=== PATIENT | female | born 1945 | race Two or more races ===

== ENCOUNTER 2020-03-09 12:17 | Emergency (ER) | payer MEDICARE, OTHER, SELFPAY ==
--- NOTE | 2020-03-09 | CT_ITS ---
EXAMINATION: CT HEAD WITHOUT CONTRAST CLINICAL INFORMATION: Severe right sided headache; history of Covid-19 infection and hypertension. COMPARISON: None TECHNIQUE: Contiguous axial imaging was performed from the skull base to vertex without intravenous administration of contrast. Multiplanar reformatted images are submitted. This CT examination was performed using dose optimization techniques as appropriate, variously including the following: *Automated exposure control *Adjustment of mA and/or kV according to patient size (this includes techniques or standardized protocols for targeted exams where dose is matched to indication/reason for exam; i.e. extremities or head) *Use of iterative reconstruction technique DLP: 643 mGy-cm FINDINGS: There is no evidence of acute intracranial hemorrhage or territorial infarction. No abnormal mass effect or midline shift is seen. Lozano to white matter differentiation is well preserved. No extra-axial fluid collections are identified. The ventricles are normal in size. There is no abnormal attenuation within the brain parenchyma. The osseous structures and soft tissues are normal. The mastoid air cells and visualized portions of the paranasal sinuses are well aerated. IMPRESSION: No acute intracranial pathology.
--- NOTE | 2020-03-09 | CT_ITS ---
CT ANGIOGRAM NECK WITH CONTRAST CT ANGIOGRAM BRAIN WITH CONTRAST CLINICAL INFORMATION: Severe headache and right-sided neck pain. COMPARISON: CT head performed earlier the same day. TECHNIQUE: Test bolus sequences followed by intravenous administration 70 mL of Omnipaque 350. Helical imaging was performed in the axial plane from the thoracic inlet to the skull vertex. Delayed postcontrast imaging of the head was also performed. The data was processed at the sleep technologist workstation for generation of MIP sequences. Angled MIPs and volume rendered reformatted images were also generated at an offline 3D workstation under concurrent supervision. Stenoses are assessed in accordance with NASCET criteria unless otherwise indicated. This CT examination was performed using dose optimization techniques as appropriate, variously including the following: *Automated exposure control *Adjustment of mA and/or kV according to patient size (this includes techniques or standardized protocols for targeted exams where dose is matched to indication/reason for exam; i.e. extremities or head) *Use of iterative reconstruction technique FINDINGS: BRAIN: [There is mild chronic microangiopathy. There is no intracranial hemorrhage, hydrocephalus, extra-axial surface collection, midline shift, or other herniation pattern. Lozano to white matter differentiation is diffusely maintained without evidence of an evolved acute territorial infarct. The basilar cisterns are preserved. No significant soft tissue abnormality. No acute osseous abnormality. The paranasal sinuses and the mastoid air cells are well aerated.] CERVICAL SOFT TISSUES AND LUNG APICES: Patchy groundglass and airspace opacities throughout the lungs bilaterally that are nonspecific and that can be followed with chest x-ray. There is multilevel cervical spondylosis. NECK CTA: [There is a classic 3 vessel configuration of the aortic arch. Proximal arch vessels are non-stenotic. The vertebral arteries are codominant. No significant ostial stenosis is visualized on either side. Both vertebral arteries are widely patent throughout their extracranial cervical course. Both common and internal carotid arteries are normal in course and caliber.] Atherosclerotic calcification of the carotid bifurcations bilaterally without significant stenosis. BRAIN CTA: Atherosclerotic calcification throughout the carotid siphons bilaterally without significant stenosis. No focal flow-limiting stenosis nor discrete proximal large artery occlusion. Assessment for aneurysms is limited by mixed arterial and venous phase bolus timing with no definite aneurysms identified accounting for artifact. Timing of the contrast bolus allows assessment of the major dural venous sinuses, which all opacify normally] IMPRESSION: - No acute intracranial findings. Mild chronic microangiopathy. - No acute arterial occlusions and no significant arterial stenoses within the head or neck. - There is multilevel cervical spondylosis. - Patchy groundglass and airspace opacities throughout the lungs bilaterally that are nonspecific and that can be followed with chest x-ray. Viral pulmonary infection not excluded.
[2020-03-09 12:34] VITALS: BP 139/76; PULSE 78; RESP 18; TEMP 35.8; O2SAT 97; BMI 30.9
--- NOTE | 2020-03-09 12:46 | ED_ITS ---
HPI - Headache General Chief Complaint: Headache <ZARA Hancock - Last Filed: 03/09/20 18:01> Stated Complaint: HEADACHE <ZARA Hancock - Last Filed: 03/09/20 18:01> Time Seen by Provider: 03/09/20 12:42 <ZARA Hancock - Last Filed: 03/09/20 18:01> Source: patient <ZARA Hancock - Last Filed: 03/09/20 18:01> Mode of arrival: ambulatory <ZARA Hancock - Last Filed: 03/09/20 18:01> Limitations: language barrier <ZARA Hancock - Last Filed: 03/09/20 18:01> History of Present Illness HPI Narrative: 74 y/o female with history of HTN, OA, s/p right total knee arthroplasty and recent admission here 02/22-02/27 due to COVID-19 related SOB and JAZMYNE presents today with right sided headache and neck pain that started at 6:15 this morning. Worse when laying flat, moving head/neck and with touch. No light or sound sensitivity. Denies trauma. <ZARA Hancock - Last Filed: 03/09/20 18:01> MD elicited complaint: headache <ZARA Hancock - Last Filed: 03/09/20 18:01> Pertinent past history: hypertension <ZARA Hancock - Last Filed: 03/09/20 18:01> Onset (ago): hour(s) <ZARA Hancock - Last Filed: 03/09/20 18:01> Time: 06:15 <ZARA Hancock - Last Filed: 03/09/20 18:01> Onset description: while at rest <ZARA Hancock - Last Filed: 03/09/20 18:01> Location: right, occipital, parietal and neck <ZARA Hancock - Last Filed: 03/09/20 18:01> Severity: severe <ZARA Hancock - Last Filed: 03/09/20 18:01> Quality & Timing: aching and constant <ZARA Hancock - Last Filed: 03/09/20 18:01> Exacerbating factors: movement of head/neck and other (laying down ) <ZARA Hancock Last Filed: 03/09/20 18:01> Relieving factors: nothing <ZARA Hancock Last Filed: 03/09/20 18:01> Context: occurred at rest <ZARA Hancock Last Filed: 03/09/20 18:01> Associated symptoms: neck stiffness <ZARA Hancock Last Filed: 03/09/20 18:01> Treatments prior to arrival: acetaminophen <ZARA Hancock Last Filed: 03/09/20 18:01> Related Data Home Medications: Previous Rx's Medication Instructions Recorded zfomtmfjig-idnnequzscfrq-phcx 1 cap PO Q6H PRN #10 cap 03/09/20 [Fioricet] tizanidine 2 mg PO TID PRN #10 tab 03/09/20 <ZARA Hancock Last Filed: 03/09/20 18:01> Allergies/Adverse Reactions: Allergies Allergy/AdvReac Type Severity Reaction Status Date / Time SEASONAL ALLERGIES Allergy Intermediate SNEEZING Uncoded 02/23/20 15:36 kyree inhibitors Allergy Unknown Uncoded 07/26/19 00:00 pollen Allergy Unknown Uncoded 07/26/19 00:00 <ZARA Hancock Last Filed: 03/09/20 18:01> Review of Systems Constitutional: Constitutional: Denies chills, Denies fever(s) and Reports headache(s) <ZARA Hancock Last Filed: 03/09/20 18:01> Eyes: Eyes: Denies blurry vision, Denies change in vision and Denies diplopia <ZARA Hancock Last Filed: 03/09/20 18:01> ENT: Reports Normal hearing present, Denies dental pain, Denies vertigo, Denies dizziness, Denies otalgia, Reports headache(s), Denies hearing loss, Reports neck pain, Denies disequilibrium, Denies tinnitus, Denies sinus pain and Denies sinus pressure <ZARA Hancock Last Filed: 03/09/20 18:01> Cardiovascular: Cardiovascular: Denies chest pain and Denies dyspnea <ZARA Hancock - Last Filed: 03/09/20 18:01> Respiratory: Respiratory: Denies cough, Denies dyspnea and Denies wheezing <ZARA Hancock Last Filed: 03/09/20 18:01> Gastrointestinal: Gastrointestinal: Denies abdominal pain, Denies diarrhea, Denies nausea and Denies vomiting <ZARA Hancock Last Filed: 03/09/20 18:01> Musculoskeletal: Musculoskeletal: Denies abnormal gait, Denies back pain, Reports neck pain and Denies numbness <ZARA Hancock - Last Filed: 03/09/20 18:01> Integumentary/Breasts: Skin/Breast: Reports system reviewed and no additional complaints, except as docu <ZARA Hancock Last Filed: 03/09/20 18:01> Neurologic: Reports Normal hearing present, Denies abnormal gait, Denies vertigo, Denies dizziness, Reports headache(s), Denies focal weakness, Denies numbness and Denies disequilibrium <ZARA Hancock Last Filed: 03/09/20 18:01> Psychiatric: Psychiatric: Reports no additional psychiatric complaints <ZARA Hancock Last Filed: 03/09/20 18:01> Endocrine: Endocrine: Reports no additional endocrine complaints <ZARA Hancock Last Filed: 03/09/20 18:01> Hematologic/Lymphatic: Hematologic/Lymphatic: Reports no additional hematologic/lymphatic complaints <ZARA Hancock Last Filed: 03/09/20 18:01> Allergic/Immunologic: Allergic/Immunologic: Denies wheezing <ZARA Hancock Last Filed: 03/09/20 18:01> [facility] Past Medical History Attestation statement: The following information was validated with the patient. <ZARA Hancock Last Filed: 03/09/20 18:01> Medical History: Medical History Arthritis Hypertension <ZARA Hancock - Last Filed: 03/09/20 18:01> Surgical History: Surgical History Total knee replacement status <ZARA Hancock - Last Filed: 03/09/20 18:01> Social History Social History: Social History Smoked in Last 30 Days: No Use of substances other than those prescribed or required for medical reasons: No Advance Directives: Yes Advance Directives Information Provided: Yes Advance Directives on File: No <ZARA Hancock - Last Filed: 03/09/20 18:01> Physical Exam Vital Signs and I&O and Narrative: Vital Signs and I&O: Vital Signs Temp 98.8 F 03/09/20 13:18 Pulse 80 03/09/20 16:46 Resp 20 03/09/20 16:46 BP 163/74 H 03/09/20 16:46 Pulse Ox 98 03/09/20 16:46 Intake & Output 03/09/20 03/09/20 03/10/20 06:59 18:59 06:59 Intake Total 1000 / 1000 Balance 1000 / 1000 Weight 79.379 kg Intake: Intake, IV Amoun t 1000 / 1000 0.9 % Sodium C hloride 1,000 ml 1000 / 1000 @ 999 mls/hr I VCONT .Q1H1M [facility] Rx#:[id number] Body Mass Index 30.9 <ZARA Hancock - Last Filed: 03/09/20 18:01> Vital Signs and I&O: Vital Signs Temp 98.8 F 03/09/20 13:18 Pulse 80 03/09/20 16:46 Resp 20 03/09/20 16:46 BP 163/74 H 03/09/20 16:46 Pulse Ox 98 03/09/20 16:46 Intake & Output 03/09/20 03/09/20 03/10/20 06:59 18:59 06:59 Intake Total 1000 / 1000 Balance 1000 / 1000 Weight 79.379 kg Intake: Intake, IV Amoun t 1000 / 1000 0.9 % Sodium C hloride 1,000 ml 1000 / 1000 @ 999 mls/hr I VCONT .Q1H1M [facility]OTT Rx#:[id number] Body Mass Index 30.9 <Darren Hernandez DO - Last Filed: 03/09/20 20:20> Const: General: cooperative, healthy appearing and no acute distress <ZARA Hancock - Last Filed: 03/09/20 18:01> Nutritional Appearance: average body habitus <ZARA Hancock Last Filed: 03/09/20 18:01> Orientation/consciousness: patient oriented x3 <ZARA Hancock - Last Filed: 03/09/20 18:01> Limitations: ambulation with cane <ZARA Hancock Last Filed: 03/09/20 18:01> HENMT: Head: Yes normal to inspection, Yes normocephalic, Yes atraumatic and Yes scalp tenderness (right parietal and right occipital ) <ZARA Hancock Last Filed: 03/09/20 18:01> Ears: hearing grossly normal bilaterally <ZARA Hancock Last Filed: 03/09/20 18:> General nose exam: Normal external nose present <ZARA Hancock Last Filed: 03/09/20 18:01> Face and sinus: Yes normal facial exam <ZARA Hancock Last Filed: 03/09/20 18:01> Mouth: Normal oral and palatal mucosa present <ZARA Hancock Last Filed: 03/09/20 18:01> Teeth and gingiva: dentition normal <ZARA Hancock Last Filed: 03/09/20 18:01> Throat: Yes posterior oropharynx normal <ZARA Hancock Last Filed: 03/09/20 18:01> Eyes: General: appearance normal, both eyes and all related structures <ZARA Hancock Last Filed: 03/09/20 18:01> Pupils: Equal, round and reactive pupils present <ZARA Hancock Last Filed: 03/09/20 18:01> EOM: EOMs intact bilaterally <ZARA Hancock Last Filed: 03/09/20 18:01> Neck: Neck: Yes normal visual inspection, Yes trachea midline, Yes tender (along lateral and anterior aspect of neck) and Yes torticollis <ZARA Hancock Last Filed: 03/09/20 18:01> Thyroid: Thyroid normal <ZARA Hancock Last Filed: 03/09/20 18:01> Chest: Chest palpation & inspection: normal inspection of the chest <ZARA Hancock Last Filed: 03/09/20 18:01> Resp: Effort & Inspection: normal respiratory effort <ZARA Hancock Last Filed: 03/09/20 18:> Auscultation: clear to auscultation bilaterally <ZARA Hancock Last Filed: 03/09/20 18:> Cardio: Rate: regular rate <ZARA Hancock Last Filed: 03/09/20 18:> Rhythm: regular rhythm <ZARA Hancock Last Filed: 03/09/20 18:> Heart sounds: S1 normal heart sound present and S2 normal heart sound present <ZARA Hancock Last Filed: 03/09/20 18:01> Back/Spine/Pelvis: Cervical Spine: pain with cervical ROM, cervical spasm, No Cervical spine tenderness, No step off deformity and cervical ROM abnormal <ZARA Hancock Last Filed: 03/09/20 18:> Thoracic/Lumbar Spine: thoracic and lumbar spine normal to inspection <ZARA Hancock Last Filed: 03/09/20 18:> Skin: General skin exam: no rashes or lesions noted <ZARA Hancock Last Filed: 03/09/20 18:> Neuro: General: patient oriented x3 <ZARA Hancock Last Filed: 03/09/20 18:> Cranial nerves: Yes CN's II-XII intact bilaterally, Yes Equal, round and reactive pupils present and Yes Normal hearing present <ZARA Hancock Last Filed: 03/09/20 18:> Cognition (Neuro): normal cognition <ZARA Hancock Last Filed: 03/09/20 18:> Gait exam (Neuro): Normal gait present <ZARA Hancock Last Filed: 03/09/20 18:01> Motor exam (neuro): 5/5 motor strength present throughout and Pronator motor function not present <ZARA Hancock Last Filed: 03/09/20 18:01> Coordination: yywumz-tx-emxb test normal and yblr-fd-udfq test normal <ZARA Hancock - Last Filed: 03/09/20 18:01> Extrem: Right upper extremity: normal to inspection <ZARA Hancock - Last Filed: 03/09/20 18:01> Psych: Appearance: grossly normal <ZARA Hancock - Last Filed: 03/09/20 18:01> Mental Status: mental status grossly normal <ZARA Hancock Last Filed: 03/09/20 18:01> Speech and movement: Normal speech and movement present <ZARA Hancock - Last Filed: 03/09/20 18:01> Course Course Hospital Course: reports severe right sided headache at 6:15 am - took tylenol with no improvement. PCP insructed her to come into ED for evaluation. Non-focal neuro exam. Hx HTN and recent COVID-19. Will get CT head, basic labs. Low dose morphine ordered for now. <ZARA Hancock Last Filed: 03/09/20 18:01> Reevaluation(s) Reevaluation #1: CT head was negative. Patient's headache significantly improved after low dose of morphine. Labs show leuokcytosis of unclear etiology as well as signs of mild dehydration. Will give 1L IVF. <ZARA Hancock - Last Filed: 03/09/20 18:01> Time: 17:03 <ZARA Hancock - Last Filed: 03/09/20 18:01> Reevaluation #2: CTA head/neck was unmarkable. Etiology of her neck pain likely muscular. She has some improvement in her headache after morphine x2 and low dose ativan. <ZARA Hancock - Last Filed: 03/09/20 18:01> Time: 17:55 <ZARA Hancock Last Filed: 03/09/20 18:01> Reevaluation #3: patient's headache and neck soreness are improved. she is stable for discharge. <ZARA Hancock Last Filed: 03/09/20 18:01> MDM - Headache Differential Diagnosis Differential diagnosis: Likely migraine, tension headache, subarachnoid hemorrhage and headache <ZARA Hancock Last Filed: 03/09/20 18:01> Medical Records Attestation: I reviewed the patient's medical records. <ZARA Hancock - Last Filed: 03/09/20 18:01> Lab Data Attestation: I reviewed the patient's lab results. <ZARA Hnacock - Last Filed: 03/09/20 18:01> Result diagrams: : 03/09/20 13:25 03/09/20 13:25 <ZARA Hancock - Last Filed: 03/09/20 18:01> Labs: Lab Results 03/09/20 03/09/20 Range/Units 13:25 13:25 WBC 14.5 H (4.8-10.8) X10*3/uL RBC 4.86 (4.20-5.50) X10*6/uL Hgb 13.9 (12.0-16.0) g/dl Hct 41.1 (37-47) % MCV 84.6 (80-98) fL MCH 28.6 (27.0-33.0) pg MCHC 33.8 (31.0-35.0) g/dl RDW 13.1 (11.0-16.0) % Plt Count 269 (160-400) X10*3/uL MPV 10.3 (9.4-12.3) fL Immature Gran % (Auto) 0.8 H (0.0-0.4) % Neut % (Auto) 80.3 H (45-73) % Lymph % (Auto) 10.2 L (20-40) % [place] % (Auto) 7.8 (2-11) % Eos % (Auto) 0.8 (0-4) % Baso % (Auto) 0.1 (0-2) % Neut # (Auto) 11.6 H (2.0-8.3) X10*3/uL Lymph # (Auto) 1.5 (1.2-4.9) X10*3/uL [place] # (Auto) 1.1 (0.1-1.2) X10*3/uL Eos # (Auto) 0.1 (0.0-0.4) X10*3/uL Baso # (Auto) 0.0 (0.0-0.2) X10*3/uL Abs Immat Gran (auto) 0.12 H (0.00-0.03) X10*3/uL Absolute Nucleated RBC 0.000 (0.0-0.012) X10*3/uL Nucleated RBC % (auto) 0.0 (0.0-0.2) /100WBC Sodium 134 L (135-145) mmol/L Potassium 3.5 (3.3-5.1) mmol/l Chloride 94 L (96-108) mmol/L Carbon Dioxide 30 H (22-29) mmol/L Anion Gap 14 (12-20) BUN 22 H (9-16) mg/dL Creatinine 0.93 (0.5-1.4) mg/dL Estim Creat Clear Calc 52.1 Estimated GFR 59 Random Glucose 121 H (60-115) mg/dL Calcium 8.8 (8.4-10.2) mg/dL <ZARA Hancock - Last Filed: 03/09/20 18:01> Lab Results 03/09/20 03/09/20 Range/Units 13:25 13:25 WBC 14.5 H (4.8-10.8) X10*3/uL RBC 4.86 (4.20-5.50) X10*6/uL Hgb 13.9 (12.0-16.0) g/dl Hct 41.1 (37-47) % MCV 84.6 (80-98) fL MCH 28.6 (27.0-33.0) pg MCHC 33.8 (31.0-35.0) g/dl RDW 13.1 (11.0-16.0) % Plt Count 269 (160-400) X10*3/uL MPV 10.3 (9.4-12.3) fL Immature Gran % (Auto) 0.8 H (0.0-0.4) % Neut % (Auto) 80.3 H (45-73) % Lymph % (Auto) 10.2 L (20-40) % [place] % (Auto) 7.8 (2-11) % Eos % (Auto) 0.8 (0-4) % Baso % (Auto) 0.1 (0-2) % Neut # (Auto) 11.6 H (2.0-8.3) X10*3/uL Lymph # (Auto) 1.5 (1.2-4.9) X10*3/uL [place] # (Auto) 1.1 (0.1-1.2) X10*3/uL Eos # (Auto) 0.1 (0.0-0.4) X10*3/uL Baso # (Auto) 0.0 (0.0-0.2) X10*3/uL Abs Immat Gran (auto) 0.12 H (0.00-0.03) X10*3/uL Absolute Nucleated RBC 0.000 (0.0-0.012) X10*3/uL Nucleated RBC % (auto) 0.0 (0.0-0.2) /100WBC Sodium 134 L (135-145) mmol/L Potassium 3.5 (3.3-5.1) mmol/l Chloride 94 L (96-108) mmol/L Carbon Dioxide 30 H (22-29) mmol/L Anion Gap 14 (12-20) BUN 22 H (9-16) mg/dL Creatinine 0.93 (0.5-1.4) mg/dL Estim Creat Clear Calc 52.1 Estimated GFR 59 Random Glucose 121 H (60-115) mg/dL Calcium 8.8 (8.4-10.2) mg/dL <Darren Hernandez DO - Last Filed: 03/09/20 20:20> Discharge Plan Discharge Clinical Impression: Headache Qualifiers: Headache type: tension-type Headache chronicity pattern: acute headache Intractability: intractable Qualified Code(s): G44.201 - Tension-type headache, unspecified, intractable Cervical muscle strain Qualifiers: Encounter type: initial encounter Qualified Code(s): S16.1XXA - Strain of muscle, fascia and tendon at neck level, initial encounter <ZARA Hancock - Last Filed: 03/09/20 18:01> Patient Disposition: Home, Self-Care <ZARA Hancock - Last Filed: 03/09/20 18:01> Instructions: Cervical Strain (ED), Acute Headache (ED) <ZARA Hancock - Last Filed: 03/09/20 18:01> Additional Instructions: Follow up with your Primary Care Doctor as needed. Your CT scans of your head and neck were unremarkable today. <ZARA Hancock - Last Filed: 03/09/20 18:01> Prescriptions: New tizanidine 2 mg tablet 2 mg PO TID PRN (Reason: muscle spasticity) Qty: 10 RF: 0 tpdkomexzm-ebotibzfntika-vqdb [Fioricet] 50-300-40 mg capsule 1 cap PO Q6H PRN (Reason: pain) Qty: 10 RF: 0 <ZARA Hancock - Last Filed: 03/09/20 18:01> Interventions: ED Discharge Assessment Last Done: 03/09/20 18:16 <ZARA Hancock - Last Filed: 03/09/20 18:01> Discharge Date/Time: 03/09/20 18:18 <ZARA Hancock - Last Filed: 03/09/20 18:01>
[2020-03-09 13:18] VITALS: BP 133/72; PULSE 85; RESP 18; TEMP 37.1; O2SAT 98
[2020-03-09] MEDS: Morphine Sulfate 2 MG/ML CARTRIDGE IVPUSH ×2 (13:22→16:48)
[2020-03-09 13:36] LABS: MANUAL DIFF FLAG NO
[2020-03-09 13:46] LABS: Basophils Percent Auto 0.1 % (0-2); Eosinophils Absolute Auto 0.1 X10*3/uL (0.0-0.4); Eosinophils Percent Auto 0.8 % (0-4); Hematocrit 41.1 % (37-47); Hemoglobin 13.9 g/dl (12.0-16.0); Imm Gran Abs Auto 0.12 X10*3/uL (0.00-0.03); Imm Gran Pct Auto 0.8 % (0.0-0.4); Lymphocytes Absolute Auto 1.5 X10*3/uL (1.2-4.9); Lymphocytes Percent Auto 10.2 % (20-40); Mean Corpuscular HGB Conc 33.8 g/dl (31.0-35.0); Mean Corpuscular Hemoglobin 28.6 pg (27.0-33.0); Mean Corpuscular Volume 84.6 fL (80-98); Mean Platelet Volume 10.3 fL (9.4-12.3); Monocytes Absolute Auto 1.1 X10*3/uL (0.1-1.2); Monocytes Percent Auto 7.8 % (2-11); Neutrophils Absolute Auto 11.6 X10*3/uL (2.0-8.3); Neutrophils Percent Auto 80.3 % (45-73); Platelet Count 269 X10*3/uL (160-400); Red Blood Count 4.86 X10*6/uL (4.20-5.50); Red Cell Distribution Width 13.1 % (11.0-16.0); White Blood Count 14.5 X10*3/uL (4.8-10.8)
[2020-03-09 14:07] LABS: Anion Gap 14 (12-20); Blood Urea Nitrogen 22 mg/dL (9-16); Calcium 8.8 mg/dL (8.4-10.2); Carbon Dioxide 30 mmol/L (22-29); Chloride 94 mmol/L (96-108); Creatinine Clr Calc Pharmacy 52.1; Estimated Glomerular Filt Rate 59; Glucose Random 121 mg/dL (60-115); Potassium 3.5 mmol/l (3.3-5.1); Sodium 134 mmol/L (135-145)
[2020-03-09 14:40] VITALS: BP 179/73; PULSE 74; O2SAT 97
[2020-03-09] MEDS: 0.9 % Sodium Chloride 1,000 ML 999 ML IVCONT (14:42)
[2020-03-09] MEDS: iohexoL 350 MG/ML 100 ML INFUS..BTL IV (15:43)
[2020-03-09] MEDS: LORazepam 2 MG/ML VIAL 0.5 MG IVPUSH (15:44)
[2020-03-09 15:49] VITALS: BP 165/75
[2020-03-09 16:46] VITALS: BP 163/74; PULSE 80; RESP 20; O2SAT 98
== END 2020-03-09 18:18 | disposition home or self-care (01) ==
PROVIDERS: Physician Assistant; Emergency Provider Emergency Medicine; PCP Family Medicine
DX: G44.201 Tension-type headache, unspecified, intractable (principal); S16.1XXA Strain of muscle, fascia and tendon at neck level, initial encounter; X58.XXXA Exposure to other specified factors, initial encounter; I10 Essential (primary) hypertension; Y93.84 Activity, sleeping; Y92.013 Bedroom of single-family (private) house as the place of occurrence of the external cause; Y99.9 Unspecified external cause status
CPT/HCPCS: 36415; 70450; 70496; 70498; 80048; 85025; 96361; 96374; 96375; 96376; 99284; J2060; J2270

== ENCOUNTER 2020-05-16 12:00 | Outpatient (RCR) | payer MEDICARE, MEDICAID, OTHER, SELFPAY | END 2020-05-16 15:36 | disposition other institution (70) | LOC: HO.PT 12:00 | PROVIDERS: PCP Family Medicine; Visit Provider Family Medicine | DX: M54.2 Cervicalgia (principal); G89.29 Other chronic pain; M25.512 Pain in left shoulder | CPT/HCPCS: 97110; 97140; 97161 ==

== ENCOUNTER 2020-11-13 14:00 | Outpatient (RCR) | payer MEDICARE, MEDICAID, OTHER, SELFPAY | END 2020-12-03 10:11 | disposition home or self-care (01) | LOC: HO.PT 14:00 | PROVIDERS: PCP Family Medicine; Visit Provider Family Medicine | DX: M54.5 Low back pain (principal) | CPT/HCPCS: 97110; 97112; 97140; 97162 ==

== ENCOUNTER 2021-01-19 11:55 | Emergency (ER) | payer MEDICARE, MEDICAID, SELFPAY ==
--- NOTE | ~2021-01-19 | CT_ITS ---
EXAMINATION: CT HEAD WITHOUT CONTRAST CLINICAL INFORMATION: Left facial weakness. COMPARISON: Head CT from 03/09/2020. TECHNIQUE: Contiguous axial imaging was performed from the skull base to vertex without intravenous administration of contrast. This CT examination was performed using dose optimization techniques as appropriate, variously including the following: *Automated exposure control *Adjustment of mA and/or kV according to patient size (this includes techniques or standardized protocols for targeted exams where dose is matched to indication/reason for exam; i.e. extremities or head) *Use of iterative reconstruction technique DLP: 598 mGy-cm FINDINGS: There is atherosclerotic calcification of cavernous carotid arteries. There are areas of chronic hypoattenuation in deep white matter frontal lobes, likely sequela of chronic microangiopathy. The alexander-white matter differentiation is well preserved. No intracranial hemorrhage, extra-axial fluid collection, focal mass effect or midline shift. No evidence of an acute major vascular territory infarction. The ventricles have normal size and configuration; no hydrocephalus. The brainstem and cerebellum are unremarkable. The calvarium is intact. There are frothy secretions within left sphenoid sinus. Otherwise, the visualized paranasal sinuses are well aerated. There is improved aeration of left mastoid air cells compared to 03/09/2020. No mastoid erosion. The visualized portions of the orbits, globes and temporomandibular joints are intact. Prior ocular lens replacements. CT/CT head/brain wo con IMPRESSION: No evidence of hemorrhage or other acute intracranial pathology compared to 03/09/2020.
[2021-01-19 12:12] VITALS: BP 166/62; PULSE 69; RESP 16; TEMP 37.1; O2SAT 99; BMI 32.8
--- NOTE | 2021-01-19 13:19 | ECG_ITS ---
Test Reason : WEAKNESS Blood Pressure : / mmHG Vent. Rate : 063 BPM Atrial Rate : 063 BPM P-R Int : 184 ms QRS Dur : 078 ms QT Int : 428 ms P-R-T Axes : 039 014 015 degrees QTc Int : 437 ms Normal sinus rhythm Possible Left atrial enlargement Borderline ECG When compared with ECG of 23-FEB-2020 12:15, No significant change was found Referred By: Patti Ruiz Electronically Signed By:MOR HOGAN
--- NOTE | 2021-01-19 13:47 | ED_ITS ---
HPI - General Adult General Chief complaint: Weakness Stated complaint: headache, weakness Time Seen by Provider: 01/19/21 13:18 Source: patient Mode of arrival: ambulatory Limitations: no limitations History of Present Illness HPI narrative: 75 years old female came in for evaluation of left facial pain since 05:00, patient take naproxen that relieved her symptoms but patient was still concerned that because she had 2 sisters of COVID last year. No persistent weakness Related Data Previous Rx's Medication Instructions Recorded roimcoflcn-cqzexaqshixih-oxswqmnz 1 cap PO Q6H PRN #10 cap 03/09/20 50 mg-300 mg-40 mg capsule (Fioricet) tizanidine 2 mg tablet 2 mg PO TID PRN #10 tab 03/09/20 Allergies Allergy/AdvReac Type Severity Reaction Status Date / Time SEASONAL ALLERGIES Allergy Intermediate SNEEZING Uncoded 02/23/20 15:36 kyree inhibitors Allergy Unknown Unknown Uncoded 01/19/21 12:19 pollen Allergy Unknown Itchy Eyes Uncoded 01/19/21 12:19 PMFSH Past Medical History Medical History Arthritis Hypertension Surgical History Total knee replacement status Social History Social History Alcohol intake: never Patient Tobacco Use Status: Never used Tobacco Use of substances other than those prescribed or required for medical reasons: No Advance Directives: No Advance Directives Information Provided: Yes Physical Exam Vital Signs: Vital Signs: Last Vital Signs Temp 98.7 F 01/19/21 12:12 Pulse 69 01/19/21 12:12 Resp 16 01/19/21 12:12 BP 166/62 H 01/19/21 12:12 Pulse Ox 99 01/19/21 12:12 Body Mass Index 32.8 Course Course Course Narrative: Assessment and plan. 75-year-old female came in for evaluation of left-sided facial pain with no weakness, patient was over anxious about her symptoms because 2 of her sisters from COVID symptoms. Patient has NIH stroke score of 0, with normal neuro exam, normal CT head. Patient also had unremarkable findings today. Will discharge to follow-up with PCP Medical Decision Making Lab Data Lab results reviewed: Yes I reviewed the patient's lab results. Result diagrams: 01/19/21 14:43 01/19/21 14:43 Labs: Lab Results 01/19/21 01/19/21 01/19/21 Range/Units 14:43 14:43 14:43 WBC 6.2 (4.8-10.8) X10*3/uL RBC 4.43 (4.20-5.50) X10*6/uL Hgb 12.9 (12.0-16.0) g/dl Hct 38.6 (37-47) % MCV 87.1 (80-98) fL MCH 29.1 (27.0-33.0) pg MCHC 33.4 (31.0-35.0) g/dl RDW 13.2 (11.0-16.0) % Plt Count 214 (160-400) X10*3/uL MPV 10.2 (9.4-12.3) fL Immature Gran % (Auto) 0.3 (0.0-0.4) % Neut % (Auto) 62.1 (45-73) % Lymph % (Auto) 27.5 (20-40) % Bullock % (Auto) 7.5 (2-11) % Eos % (Auto) 2.3 (0-4) % Baso % (Auto) 0.3 (0-2) % Lymph # (Auto) 1.7 (1.2-4.9) X10*3/uL Bullock # (Auto) 0.5 (0.1-1.2) X10*3/uL Eos # (Auto) 0.1 (0.0-0.4) X10*3/uL Baso # (Auto) 0.0 (0.0-0.2) X10*3/uL Abs Immat Gran (auto) 0.02 (0.00-0.03) X10*3/uL Absolute Neuts (auto) 3.8 (2.0-8.3) X10*3/uL Absolute Nucleated RBC 0.000 (0.0-0.012) X10*3/uL Nucleated RBC % (auto) 0.0 (0.0-0.2) /100WBC Sodium 142 (135-145) mmol/L Potassium 4.8 (3.3-5.1) mmol/L Chloride 105 (96-108) mmol/L Carbon Dioxide 29 (22-29) mmol/L Anion Gap 13 (12-20) BUN 23 H (9-16) mg/dL Creatinine 1.24 (0.5-1.4) mg/dL Estim Creat Clear Calc 39.5 Estimated GFR 42 Random Glucose 97 (60-115) mg/dL Calcium 9.4 D (8.4-10.2) mg/dL Total Bilirubin 1.1 H (0.0-1.0) mg/dL Direct Bilirubin 0.4 (0.0-0.5) mg/dL AST 14 (5-31) U/L ALT 10 (0-31) U/L Alkaline Phosphatase 82 (39-117) U/L Total Protein 6.6 (6.5-8.0) g/dL Albumin 4.1 (3.5-5.0) g/dL Lipase 34 (8-78) U/L Urine Color Urine Appearance Urine pH (5.0-8.0) Ur Specific [place] (1.005-1.025) Urine Protein (NEG-TRACE) MG/DL Urine Glucose (UA) (NEG) MG/DL Urine Ketones (NEG) MG/DL Urine Blood (NEG) Urine Nitrite (NEG) Ur Leukocyte Esterase (NEG) Urine RBC (0) /HPF Urine WBC (0-4) /HPF Ur Squamous Epith Cells /LPF Urine Bacteria /LPF 01/19/21 Range/Units 14:43 WBC (4.8-10.8) X10*3/uL RBC (4.20-5.50) X10*6/uL Hgb (12.0-16.0) g/dl Hct (37-47) % MCV (80-98) fL MCH (27.0-33.0) pg MCHC (31.0-35.0) g/dl RDW (11.0-16.0) % Plt Count (160-400) X10*3/uL MPV (9.4-12.3) fL Immature Gran % (Auto) (0.0-0.4) % Neut % (Auto) (45-73) % Lymph % (Auto) (20-40) % Bullock % (Auto) (2-11) % Eos % (Auto) (0-4) % Baso % (Auto) (0-2) % Lymph # (Auto) (1.2-4.9) X10*3/uL Bullock # (Auto) (0.1-1.2) X10*3/uL Eos # (Auto) (0.0-0.4) X10*3/uL Baso # (Auto) (0.0-0.2) X10*3/uL Abs Immat Gran (auto) (0.00-0.03) X10*3/uL Absolute Neuts (auto) (2.0-8.3) X10*3/uL Absolute Nucleated RBC (0.0-0.012) X10*3/uL Nucleated RBC % (auto) (0.0-0.2) /100WBC Sodium (135-145) mmol/L Potassium (3.3-5.1) mmol/L Chloride (96-108) mmol/L Carbon Dioxide (22-29) mmol/L Anion Gap (12-20) BUN (9-16) mg/dL Creatinine (0.5-1.4) mg/dL Estim Creat Clear Calc Estimated GFR Random Glucose (60-115) mg/dL Calcium (8.4-10.2) mg/dL Total Bilirubin (0.0-1.0) mg/dL Direct Bilirubin (0.0-0.5) mg/dL AST (5-31) U/L ALT (0-31) U/L Alkaline Phosphatase (39-117) U/L Total Protein (6.5-8.0) g/dL Albumin (3.5-5.0) g/dL Lipase (8-78) U/L Urine Color STRAW Urine Appearance CLEAR Urine pH 7.0 (5.0-8.0) Ur Specific [place] <= 1.005 (1.005-1.025) Urine Protein NEG (NEG-TRACE) MG/DL Urine Glucose (UA) NEG (NEG) MG/DL Urine Ketones NEG (NEG) MG/DL Urine Blood TRACE (NEG) Urine Nitrite NEG (NEG) Ur Leukocyte Esterase NEG (NEG) Urine RBC 0-2 (0) /HPF Urine WBC 0 (0-4) /HPF Ur Squamous Epith Cells TRACE /LPF Urine Bacteria NONE /LPF Imaging Data CT scan - head: Radiologist's impression: No evidence of hemorrhage or other acute intracranial pathology compared to old CT. ECG Data Interpretation: Normal sinus rhythm at 63 beats per minutes, normal axis deviation, normal intervals, nonspecific ST-T changes in inferior leads. Discharge Plan Discharge Clinical Impression: Acute facial pain Patient Disposition: Home, Self-Care Instructions: Atypical Facial Pain (ED) Prescriptions: No Action tizanidine 2 mg tablet 2 mg PO TID PRN (Reason: muscle spasticity) Qty: 10 RF: 0 scmtwczitp-qmigtkeqfwwif-rbnv [Fioricet] 50-300-40 mg capsule 1 cap PO Q6H PRN (Reason: pain) Qty: 10 RF: 0 Referrals: Gerda Mc MD [Primary Care Provider] - 2 days
[2021-01-19 14:47] LABS: MANUAL DIFF FLAG NO
[2021-01-19 14:49] LABS: Basophils Percent Auto 0.3 % (0-2); Eosinophils Absolute Auto 0.1 X10*3/uL (0.0-0.4); Eosinophils Percent Auto 2.3 % (0-4); Hematocrit 38.6 % (37-47); Hemoglobin 12.9 g/dl (12.0-16.0); Imm Gran Abs Auto 0.02 X10*3/uL (0.00-0.03); Imm Gran Pct Auto 0.3 % (0.0-0.4); Lymphocytes Absolute Auto 1.7 X10*3/uL (1.2-4.9); Lymphocytes Percent Auto 27.5 % (20-40); Mean Corpuscular HGB Conc 33.4 g/dl (31.0-35.0); Mean Corpuscular Hemoglobin 29.1 pg (27.0-33.0); Mean Corpuscular Volume 87.1 fL (80-98); Mean Platelet Volume 10.2 fL (9.4-12.3); Monocytes Absolute Auto 0.5 X10*3/uL (0.1-1.2); Monocytes Percent Auto 7.5 % (2-11); Neutrophils Absolute Auto 3.8 X10*3/uL (2.0-8.3); Neutrophils Percent Auto 62.1 % (45-73); Platelet Count 214 X10*3/uL (160-400); Red Blood Count 4.43 X10*6/uL (4.20-5.50); Red Cell Distribution Width 13.2 % (11.0-16.0); White Blood Count 6.2 X10*3/uL (4.8-10.8)
[2021-01-19 14:50] LABS: Glucose Urine UA NEG (NEG); Leukocyte Esterase Urine NEG (NEG); Nitrite Urine NEG (NEG); Specific Gravity - Urine <= 1.005 (1.005-1.025); UACC Culture Trigger NO; Urine Blood TRACE (NEG); Urine Ketones NEG (NEG); Urine Protein NEG (NEG-TRACE)
[2021-01-19 14:51] LABS: Appearance Urine CLEAR; Color Urine STRAW
[2021-01-19 14:57] LABS: RBC Urine 0-2 /HPF (0); Squamous Epithelial Cell Urine TRACE /LPF; WBC Urine 0 /HPF (0-4)
[2021-01-19 15:13] LABS: Anion Gap 13 (12-20); Blood Urea Nitrogen 23 mg/dL (9-16); Calcium 9.4 mg/dL (8.4-10.2); Carbon Dioxide 29 mmol/L (22-29); Chloride 105 mmol/L (96-108); Creatinine Clr Calc Pharmacy 39.5; Estimated Glomerular Filt Rate 42; Glucose Random 97 mg/dL (60-115); Potassium 4.8 mmol/L (3.3-5.1); Sodium 142 mmol/L (135-145)
[2021-01-19 15:15] LABS: Alanine Aminotransferase 10 U/L (0-31); Albumin Level 4.1 g/dL (3.5-5.0); Alkaline Phosphatase 82 U/L (39-117); Aspartate Amino Transferase 14 U/L (5-31); Bilirubin Direct 0.4 mg/dL (0.0-0.5); Bilirubin Total 1.1 mg/dL (0.0-1.0); Lipase 34 U/L (8-78); Total Protein 6.6 g/dL (6.5-8.0)
[2021-01-19 15:29] LABS: Influenza A PCR NEGATIVE (Negative); Influenza B PCR NEGATIVE (Negative); Resp Syncy Virus RNA Qual PCR NEGATIVE (Negative); SARS COV2 PCR INHOUSE NEGATIVE (Negative)
== END 2021-01-19 16:26 | disposition home or self-care (01) ==
PROVIDERS: Emergency Provider Emergency Medicine; PCP Family Medicine
DX: G50.1 Atypical facial pain (principal); Z20.822 Contact with and (suspected) exposure to COVID-19; R51.9 Headache, unspecified; I10 Essential (primary) hypertension
CPT/HCPCS: 0241U; 36415; 70450; 80048; 80076; 81001; 83690; 85025; 93005; 99284

== ENCOUNTER 2021-02-25 10:59 | Outpatient (REF) | payer MEDICARE, MEDICAID, SELFPAY ==
--- NOTE | ~2021-02-25 | MM_ITS ---
EXAMINATION: MM SCREENING DIGITAL BREAST TOMOSYNTHESIS, BILATERAL CLINICAL INFORMATION: Screening. Asymptomatic. The lifetime risk of breast cancer based on the Tyrer-Cuzick Model is 2.4%. COMPARISON: Mammography: January 18, 2020 and studies dating back to October 14, 2011 TECHNIQUE: Digital breast tomosynthesis is performed in both the craniocaudal and mediolateral oblique views along with computer-aided detection (CAD). Synthesized 2D images are generated from the tomosynthesis. FINDINGS: There are scattered areas of fibroglandular density (ACR BI-RADS breast composition Category b). There are no significant masses, abnormal calcifications, or other abnormalities. MM/MM tomosynthesis screening BI IMPRESSION: There are no significant changes from prior study. ASSESSMENT: BI-RADS 1: Negative RECOMMENDATION: Routine annual mammography screening. This patient's information was entered into a reminder system with a target due date for their next mammogram.
== END 2021-02-25 11:00 | disposition home or self-care (01) ==
LOC: HO.MAMMO 10:59
PROVIDERS: PCP Family Medicine; Visit Provider Family Medicine
DX: Z12.31 Encounter for screening mammogram for malignant neoplasm of breast (principal)
CPT/HCPCS: 77063; 77067

== ENCOUNTER 2021-04-04 11:45 | Outpatient (REF) | payer MEDICARE, MEDICAID, SELFPAY ==
--- NOTE | ~2021-04-04 | XR_ITS ---
EXAMINATION: XR KNEE, BILATERAL XR KNEE, LEFT CLINICAL INFORMATION: Pain COMPARISON: 07/26/2019 TECHNIQUE: AP standing view of both knees. Lateral and sunrise views of the left knee. FINDINGS: Left knee: No fracture or subluxation. Severe narrowing at the medial compartment. Prominent tricompartmental marginal osteophytes. Probable intra-articular body measuring 1 cm along the posterior joint line. Small joint effusion. Right knee: There is a total right knee arthroplasty with appropriate alignment of the femoral and tibial components on this frontal view. XR/XR knee LT 2V IMPRESSION: Severe tricompartmental degenerative changes of the left knee. Small joint effusion.
--- NOTE | ~2021-04-04 | XR_ITS ---
EXAMINATION: XR KNEE, BILATERAL XR KNEE, LEFT CLINICAL INFORMATION: Pain COMPARISON: 07/26/2019 TECHNIQUE: AP standing view of both knees. Lateral and sunrise views of the left knee. FINDINGS: Left knee: No fracture or subluxation. Severe narrowing at the medial compartment. Prominent tricompartmental marginal osteophytes. Probable intra-articular body measuring 1 cm along the posterior joint line. Small joint effusion. Right knee: There is a total right knee arthroplasty with appropriate alignment of the femoral and tibial components on this frontal view. XR/XR knee standing BI IMPRESSION: Severe tricompartmental degenerative changes of the left knee. Small joint effusion.
== END 2021-04-04 11:46 | disposition home or self-care (01) ==
LOC: HO.HOSX 11:45
PROVIDERS: Visit Provider Orthopaedic Surgery
DX: M17.12 Unilateral primary osteoarthritis, left knee (principal)
CPT/HCPCS: 73560; 73565; 99212

== ENCOUNTER → 2021-06-06 12:58 | Outpatient (BNVA) | payer MEDICARE, MEDICAID, SELFPAY | PROVIDERS: Visit Provider Physician Assistant | DX: M17.12 Unilateral primary osteoarthritis, left knee (principal) | CPT/HCPCS: 99212 ==

== ENCOUNTER → 2021-09-12 12:23 | Outpatient (BNVA) | payer MEDICARE, MEDICAID, SELFPAY | PROVIDERS: PCP Family Medicine; Visit Provider Physician Assistant | DX: Z01.818 Encounter for other preprocedural examination (principal); M17.12 Unilateral primary osteoarthritis, left knee | CPT/HCPCS: 99212 ==

== ENCOUNTER 2021-09-17 08:58 | Day surgery (SDC) | payer MEDICARE, MEDICAID, SELFPAY ==
--- NOTE | 2021-06-03 | ECG_ITS ---
Test Reason : preop Blood Pressure : / mmHG Vent. Rate : 068 BPM Atrial Rate : 068 BPM P-R Int : 184 ms QRS Dur : 074 ms QT Int : 410 ms P-R-T Axes : 052 041 026 degrees QTc Int : 435 ms Normal sinus rhythm Normal ECG When compared with ECG of 19-JAN-2021 14:49, No significant change was found Referred By: Cony Murdock Electronically Signed By:Ben Traylor
[2021-06-03 12:03] VITALS: BP 143/66; PULSE 70; RESP 20; O2SAT 98; BMI 32.9
[2021-06-03 13:18] LABS: Hematocrit 40.3 % (37.0-47.0); Mean Corpuscular HGB Conc 32.3 g/dl (31.0-35.0); Mean Corpuscular Hemoglobin 27.8 pg (27.0-33.0); Mean Corpuscular Volume 86.1 fL (80.0-98.0); Platelet Count 251 X10*3/uL (160-400); Red Blood Count 4.68 X10*6/uL (4.20-5.50); Red Cell Distribution Width 13.2 % (11.0-16.0); White Blood Count 7.1 X10*3/uL (4.8-10.8)
[2021-06-03 13:35] LABS: Anion Gap 13 (12-20); Blood Urea Nitrogen 31 mg/dL (9-16); Carbon Dioxide 29 mmol/L (22-29); Chloride 102 mmol/L (96-108); Creatinine Clr Calc Pharmacy 36.7; Estimated Glomerular Filt Rate 38; Potassium 4.1 mmol/L (3.3-5.1); Sodium 140 mmol/L (135-145)
[2021-06-03 13:59] LABS: MRSA Nasal PCR NEGATIVE (Negative); SA Nasal PCR NEGATIVE (Negative)
--- NOTE | 2021-06-10 08:32 | P.CONAN_ITS ---
HPI - Anesthesia Eval Consult details Narrative: Rescheduled to 09/2021 76yo F for Left Knee Replacement Total PCP cleared s/p R TKA 2018 with spinal PMFSH Active Problems Active Problems: All Active Problems (Updated 06/03/21 @ 11:56 by Ryann Johnston, MARINO) Primary localized osteoarthritis of left knee (Acute) Past Medical History Medical History Arthritis COVID-19 vaccine series completed History of COVID-19 Hypertension Osteoporosis Surgical History Surgical History H/O colonoscopy Hx of arthroscopy of knee Hx of breast biopsy Hx of cataract surgery Total knee replacement status Social History Social History Are you a primary chronic care nurse to a significant other at home: No 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) Alcohol intake: never Patient Tobacco Use Status: Former Tobacco user Quit Date: age 34 Tobacco use type: Cigarette Years Smoked: 20 Meds Allergies Allergy/AdvReac Type Severity Reaction Status Date / Time Seasonal Allergy Intermediate sneezing/itchy Verified 06/06/21 13:23 Allergies eyes DALY Inhibitors AdvReac Intermediate Cough Verified 06/06/21 13:23 Home Medications Medication Instructions Recorded Confirmed Last Taken Type acetaminophen 500 1,000 mg PO Q6H 06/03/21 06/03/21 Unknown History mg tablet PRN atenolol 25 mg 1 tab PO DAILY 06/03/21 06/03/21 Unknown History tablet fluoxetine 10 mg 1 cap PO DAILY 06/03/21 06/03/21 Unknown History capsule hydrochlorothiazi 1 tab PO DAILY 06/03/21 06/03/21 Unknown History de 25 mg tablet hydroxyzine HCl 25 mg PO BEDTIME 06/03/21 06/03/21 Unknown History 25 mg tablet loratadine 10 mg 1 tab PO DAILY 06/03/21 06/03/21 Unknown History tablet PRN melatonin 5 mg 1 tab PO BEDTIME 06/03/21 06/03/21 Unknown History tablet PRN naproxen 250 mg 1 tab PO BID 06/03/21 06/03/21 Unknown History tablet polyethylene 17 g PO DAILY 06/03/21 06/03/21 Unknown History glycol 3350 17 gram oral powder packet (Miralax) tramadol 50 mg 1 tab PO DAILY 06/03/21 06/03/21 Unknown History tablet PRN Exam Exam Date and Time: June 10, 2021 0832 Height,Weight and Vital Signs: Height 5 ft 3 in Weight 84.368 kg Last Vital Signs Pulse 70 06/03/21 12:03 Resp 20 06/03/21 12:03 BP 143/66 H 06/03/21 12:03 Pulse Ox 98 06/03/21 12:03 Pertinent Lab Results Pertinent Lab Results: Laboratory Tests 06/03/21 06/03/21 06/03/21 12:15 12:55 12:58 WBC 7.1 RBC 4.68 Hgb 13.0 Hct 40.3 MCV 86.1 MCH 27.8 MCHC 32.3 RDW 13.2 Plt Count 251 MPV 10.0 Absolute Nucleated RBC 0.000 Nucleated RBC % (auto) 0.0 Sodium Potassium Chloride Carbon Dioxide Anion Gap BUN Creatinine Estim Creat Clear Calc Estimated GFR Nasal Screen MRSA (PCR) NEGATIVE Nasal S. aureus Screen NEGATIVE Nasal MRSA/S.aureus Interp SEE NOTE Blood Type O Positive Antibody Screen NEGATIVE 06/03/21 12:58 WBC RBC Hgb Hct MCV MCH MCHC RDW Plt Count MPV Absolute Nucleated RBC Nucleated RBC % (auto) Sodium 140 Potassium 4.1 Chloride 102 Carbon Dioxide 29 Anion Gap 13 BUN 31 H Creatinine 1.34 Estim Creat Clear Calc 36.7 Estimated GFR 38 Nasal Screen MRSA (PCR) Nasal S. aureus Screen Nasal MRSA/S.aureus Interp Blood Type Antibody Screen Narrative Narrative: EKG 05/2021 Vent. Rate : 068 BPM ? ? Atrial Rate : 068 BPM ?? P-R Int : 184 ms? QRS Dur : 074 ms ? ? QT Int : 410 ms ? ? ? P-R-T Axes : 052 041 026 degrees ?? QTc Int : 435 ms ? Normal sinus rhythm Normal ECG When compared with ECG of 19-JAN-2021 14:49, No significant change was found
[2021-09-03 12:11] VITALS: BP 155/70; PULSE 69; RESP 20; O2SAT 98; BMI 33.5
[2021-09-03 14:15] LABS: MRSA Nasal PCR NEGATIVE (Negative); SA Nasal PCR NEGATIVE (Negative)
--- NOTE | 2021-09-05 13:21 | P.CONAN_ITS ---
Documented by User: Maria Alejandra Fleming NP 09/05/21 13:25 HPI - Anesthesia Eval Consult details Narrative: 76yo F for Left Knee Replacement Total PCP cleared s/p R TKA 2018 with spinal PMFSH Active Problems Active Problems: All Active Problems (Updated 06/03/21 @ 11:56 by Ryann Johnston RN) Primary localized osteoarthritis of left knee (Acute) Past Medical History Medical History Arthritis COVID-19 vaccine series completed History of COVID-19 Hypertension Osteoporosis Surgical History Surgical History H/O colonoscopy Hx of arthroscopy of knee Hx of breast biopsy Hx of cataract surgery Total knee replacement status Social History Social History Are you a primary career specialist to a significant other at home: No 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 If so, by whom?: No Are you DNR?: No Advance Directives: No (states would be daughter but no official HCP form) Advance Directives Information Provided: Yes (informational brochure given) Advance Directives on File: No Recently lost weight without trying: No Eating poorly because of decreased appetite: No Nutrition Risks: Surgical patient >75years Poor oral hygiene: No (upper partial & lower full denture) Meds Allergies Allergy/AdvReac Type Severity Reaction Status Date / Time Seasonal Allergies Allergy Intermediate sneezing/itchy Verified 09/12/21 12:33 eyes DALY Inhibitors AdvReac Intermediate Cough Verified 09/12/21 12:33 Home Medications Medication Instructions Recorded Confirmed Last Taken Type acetaminophen 500 mg tablet 1,000 mg PO Q6H PRN 06/03/21 06/03/21 Unknown History atenolol 25 mg tablet 1 tab PO DAILY 06/03/21 06/03/21 09/17/21 History fluoxetine 10 mg capsule 1 cap PO DAILY 06/03/21 06/03/21 09/17/21 History hydrochlorothiazide 25 mg tablet 1 tab PO DAILY 06/03/21 06/03/21 Unknown History loratadine 10 mg tablet 1 tab PO DAILY PRN 06/03/21 06/03/21 Unknown History melatonin 5 mg tablet 1 tab PO BEDTIME PRN 06/03/21 06/03/21 Unknown History naproxen 250 mg tablet 1 tab PO BID 06/03/21 06/03/21 Unknown History Exam Exam Date and Time: September 05, 2021 1321 Height,Weight and Vital Signs: Height 5 ft 3 in Weight 85.729 kg Last Vital Signs Pulse 69 09/03/21 12:11 Resp 20 09/03/21 12:11 BP 155/70 H 09/03/21 12:11 Pulse Ox 98 09/03/21 12:11 Pertinent Lab Results Pertinent Lab Results: Repeat CBC and BMP done at outside facility 08/19/2021, remain WNL Laboratory Tests 06/03/21 06/03/21 06/03/21 12:15 12:55 12:58 WBC 7.1 RBC 4.68 Hgb 13.0 Hct 40.3 MCV 86.1 MCH 27.8 MCHC 32.3 RDW 13.2 Plt Count 251 MPV 10.0 Absolute Nucleated RBC 0.000 Nucleated RBC % (auto) 0.0 Sodium Potassium Chloride Carbon Dioxide Anion Gap BUN Creatinine Estim Creat Clear Calc Estimated GFR Nasal Screen MRSA (PCR) NEGATIVE Nasal S. aureus Screen NEGATIVE Nasal MRSA/S.aureus Interp SEE NOTE Blood Type O Positive Antibody Screen NEGATIVE 06/03/21 09/03/21 09/03/21 12:58 12:25 12:55 WBC RBC Hgb Hct MCV MCH MCHC RDW Plt Count MPV Absolute Nucleated RBC Nucleated RBC % (auto) Sodium 140 Potassium 4.1 Chloride 102 Carbon Dioxide 29 Anion Gap 13 BUN 31 H Creatinine 1.34 Estim Creat Clear Calc 36.7 Estimated GFR 38 Nasal Screen MRSA (PCR) NEGATIVE Nasal S. aureus Screen NEGATIVE Nasal MRSA/S.aureus Interp SEE NOTE Blood Type O Positive Antibody Screen NEGATIVE Narrative Narrative: EKG 08/19/2021 NSR @ 75 Assessment and Plan Assessment Anesthesia Assessment: Chart Reviewed (Pt previously cx'd 06/2021 d/t COVID +) Documented by User: Jan Pandey MD 09/17/21 17:27 PMFSH Past Medical History Medical History Arthritis COVID-19 vaccine series completed History of COVID-19 Hypertension Osteoporosis Family History Family history of problems with anesthesia: No Surgical History Surgical History H/O colonoscopy Hx of arthroscopy of knee Hx of breast biopsy Hx of cataract surgery Total knee replacement status History of Problems with Anesthesia: No Social History Social History Are you a primary career specialist to a significant other at home: No 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 If so, by whom?: No Are you DNR?: No Advance Directives: No (states would be daughter but no official HCP form) Advance Directives Information Provided: Yes (informational brochure given) Advance Directives on File: No Recently lost weight without trying: No Eating poorly because of decreased appetite: No Nutrition Risks: Surgical patient >75years Poor oral hygiene: No (upper partial & lower full denture) Meds Allergies Allergy/AdvReac Type Severity Reaction Status Date / Time Seasonal Allergies Allergy Intermediate sneezing/itchy Verified 09/12/21 12:33 eyes DALY Inhibitors AdvReac Intermediate Cough Verified 09/12/21 12:33 Home Medications Medication Instructions Recorded Confirmed Last Taken Type acetaminophen 500 mg tablet 1,000 mg PO Q6H PRN 06/03/21 06/03/21 Unknown History atenolol 25 mg tablet 1 tab PO DAILY 12/27/21 12/27/21 04/12/22 History fluoxetine 10 mg capsule 1 cap PO DAILY 06/03/21 06/03/21 09/17/21 History hydrochlorothiazide 25 mg tablet 1 tab PO DAILY 06/03/21 06/03/21 Unknown History loratadine 10 mg tablet 1 tab PO DAILY PRN 06/03/21 06/03/21 Unknown History melatonin 5 mg tablet 1 tab PO BEDTIME PRN 06/03/21 06/03/21 Unknown History naproxen 250 mg tablet 1 tab PO BID 06/03/21 06/03/21 Unknown History Exam Airway Mallampati Class: I TM Dist: >3cm Neck ROM: Full Denture: Lower Partial: Upper Loose/Missing/Broken Teeth: Yes Heart: S1, S2 Lungs: b/l breath sounds Assessment and Plan Assessment Anesthesia Assessment: Anesthesia Plan Discussed Final Anesthetic Review Family History of Problems with Anesthesia: No History of Problems with Anesthesia: No NPO: Yes ASA Class: II Final Preanesthetic Review: Meds/Allgs Chart Reviewed, Consent Obtained/Reviewed and Anes Risks/Benef Reviewed Patient Risk: Intermediate Procedure Risk: Intermediate Anesthetic Plan Anesthetic Plan: Spinal and Regional Block Disposition: Inp. Admit - Standard Bed
[2021-09-17] VITALS (15 sets, daily range): BP systolic 129–184; BP diastolic 53–91; PULSE 60–80; RESP 16–18; TEMP 36.1–36.9; O2SAT 95–100
--- NOTE | ~2021-09-17 | XR_ITS ---
EXAMINATION: XR KNEE, LEFT CLINICAL INFORMATION: Left total knee replacement COMPARISON: 04/04/2021 TECHNIQUE: Three views of the left knee. FINDINGS: Since the prior exam, the patient has undergone left total knee replacement. The prosthetic components appear in good position. Air is present in the joint space. Surgical cherie are present. XR/XR knee LT 2V IMPRESSION: Normal postop appearance left knee joint replacement.
[2021-09-17 09:30] LABS: MANUAL DIFF FLAG NO
[2021-09-17 09:34] LABS: Basophils Percent Auto 0.4 % (0-2); Eosinophils Absolute Auto 0.2 X10*3/uL (0.0-0.4); Eosinophils Percent Auto 3.7 % (0-4); Hematocrit 38.4 % (37.0-47.0); Hemoglobin 12.4 g/dl (12.0-16.0); Imm Gran Abs Auto 0.01 X10*3/uL (0.00-0.03); Imm Gran Pct Auto 0.2 % (0.0-0.4); Lymphocytes Absolute Auto 1.3 X10*3/uL (1.2-4.9); Lymphocytes Percent Auto 24.1 % (20-40); Mean Corpuscular HGB Conc 32.3 g/dl (31.0-35.0); Mean Corpuscular Volume 86.7 fL (80.0-98.0); Mean Platelet Volume 9.8 fL (9.4-12.3); Monocytes Absolute Auto 0.4 X10*3/uL (0.1-1.2); Monocytes Percent Auto 7.8 % (2-11); Neutrophils Absolute Auto 3.4 x10*3/uL (2.0-8.3); Neutrophils Percent Auto 63.8 % (45-73); Platelet Count 210 X10*3/uL (160-400); Red Blood Count 4.43 X10*6/uL (4.20-5.50); Red Cell Distribution Width 13.6 % (11.0-16.0); White Blood Count 5.4 X10*3/uL (4.8-10.8)
[2021-09-17 09:47] LABS: COVID-19 Test Negative (Negative)
[2021-09-17] MEDS: Lactated Ringers 1,000 ML 100 ML IVCONT ×2 (10:09→14:34)
--- NOTE | 2021-09-17 10:43 | MHC.SHP ---
Pre-Procedural Eval Section A Date of Service: 09/17/21 The patient is an INPATIENT: No Changes since office visit: Yes Patient answered all questions; No Cold of Flu in the past 2 weeks, No New Medical Problems and No Changes in Medication The History & Physical has been completed within 30 days and I have reviewed it.: Yes Section B Chief Complaint: LT TKA Allergies: Allergies Allergy/AdvReac Type Severity Reaction Status Date / Time Seasonal Allergies Allergy Intermediate sneezing/itchy Verified 09/12/21 12:33 eyes DALY Inhibitors AdvReac Intermediate Cough Verified 09/12/21 12:33 Plan I have reviewed the history and physical and performed a pertinent physical examination on my patient. No changes have occurred unless specified.
--- NOTE | 2021-09-17 13:08 | P.BOP_ITS ---
Brief Operative Note Date of Service: 09/17/21 Pre-op diagnosis: left knee OA Post-op diagnosis: same Procedure: Left TKA Implants: [place] [employer] 2 posterior stabilized femur/ 3 tibia with 16 PS PE insert and 32A Patella. Cemented. Surgeon: Deven Jefferson MD Anesthesia: regional and spinal Was an Civil Transportation Engineer used for this Procedure?: Yes Civil Transportation Engineer: Cony Murdock Estimated blood loss (mL): 150 IV fluids (mL): 1,000 Pathology: other Condition: stable Disposition: PACU
--- NOTE | 2021-09-17 13:22 | P.OP_ITS ---
Operative Note Operative Note Date of Service: 09/17/21 Narrative: Date of Service: 09/17/21 Pre-op diagnosis: left knee OA Post-op diagnosis: same Procedure: Left TKA Implants: Ashby Triathalon 2 posterior stabilized femur/ 3 tibia with 16 PS PE insert and 32A Patella. Cemented. Surgeon: Deven Jefferson MD Anesthesia: regional and spinal Was an Business Continuity Global Director used for this Procedure?: Yes Business Continuity Global Director: Cony Murdock Estimated blood loss (mL): 150 IV fluids (mL): 1,000 Pathology: other Condition: stable Disposition: PACU Procedure in detail: The patient was brought to the operating room and prepped and draped in standard sterile fashion. A time-out was called to identify proper site proper procedure proper surgeon and IV antibiotics were administered. 1 g of IV tranexamic acid was administered. I began by making a midline incision to the retinaculum and performed a medial parapatellar arthrotomy. The patella was translated laterally and the knee was flexed up.The femur was eburnated. I performed a small medial peel and resected the infrapatellar fat pad. Tess's line was then used to drill my intramedullary femoral guide and my distal femur cut of 10 mm was made in 5 degrees of valgus while protecting the soft tissues. I then measured a # 2 femur and placed my cutting guide and made my anterior posterior and chamfer cuts protecting the soft tissues at all times. I then made my box but removing the PCL. Once I was satisfied with my cuts I turned my attention to the tibia. I removed the meniscus medially and laterally and , using an external cutting guide, in line with the tibial crest and the third ray, I made my distal tibial cut in 0 deg slope. I then made a box cut removing the PCL. There was varus pattern loss of the medial tibial plateau bone with sclerosis that required a sizeable lateral cut. An extension block was used to confirm a 13-16 spacer and the appropriate amount of bony resection. I then sized a #3 tibia and once I was satisfied that there was complete tibial coverage I placed my trial and with the trial femur in place took the knee through range of motion. I was satisfied with the extension and flexion as well as the stability at 0, 30 and 90 degrees. There was balance at 0 and 30 deg. I then turned my attention to the patella where I removed 1 cm from the undersurface of the patella and then trialed a 32a patellar button. Again the knee was taken through range of motion I was satisfied with the tracking. I then prepared the tibia. A femoral bone plug was placed and the knee was irrigated copiously. I then cemented the patella, tibia and femur in standard fashion while applying axial compression. I trialed different inserts until I selected a #16 PS insert. The final insert was placed and a 3 minutes iodine soak with local TXA was performed. A Werewolf cautery wand was used to maintain hemostasis over the capsule and meniscal beds, the gutters and peripatellar soft tissues. The knee was then closed with a running Quill suture, a 3 0 Vicryl and cherie on the skin. Patient was then placed in sterile dressing and brought to recovery room in stable condition there were no known complications.
[2021-09-17] MEDS: oxyCODONE HCl Immed Release 5 MG TABLET 10 MG PO (15:59)
[2021-09-17] MEDS: ceFAZolin Sodium/Dextrose,Iso 2 GM/50 ML PIGGYBACK IV (18:11)
[2021-09-17] MEDS: Docusate Sodium 100 MG CAPSULE PO (20:10)
[2021-09-17] MEDS: Celecoxib 200 MG CAPSULE PO (20:10)
[2021-09-17] MEDS: oxyCODONE HCl ER 10 MG TAB.ER.12H PO (20:10)
[2021-09-17] MEDS: Melatonin 3 MG TABLET 6 MG PO (20:11)
[2021-09-17] MEDS: 0.9 % Sodium Chloride Flush 3 ML SYRINGE IVFLUSH (20:11)
[2021-09-18] MEDS: Lactated Ringers 1,000 ML 100 ML IVCONT ×2 (00:23→10:04)
[2021-09-18] MEDS: oxyCODONE HCl Immed Release 5 MG TABLET 10 MG PO ×3 (00:26→16:13)
[2021-09-18] MEDS: Acetaminophen 325 MG TABLET 650 MG PO ×2 (00:27→08:41)
[2021-09-18 03:56] VITALS: BP 136/62; PULSE 85; RESP 17; TEMP 36.7; O2SAT 96
[2021-09-18 06:00] LABS: MANUAL DIFF FLAG NO
[2021-09-18 06:05] LABS: Basophils Percent Auto 0.1 % (0-2); Eosinophils Percent Auto 0.1 % (0-4); Hematocrit 33.7 % (37.0-47.0); Hemoglobin 11.2 g/dl (12.0-16.0); Imm Gran Abs Auto 0.04 X10*3/uL (0.00-0.03); Imm Gran Pct Auto 0.4 % (0.0-0.4); Lymphocytes Absolute Auto 1.1 X10*3/uL (1.2-4.9); Lymphocytes Percent Auto 11.6 % (20-40); Mean Corpuscular HGB Conc 33.2 g/dl (31.0-35.0); Mean Corpuscular Hemoglobin 28.5 pg (27.0-33.0); Mean Corpuscular Volume 85.8 fL (80.0-98.0); Mean Platelet Volume 9.9 fL (9.4-12.3); Monocytes Absolute Auto 0.8 X10*3/uL (0.1-1.2); Monocytes Percent Auto 8.6 % (2-11); Neutrophils Absolute Auto 7.6 x10*3/uL (2.0-8.3); Neutrophils Percent Auto 79.2 % (45-73); Platelet Count 185 X10*3/uL (160-400); Red Blood Count 3.93 X10*6/uL (4.20-5.50); Red Cell Distribution Width 13.3 % (11.0-16.0); White Blood Count 9.5 X10*3/uL (4.8-10.8)
[2021-09-18 06:22] LABS: Anion Gap 12 (12-20); Blood Urea Nitrogen 27 mg/dL (9-16); Calcium 8.6 mg/dL (8.4-10.2); Carbon Dioxide 26 mmol/L (22-29); Chloride 102 mmol/L (96-108); Creatinine Clr Calc Pharmacy 45.6; Estimated Glomerular Filt Rate 50; Glucose Fasting 125 mg/dL (60-99); Potassium 4.4 mmol/L (3.3-5.1); Sodium 136 mmol/L (135-145)
[2021-09-18 07:17] VITALS: BP 117/59; PULSE 75; RESP 18; TEMP 36.4; O2SAT 97
--- NOTE | 2021-09-18 07:39 | PM.PNORT ---
Subjective Subjective Date of Service: 09/18/21 Interval history: POD1 s/p LTKA. Pain is well managed. No overnight events. No additional compaints. Patient is resting in bed comfortably. Physical Exam Vital Signs: Vital Signs: Last Vital Signs Temp 97.5 F 09/18/21 07:17 Pulse 75 09/18/21 07:17 Resp 18 09/18/21 07:17 BP 117/59 L 09/18/21 07:17 Pulse Ox 97 09/18/21 07:17 BMI result Body Mass Index 33.5 Const: General: cooperative, healthy appearing and no acute distress Resp: Effort & Inspection: normal respiratory effort and able to speak in complete sentences Cardio: Rate: regular rate Peripheral pulses: Peripheral pulses 2+ throughout GI: Palpation (GI): Soft to palpation Skin: Lesions: no lesions Rashes: no rashes Extrem: Other: Lt knee aquacel is clean, dry, and intact. NVI. Procedures Date of Service Date of Service: 09/18/21 Progress Note: A&P Assessment and plan (1) S/P total knee arthroplasty: Status: Acute Assessment and Plan: Continue pain mgmnt Begin ASA for dvt ppx begin PT for LTKA Dispo planning-Pending PT eval, pain mgmnt Fall Risk Details Current Medications: Current Medications Acetaminophen (Acetaminophen 325 Mg Tablet) 650 mg PO Q6H PRN PRN Reason: Pain, Mild (Pain Scale 1-3) Last Admin: 09/18/21 00:27 Dose: 650 mg Documented by: Aspirin (Aspirin 325 Mg Tablet) 325 mg PO BID [facility] Atenolol (Atenolol 25 Mg Tablet) 25 mg PO DAILY [facility]; Protocol Celecoxib (Celecoxib 200 Mg Capsule) 200 mg PO BID [facility] Last Admin: 09/17/21 20:10 Dose: 200 mg Documented by: Docusate Sodium (Docusate Sodium 100 Mg Capsule) 100 mg PO BID [facility] Last Admin: 09/17/21 20:10 Dose: 100 mg Documented by: Fluoxetine HCl (Fluoxetine Hcl 10 Mg Capsule) 10 mg PO DAILY [facility] Hydromorphone HCl (Hydromorphone Hcl 1 Mg/Ml Syringe) 0.25 mg IVPUSH Q4H PRN; Protocol PRN Reason: Pain, Severe (Pain Scale 7-10) Lactated Ringer's (Lr) 1,000 mls @ 100 mls/hr IVCONT .Q10H [facility] Last Admin: 09/18/21 00:23 Dose: 100 mls/hr Documented by: Cefazolin Sodium/Dextrose (Ancef) 2 gm in 50 mls @ 100 mls/hr IV POSTOP [facility] Last Infusion: 09/17/21 18:54 Dose: Infused Documented by: Loratadine (Loratadine 10 Mg Tablet) 10 mg PO DAILY PRN PRN Reason: allergies Melatonin (Melatonin 3 Mg Tablet) 6 mg PO BEDTIME PRN PRN Reason: insomnia Last Admin: 09/17/21 20:11 Dose: 6 mg Documented by: Ondansetron HCl (Ondansetron Hcl 4 Mg/2 Ml Vial) 4 mg IVPUSH Q8H PRN PRN Reason: Nausea and Vomiting Oxycodone HCl (Oxycodone Hcl Immed Release 5 Mg Tablet) 10 mg PO Q4H PRN PRN Reason: Pain, Moderate (Pain Scale 4-6 Last Admin: 09/18/21 00:26 Dose: 10 mg Documented by: Oxycodone HCl (Oxycodone Hcl Er 10 Mg Tab.Er.12h) 10 mg PO BID [facility] Last Admin: 09/17/21 20:10 Dose: 10 mg Documented by: Sodium Chloride (0.9 % Sodium Chloride Flush 3 Ml Syringe) 3 ml IVFLUSH QSHIFT [facility] Last Admin: 09/17/21 20:11 Dose: 3 ml Documented by: Time Spent With Patient Time: Total time spent is greater than 50% in coordination of care (as documented) at patient's floor/unit and/or counseling patient: Quality Stroke Does the patient have a stroke diagnosis?: No VTE Prior VTE?: No VTE Risk Level:: Surgical - very high VTE Device Contraindication: N/A - Device Ordered VTE Drug Contraindication: N/A - Med Ordered
[2021-09-18] MEDS: oxyCODONE HCl ER 10 MG TAB.ER.12H PO ×2 (08:40→20:23)
[2021-09-18] MEDS: Docusate Sodium 100 MG CAPSULE PO ×2 (08:41→20:23)
[2021-09-18] MEDS: atenoloL 25 MG TABLET PO (08:41)
[2021-09-18] MEDS: FLUoxetine HCl 10 MG CAPSULE PO (08:41)
[2021-09-18] MEDS: Celecoxib 200 MG CAPSULE PO ×2 (08:41→20:23)
--- NOTE | 2021-09-18 09:23 | P.CONHOSP_ITS ---
History of Present Illness Data of Consult Service Date: 09/18/21 Primary Care Provider: Gerda Mc MD HPI Reason for consult: CAD This is a 76 yo F with a PMH as outlined below who is admitted post L TKA under the orthopedic services. Medical consult request for CAD. Patient is seen and examined in her room. She has just finished her PT evaluation. She states she has some soreness around the knee, but overall is doing well. She denies any CP or sob. Denies any cough or abd pain. Review of Systems Review of Systems: negative except HPI PMFSH Medical History (Updated 09/18/21 @ 09:28 by Aly Reyes MD) Arthritis COVID-19 vaccine series completed History of COVID-19 Hypertension Osteoporosis Family History Mother CAD (coronary artery disease) Surgical History H/O colonoscopy Hx of arthroscopy of knee Hx of breast biopsy Hx of cataract surgery Total knee replacement status Social History Household Members: None Housing: House Are you a primary career information specialist to a significant other at home: No Do you presently have visiting nurse or other home services: Yes Alcohol intake: never Patient Tobacco Use Status: Former Tobacco user Quit Date: age 34 Tobacco use type: Cigarette Years Smoked: 20 Use of substances other than those prescribed or required for medical reasons: No Currently Displaying Signs/Symptoms of Drug Intoxication Withdrawal: No Have you been hit, kicked, punched, or otherwise hurt by someone within the past year? If so, by whom?: No Do you feel safe in your current relationship?: No Current Relationship Is there a partner from a previous relationship who is making you feel unsafe now?: No Are you made to feel afraid or neglected: No Spiritual Healthcare Practices: Sikhism apostolic Moises Are you DNR?: No Advance Directives: No (states would be daughter but no official HCP form) Advance Directives Information Provided: Yes (informational brochure given) Advance Directives on File: No Do you have thoughts of harming others: None Do you have a plan to hurt others: No Plan Recently lost weight without trying: No Eating poorly because of decreased appetite: No Nutrition Risks: Surgical patient >75years Poor oral hygiene: No (upper partial & lower full denture) Meds Allergies Allergy/AdvReac Type Severity Reaction Status Date / Time Seasonal Allergies Allergy Intermediate sneezing/itchy Verified 09/12/21 12:33 eyes DALY Inhibitors AdvReac Intermediate Cough Verified 09/12/21 12:33 Active Medications: Current Medications Acetaminophen (Acetaminophen 325 Mg Tablet) 650 mg PO Q6H PRN PRN Reason: Pain, Mild (Pain Scale 1-3) Last Admin: 09/18/21 08:41 Dose: 650 mg Documented by: Aspirin (Aspirin 325 Mg Tablet) 325 mg PO BID [facility] Atenolol (Atenolol 25 Mg Tablet) 25 mg PO DAILY [facility]; Protocol Last Admin: 09/18/21 08:41 Dose: 25 mg Documented by: Celecoxib (Celecoxib 200 Mg Capsule) 200 mg PO BID [facility] Last Admin: 09/18/21 08:41 Dose: 200 mg Documented by: Docusate Sodium (Docusate Sodium 100 Mg Capsule) 100 mg PO BID [facility] Last Admin: 09/18/21 08:41 Dose: 100 mg Documented by: Fluoxetine HCl (Fluoxetine Hcl 10 Mg Capsule) 10 mg PO DAILY [facility] Last Admin: 09/18/21 08:41 Dose: 10 mg Documented by: Hydromorphone HCl (Hydromorphone Hcl 1 Mg/Ml Syringe) 0.25 mg IVPUSH Q4H PRN; Protocol PRN Reason: Pain, Severe (Pain Scale 7-10) Lactated Ringer's (Lr) 1,000 mls @ 100 mls/hr IVCONT .Q10H [facility] Last Admin: 09/18/21 00:23 Dose: 100 mls/hr Documented by: Cefazolin Sodium/Dextrose (Ancef) 2 gm in 50 mls @ 100 mls/hr IV POSTOP [facility] Last Infusion: 09/17/21 18:54 Dose: Infused Documented by: Loratadine (Loratadine 10 Mg Tablet) 10 mg PO DAILY PRN PRN Reason: allergies Melatonin (Melatonin 3 Mg Tablet) 6 mg PO BEDTIME PRN PRN Reason: insomnia Last Admin: 09/17/21 20:11 Dose: 6 mg Documented by: Ondansetron HCl (Ondansetron Hcl 4 Mg/2 Ml Vial) 4 mg IVPUSH Q8H PRN PRN Reason: Nausea and Vomiting Oxycodone HCl (Oxycodone Hcl Immed Release 5 Mg Tablet) 10 mg PO Q4H PRN PRN Reason: Pain, Moderate (Pain Scale 4-6 Last Admin: 09/18/21 08:40 Dose: 10 mg Documented by: Oxycodone HCl (Oxycodone Hcl Er 10 Mg Tab.Er.12h) 10 mg PO BID [facility] Last Admin: 09/18/21 08:40 Dose: 10 mg Documented by: Sodium Chloride (0.9 % Sodium Chloride Flush 3 Ml Syringe) 3 ml IVFLUSH QSHIFT [facility] Last Admin: 09/18/21 08:41 Dose: Not Given Documented by: Home Medications Medication Instructions Recorded Confirmed Last Taken Type acetaminophen 500 mg tablet 1,000 mg PO Q6H PRN 06/03/21 06/03/21 Unknown History atenolol 25 mg tablet 1 tab PO DAILY 06/03/21 06/03/21 09/17/21 History fluoxetine 10 mg capsule 1 cap PO DAILY 06/03/21 06/03/21 09/17/21 History hydrochlorothiazide 25 mg tablet 1 tab PO DAILY 06/03/21 06/03/21 Unknown History loratadine 10 mg tablet 1 tab PO DAILY PRN 06/03/21 06/03/21 Unknown History melatonin 5 mg tablet 1 tab PO BEDTIME PRN 06/03/21 06/03/21 Unknown History naproxen 250 mg tablet 1 tab PO BID 06/03/21 06/03/21 Unknown History Physical Exam Vital Signs and Narrative: Vital Signs: Last Vital Signs Temp 97.5 F 09/18/21 07:17 Pulse 75 09/18/21 07:17 Resp 18 09/18/21 07:17 BP 117/59 L 09/18/21 07:17 Pulse Ox 97 09/18/21 07:17 BMI result Body Mass Index 33.5 Const: Other: Constitutional - Awake and Alert, No apparent distress Eyes - PERRLA, EOMI Cardiovascular - S1S2, RRR, No edema Respiratory - Normal lung expansion, Normal respiratory effort, No respiratory distress, CTA bilaterally Gastrointestinal - NT / ND; +BS; No rebound or guarding - No CVA tenderness Extremities - no calf tenderness bilaterally, no swelling Musculoskeletal - Normal inspection, normal ROM Skin - Warm/Dry Neurological - Alert & oriented x3, No focal deficit Psychological - Appropriate affect Results Labs CBC and Chem 7: 09/18/21 05:42 09/18/21 05:42 Labs: Laboratory Results - last 24 hr 09/17/21 09/17/21 09/18/21 09:08 09:27 05:42 MCV 86.7 85.8 MCH 28.0 28.5 MCHC 32.3 33.2 RDW 13.6 13.3 Plt Count 210 185 MPV 9.8 9.9 Immature Gran % (Auto) 0.2 0.4 Neut % (Auto) 63.8 79.2 H Lymph % (Auto) 24.1 11.6 L [place] % (Auto) 7.8 8.6 Eos % (Auto) 3.7 0.1 Baso % (Auto) 0.4 0.1 Lymph # (Auto) 1.3 1.1 L [place] # (Auto) 0.4 0.8 Eos # (Auto) 0.2 0.0 Baso # (Auto) 0.0 0.0 Abs Immat Gran (auto) 0.01 0.04 H Absolute Neuts (auto) 3.4 7.6 Absolute Nucleated RBC 0.000 0.000 Nucleated RBC % (auto) 0.0 0.0 Anion Gap Estim Creat Clear Calc Estimated GFR Fasting Glucose Calcium COVID-19 ([facility]) Negative COVID-19 Clin Com See Note 09/18/21 05:42 MCV MCH MCHC RDW Plt Count MPV Immature Gran % (Auto) Neut % (Auto) Lymph % (Auto) [place] % (Auto) Eos % (Auto) Baso % (Auto) Lymph # (Auto) [place] # (Auto) Eos # (Auto) Baso # (Auto) Abs Immat Gran (auto) Absolute Neuts (auto) Absolute Nucleated RBC Nucleated RBC % (auto) Anion Gap 12 Estim Creat Clear Calc 45.6 Estimated GFR 50 Fasting Glucose 125 H Calcium 8.6 D COVID-19 ([facility]) COVID-19 Clin Com Imaging Radiologist's Impressions: Impressions Knee X-Ray 09/17/21 14:24 IMPRESSION: Normal postop appearance left knee joint replacement. Assessment and Plan (1) Hypertension: Status: Acute Plan This is a 76 yo F with a PMH of HTN, OA who is admitted s/p L TKA. Medical consult request for history of CAD. (Patient denies history of CAD). 1. HTN continue atenolol, resume hctz upon d/c 2. mood continue baseline meds 3. L TKA - POD#1 mgmt per ortho Medically stable at this time. Will sign off. Please reconsult or tigerconnect.
--- NOTE | 2021-09-18 09:33 | MHC.CM.PN ---
CM met with Patient at bedside and addressed IMM with her, providing her with the original and placing a copy on the chart. Patient lives alone in an apartment and uses a cane and receives [employer]GER 3 hours/week.Patient's goal is for STR at [facility] and CM has initiated and will follow for dc planning. Patient has received Moderna vax X3 and PCP is Dr. Gerda Mc.
--- NOTE | 2021-09-18 10:17 | HO.POSTANES ---
Post Anesthesia Evaluation Post Anesthesia Evaluation Vital Signs: Vital Signs Temp Pulse Resp BP Pulse Ox 09/18/21 07:17 97.5 F 75 18 117/59 L 97 09/18/21 03:56 98.1 F 85 17 136/62 96 09/17/21 23:35 97.6 F 80 18 133/61 95 Anesthesia: Spinal and Nerve Block Mental Status: Awake Pain Control: Satisfactory Nausea/Vomiting: None Hydration: Adequate Anesthesia-Related Issues: No Anes. Related Issues
[2021-09-18 11:45] VITALS: BP 118/55; PULSE 68; RESP 18; TEMP 36.1; O2SAT 97
[2021-09-18] MEDS: Aspirin 325 MG TABLET PO ×2 (11:45→20:22)
[2021-09-18 15:10] VITALS: BP 123/57; PULSE 71; RESP 18; TEMP 36.3; O2SAT 95
[2021-09-18] MEDS: 0.9 % Sodium Chloride Flush 3 ML SYRINGE IVFLUSH ×2 (16:14→20:23)
[2021-09-18 19:11] VITALS: BP 108/53; PULSE 77; RESP 18; TEMP 36.6; O2SAT 95
[2021-09-18 23:38] VITALS: BP 113/53; PULSE 78; RESP 18; TEMP 36.2; O2SAT 95
[2021-09-19 03:21] VITALS: BP 140/65; PULSE 73; RESP 17; TEMP 36.4; O2SAT 96
[2021-09-19] MEDS: Lactated Ringers 1,000 ML 100 ML IVCONT (03:31)
[2021-09-19] MEDS: HYDROmorphone HCl 1 MG/ML SYRINGE 0.25 MG IVPUSH ×2 (03:35→18:47)
[2021-09-19 06:06] LABS: MANUAL DIFF FLAG NO
[2021-09-19 06:16] LABS: Basophils Percent Auto 0.2 % (0-2); Eosinophils Absolute Auto 0.2 X10*3/uL (0.0-0.4); Eosinophils Percent Auto 2.1 % (0-4); Hematocrit 31.1 % (37.0-47.0); Hemoglobin 10.1 g/dl (12.0-16.0); Imm Gran Abs Auto 0.05 X10*3/uL (0.00-0.03); Imm Gran Pct Auto 0.6 % (0.0-0.4); Lymphocytes Absolute Auto 1.4 X10*3/uL (1.2-4.9); Lymphocytes Percent Auto 15.9 % (20-40); Mean Corpuscular HGB Conc 32.5 g/dl (31.0-35.0); Mean Corpuscular Hemoglobin 28.1 pg (27.0-33.0); Mean Corpuscular Volume 86.4 fL (80.0-98.0); Mean Platelet Volume 10.2 fL (9.4-12.3); Monocytes Absolute Auto 0.8 X10*3/uL (0.1-1.2); Monocytes Percent Auto 9.9 % (2-11); Neutrophils Absolute Auto 6.1 x10*3/uL (2.0-8.3); Neutrophils Percent Auto 71.3 % (45-73); Platelet Count 161 X10*3/uL (160-400); Red Cell Distribution Width 13.7 % (11.0-16.0); White Blood Count 8.5 X10*3/uL (4.8-10.8)
[2021-09-19 06:29] LABS: Anion Gap 13 (12-20); Blood Urea Nitrogen 28 mg/dL (9-16); Calcium 8.2 mg/dL (8.4-10.2); Carbon Dioxide 23 mmol/L (22-29); Chloride 104 mmol/L (96-108); Creatinine Clr Calc Pharmacy 46.5; Estimated Glomerular Filt Rate 51; Glucose Fasting 108 mg/dL (60-99); Potassium 4.2 mmol/L (3.3-5.1); Sodium 136 mmol/L (135-145)
[2021-09-19 07:20] VITALS: BP 133/65; PULSE 79; RESP 17; TEMP 36.4; O2SAT 96
[2021-09-19 08:33] VITALS: BP 121/57; PULSE 82
[2021-09-19] MEDS: Celecoxib 200 MG CAPSULE PO (08:42)
[2021-09-19] MEDS: Docusate Sodium 100 MG CAPSULE PO (08:42)
[2021-09-19] MEDS: Aspirin 325 MG TABLET PO (08:42)
[2021-09-19] MEDS: FLUoxetine HCl 10 MG CAPSULE PO (08:42)
[2021-09-19] MEDS: atenoloL 25 MG TABLET PO (08:43)
[2021-09-19] MEDS: oxyCODONE HCl ER 10 MG TAB.ER.12H PO (08:43)
[2021-09-19] MEDS: oxyCODONE HCl Immed Release 5 MG TABLET 10 MG PO (08:43)
--- NOTE | 2021-09-19 08:59 | P.DS_ITS ---
DS: Providers Provider Date of Service: 09/19/21 Primary care physician: Gerda Mc MD Consults: 09/17/21 16:53 Consult to Hospitalist Routine Consulting Provider: Hospitalist Reason For Exam: CAD DS: Diagnosis Discharge Diagnosis (1) S/P total knee arthroplasty: Status: Acute DS: Summary Hospital Course Hospital Course: The patient underwent a successful left total knee arthroplasty, was transferred to PACU and then to the floor to recover. During their stay, their vitals were stable, afebrile at 97.5. Labs were unremarkable, H/H 10.1/31.1. POD 1 she was started on ASA for DVT ppx, they also received PT services twice a day. Prior to discharge, their dressing was change, incision clean dry and intact, new Aquacel dressing applied and the plan was to be discharged to [facility] Post op appt 10/03/21 2:30 [facility] Orthopedic Surgeons Time Spent with Patient Time attestation: Total time spent providing and/or coordinating discharge services: Discharge coordination time: Less than 30 minutes Quality: Safe Use of Opioids Does Pt have an Active Cancer Diagnosis on the Problem List?: No Quality: Stroke Does the patient have a stroke diagnosis?: No Physical Exam Vital Signs: Vital Signs: Last Vital Signs Temp 97.5 F 09/19/21 07:20 Pulse 82 09/19/21 08:33 Resp 17 09/19/21 07:20 BP 121/57 L 09/19/21 08:33 Pulse Ox 96 09/19/21 07:20 BMI result Body Mass Index 33.5 Const: General: cooperative, healthy appearing and no acute distress Resp: Effort & Inspection: normal respiratory effort and able to speak in complete sentences Cardio: Rate: regular rate Peripheral pulses: Peripheral pulses 2+ thro ughout GI: Palpation (GI): Soft to palpation Skin: General skin exam: no rashes or lesions noted Extrem: Other: incision clean dry and intact. Ute intact. No erythema or joint effusion. Calf supple nontender. Neurovascularly intact. DS: Data Data Completed and Pending Pending studies at discharge: Pending at discharge 09/17/21 12:44 Surgical [PTH] Routine Labs on day of discharge: Laboratory Results - last 24 hr 09/19/21 09/19/21 05:58 05:58 WBC 8.5 RBC 3.60 L Hgb 10.1 L Hct 31.1 L MCV 86.4 MCH 28.1 MCHC 32.5 RDW 13.7 Plt Count 161 MPV 10.2 Immature Gran % (Auto) 0.6 H Neut % (Auto) 71.3 Lymph % (Auto) 15.9 L [place] % (Auto) 9.9 Eos % (Auto) 2.1 Baso % (Auto) 0.2 Lymph # (Auto) 1.4 [place] # (Auto) 0.8 Eos # (Auto) 0.2 Baso # (Auto) 0.0 Abs Immat Gran (auto) 0.05 H Absolute Neuts (auto) 6.1 Absolute Nucleated RBC 0.000 Nucleated RBC % (auto) 0.0 Sodium 136 Potassium 4.2 Chloride 104 Carbon Dioxide 23 Anion Gap 13 BUN 28 H Creatinine 1.05 Estim Creat Clear Calc 46.5 Estimated GFR 51 Fasting Glucose 108 H Calcium 8.2 L Discharge Plan Discharge Patient Disposition: er SNF Referrals: Cony Murdock PA-C [Physician Exchange Trouble Shooter] - 2 Weeks (10/03/21 2:30 [facility] Orthopedic Surgeons Cony Murdock PA-C) Discharge Medications: New oxycodone 5 mg tablet 5 mg PO Q4H PRN (Reason: Pain, Moderate (Pain Scale 4-6) 7 Days Qty: 42 0RF acetaminophen 325 mg Tablet 650 mg PO Q6H PRN (Reason: Pain, Mild (Pain Scale 1-3)) 30 Days Qty: 240 0RF aspirin 325 mg Tablet 325 mg PO BID 42 Days Qty: 84 0RF Continued atenolol 25 mg tablet 1 tab PO DAILY 0RF naproxen 250 mg tablet 1 tab PO BID 0RF acetaminophen 500 mg Tablet 1,000 mg PO Q6H PRN (Reason: Pain) 0RF fluoxetine 10 mg capsule 1 cap PO DAILY 0RF hydrochlorothiazide 25 mg tablet 1 tab PO DAILY 0RF loratadine 10 mg tablet 1 tab PO DAILY PRN (Reason: allergies) 0RF melatonin 5 mg tablet 1 tab PO BEDTIME PRN (Reason: insomnia) 0RF Discharge Orders: Discharge Order (Routine); Ordered 09/19/21 Ordered By: Cony Murdock Activity Restrictions/Additional Instructions: Physical Therapy for Total knee arthroplasty: WBAT, gait training, ROM 0-12, quad strength * Limit stair climbing * No showering, no tub bath-keep dressing clean, dry and intact * No driving x6 weeks * Continue Aspirin twice a day x 6 weeks * Follow up with [facility] Orthopedics in 2 weeks: * --you will also have your first out patient PT will on the day of your post op appt-so please plan on being in the office that day for an extended period of time.
[2021-09-19 10:49] VITALS: BP 114/53; PULSE 74; RESP 16; TEMP 36.2; O2SAT 95
[2021-09-19 12:47] LABS: COVID-19 Test Negative (Negative)
[2021-09-19 16:02] VITALS: BP 114/53; PULSE 74; O2SAT 95
--- NOTE | 2021-09-19 16:18 | MHC.CM.PN ---
NURSE BALL ENDER NOTE DISCHARGE PLAN TO THE [facility] FOR STR POST TKA TO BE TRANSPORTED VIA [facility] AT 4PM MEDICARE IMMM YUPDATED AND NEW HCP COMPLETED WITH W [facility] STUART INTERPERTER SPOKE WITH PATIENT AND HER DAUGHTER BOTH FIRST CHOICE WAS THE [facility] TO BE TRANSFERRED [facility] PATIENT AND DTR INFORMED OF ACCEPTANCE AND ROUT OF TRANSPORTATION PATIENT COMPLETED NEW HCP AND ORIGINAL AND COPIES GIVEN TO PATIENT ALL DICHARGE PAPERWORK COMPLETERD
[2021-09-19] MEDS: Acetaminophen 325 MG TABLET 650 MG PO (17:26)
== END 2021-09-19 18:45 | disposition skilled nursing facility (03) ==
LOC: HO.SSS 08:59 → HO.S3 09-18 10:10
PROVIDERS: Physician Assistant; PCP Family Medicine; Visit Provider Orthopaedic Surgery
PROC: (CPT 27447; principal; 2021-09-17 12:30)
DX: M17.12 Unilateral primary osteoarthritis, left knee (principal); I10 Essential (primary) hypertension; M81.0 Age-related osteoporosis without current pathological fracture; J30.2 Other seasonal allergic rhinitis; Z79.899 Other long term (current) drug therapy; Z88.8 Allergy status to other drugs, medicaments and biological substances; Z96.651 Presence of right artificial knee joint; Z87.891 Personal history of nicotine dependence; Z79.1 Long term (current) use of non-steroidal anti-inflammatories (NSAID); Z86.16 Personal history of COVID-19; Z98.890 Other specified postprocedural states
CPT/HCPCS: 27447; 36415; 73560; 80048; 80051; 82565; 84520; 85025; 85027; 86850; 86900; 86901; 87635; 87640; 87641; 88305; 88311; 93005; 97110; 97116; 97162; 97530; C1713; C1776; J0690; J1100; J1170; J2250

== ENCOUNTER → 2021-10-03 14:00 | Outpatient (BNVA) | payer MEDICARE, MEDICAID, SELFPAY | PROVIDERS: PCP Family Medicine; Visit Provider Physician Assistant | DX: Z47.1 Aftercare following joint replacement surgery (principal); Z96.652 Presence of left artificial knee joint | CPT/HCPCS: 99212 ==

== ENCOUNTER → 2021-10-31 11:50 | Outpatient (BNVA) | payer MEDICARE, MEDICAID, SELFPAY | PROVIDERS: PCP Family Medicine; Visit Provider Physician Assistant | DX: Z47.1 Aftercare following joint replacement surgery (principal); Z96.652 Presence of left artificial knee joint | CPT/HCPCS: 99212 ==

== ENCOUNTER 2021-11-12 14:00 | Outpatient (RCR) | payer MEDICARE, MEDICAID, SELFPAY ==
--- NOTE | 2021-10-04 08:11 | MHC.PT.EP ---
[facility] [place] Office [place] Office [place] Office [address] Glenn Villa [address] [phone] F: [phone] F: [phone] F: [phone] F: [phone] Physical Therapy Plan of Care Date of Evaluation: Date of Surgery: 09/17/21 Diagnosis: L TKA on 09/17/21 Assessment: pt presents to physical therapy evaluation at orthopedic office for first post-operative follow-up after L TKA on 09/17/21. pt presents to physical therapy with pain, decreased range of motion, decreased strength, impaired functional mobility, impaired postural awareness, and gait deviations. pt is a good candidate for skilled PT due to age, potential remediation of impairments, typical disease/condition progression and prognosis, comorbidities, and motivation. pt would benefit from tailored strengthening and stretching exercise program, functional training, gait training, postural re-training, neuromuscular re-education, modalities as needed for pain, equipment safety demonstration. Frequency and Duration: The patient will be seen 2x/wk for 8 wks Short Term Goals: Pt will be I w/ HEP and symptom self-management to promote self-management of post-operative status. Pt will improve L knee extension to 0 degrees to normalize heel strike at initial contact w/ involved LE to reduce impairments w/ gait using LRAD. Certified Corporate Travel Executive Goals: Pt will report a statistically significant improvement in self-reported outcome measure, LEFI, to promote return to PLOF. Pt will ascend/descend 10 stairs mod I w/ LRAD to promote access to primary living spaces. Treatment Plan: Modalities to reduce pain, spasms and effusion. Manual therapy to restore motion and function. Therapeutic exercise to improve strength and flexibility. Neuromuscular re-education for posture and balance. Therapeutic activities to return to functional activities of daily living. Electronically signed by: Sharon Regan PT, DPT Please sign and return to therapist. Thank you for your referral.
--- NOTE | 2021-11-12 16:06 | MHC.PT.DC ---
[facility] [place] Office [place] Office [place] Office [address] Glenn Villa [address] [phone] F: [phone] F: [phone] F: [phone] F: [phone] Physical Therapy Discharge Report Diagnosis: L TKA on 09/17/21 Date of Surgery: 09/17/21 Date of Evaluation: 10/03/21 Date of Discharge: 11/12/21 Treatments to Date: 6 Cancellations to Date: 0 No Shows to Date: 2 Discharge Status: Achieved Goals Improved Function Independent with HEP Patient Elected to Stop Discharge Summary: Pt has made good progress with skilled PT. She is able to achieve 120 deg L knee flexion. L LE strength WFL. She scored a 50/80 on LEFI outcome measure. She is ambulating I without AD and is able to navigate 1 full flight of stairs I with reciprocal pattern. Pt is I and compliant with HEP. Pt is requesting to self D/C at this time as she reports she is at her functional baseline. Pt is being D/C from PT at this time. Provided pt with printed, updated copy of HEP and pt verbalized understanding. Pt reports no further questions or concerns for PT at this time. Electronically signed by: Era Kaiser, PT, DPT Please sign and return to therapist. Thank you for your referral.
== END 2021-11-12 16:07 | disposition home or self-care (01) ==
LOC: HO.PT 14:00
PROVIDERS: Visit Provider Physician Assistant
DX: Z96.652 Presence of left artificial knee joint (principal)
CPT/HCPCS: 97110; 97162; 97530

== ENCOUNTER 2022-01-06 08:05 | Outpatient (REF) | payer MEDICARE, MEDICAID, SELFPAY ==
--- NOTE | ~2022-01-06 | XR_ITS ---
EXAMINATION: XR KNEE, LEFT XR KNEE, STANDING, BILATERAL CLINICAL INFORMATION: Pain left knee. COMPARISON: None TECHNIQUE: AP bilateral knee 1 view and left knee 2 views. FINDINGS: BILATERAL KNEE: There is bilateral knee prosthesis in satisfactory alignment. No periprosthetic loosening seen. There is soft tissue calcification along the medial femoral condyle likely old avulsion injury. LEFT KNEE: There is a total left knee prosthesis with prosthetic components in satisfactory alignment. There is mild soft tissue swelling. No abnormal joint effusion seen. XR/XR knee LT 2V IMPRESSION: Bilateral total knee prosthesis in satisfactory alignment. 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
--- NOTE | ~2022-01-06 | XR_ITS ---
EXAMINATION: XR KNEE, LEFT XR KNEE, STANDING, BILATERAL CLINICAL INFORMATION: Pain left knee. COMPARISON: None TECHNIQUE: AP bilateral knee 1 view and left knee 2 views. FINDINGS: BILATERAL KNEE: There is bilateral knee prosthesis in satisfactory alignment. No periprosthetic loosening seen. There is soft tissue calcification along the medial femoral condyle likely old avulsion injury. LEFT KNEE: There is a total left knee prosthesis with prosthetic components in satisfactory alignment. There is mild soft tissue swelling. No abnormal joint effusion seen. XR/XR knee standing BI IMPRESSION: Bilateral total knee prosthesis in satisfactory alignment. 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
== END 2022-01-06 08:06 | disposition home or self-care (01) ==
LOC: HO.HOSX 08:05
PROVIDERS: Visit Provider Orthopaedic Surgery
DX: M25.562 Pain in left knee (principal)
CPT/HCPCS: 73560; 73565

== ENCOUNTER 2022-02-26 10:14 | Outpatient (REF) | payer MEDICARE, MEDICAID, SELFPAY ==
--- NOTE | ~2022-02-26 | MM_ITS ---
EXAMINATION: MM SCREENING DIGITAL BREAST TOMOSYNTHESIS, BILATERAL CLINICAL INFORMATION: Screening. Asymptomatic. The lifetime risk of breast cancer based on the Tyrer-Cuzick Model is 2%. COMPARISON: Mammography: 02/25/2021, 01/18/2020, 05/08/2016 TECHNIQUE: Digital breast tomosynthesis is performed in both the craniocaudal and mediolateral oblique views along with computer-aided detection (CAD). Synthesized 2D images are generated from the tomosynthesis. FINDINGS: There are scattered areas of fibroglandular density (ACR BI-RADS breast composition Category b). There are no significant masses, abnormal calcifications, or other abnormalities. Parenchymal pattern is similar to prior studies. There is no developing density or architectural abnormality. The axilla and skin contours are unremarkable. No significant changes. MM/MM tomosynthesis screening BI IMPRESSION: No mammographic evidence of malignancy. ASSESSMENT: BI-RADS 1: Negative RECOMMENDATION: Routine annual mammography screening. This patient's information was entered into a reminder system with a target due date for their next mammogram.
== END 2022-02-26 10:15 | disposition home or self-care (01) ==
LOC: HO.MAMMO 10:14
PROVIDERS: PCP Family Medicine; Visit Provider Family Medicine
DX: Z12.31 Encounter for screening mammogram for malignant neoplasm of breast (principal)
CPT/HCPCS: 77063; 77067

== ENCOUNTER 2022-08-28 12:00 | Outpatient (RCR) | payer MEDICARE, MEDICAID, SELFPAY | END 2022-08-28 13:24 | disposition home or self-care (01) | LOC: HO.PT 12:00 | PROVIDERS: PCP Family Medicine; Visit Provider Family Medicine | DX: M25.512 Pain in left shoulder (principal) | CPT/HCPCS: 97110; 97140; 97162 ==

== ENCOUNTER 2023-03-04 10:03 | Outpatient (REF) | payer MEDICARE, MEDICAID, SELFPAY | END 2023-03-04 10:04 | disposition home or self-care (01) | LOC: HO.MAMMO 10:03 | PROVIDERS: PCP Family Medicine; Visit Provider Family Medicine | DX: Z12.31 Encounter for screening mammogram for malignant neoplasm of breast (principal) | CPT/HCPCS: 77063; 77067 ==

== ENCOUNTER → 2023-03-04 10:45 | Outpatient (BNV) | payer MEDICARE, MEDICAID, SELFPAY | PROVIDERS: PCP Family Medicine; Visit Provider Radiology Diagnostic Radiology | DX: Z12.31 Encounter for screening mammogram for malignant neoplasm of breast (principal) | CPT/HCPCS: 77063; 77067 ==

== ENCOUNTER 2023-06-12 09:34 | Outpatient (REF) | payer MEDICARE, MEDICAID, SELFPAY | END 2023-06-12 09:35 | disposition home or self-care (01) | LOC: HO.LAB 09:34 | PROVIDERS: PCP Family Medicine; Visit Provider Family Medicine | DX: I10 Essential (primary) hypertension (principal); R53.83 Other fatigue; W19.XXXS Unspecified fall, sequela; Z78.0 Asymptomatic menopausal state | CPT/HCPCS: 36415; 80048; 80061; 80076; 82306; 83735; 84443; 85025 ==

== ENCOUNTER 2024-03-09 10:01 | Outpatient (REF) | payer MEDICARE, MEDICAID, SELFPAY ==
--- NOTE | ~2024-03-09 | MM_ITS ---
EXAMINATION: MM SCREENING DIGITAL BREAST TOMOSYNTHESIS, BILATERAL CLINICAL INFORMATION: Screening. Asymptomatic. COMPARISON: Mammography: Comparison is made with available priors TECHNIQUE: Digital breast mammography with tomosynthesis is performed in both the craniocaudal and mediolateral oblique views along with computer-aided detection (CAD). FINDINGS: There are scattered areas of fibroglandular density (ACR BI-RADS breast composition Category b). There are no significant masses, abnormal calcifications, or other abnormalities. MM/MM tomosynthesis screening BI IMPRESSION: No mammographic evidence of malignancy. ASSESSMENT: BI-RADS BI-RADS 1 - Negative RECOMMENDATION: Routine annual mammography screening. 1 year F/U This examination should not preclude the clinical evaluation of a suspicious palpable abnormality. This patient's information was entered into a reminder system with a target due date for their next mammogram. Electronically signed by: Neena Young DO 03/21/2024 12:42 PM EDT
== END 2024-03-09 10:02 | disposition home or self-care (01) ==
LOC: HO.MAMMO 10:01
PROVIDERS: Visit Provider Family Medicine
DX: Z12.31 Encounter for screening mammogram for malignant neoplasm of breast (principal)
CPT/HCPCS: 77063; 77067

== ENCOUNTER → 2024-03-09 10:30 | Outpatient (BNV) | payer MEDICARE, MEDICAID, SELFPAY | PROVIDERS: Visit Provider Internal Medicine | DX: Z12.31 Encounter for screening mammogram for malignant neoplasm of breast (principal) | CPT/HCPCS: 77063; 77067 ==

== ENCOUNTER 2024-03-16 15:55 | Emergency (ER) | payer MEDICARE, MEDICAID, SELFPAY ==
[2024-03-16] VITALS (8 sets, daily range): BP systolic 163–225; BP diastolic 62–95; PULSE 67–79; RESP 15–18; TEMP 36.4–37; O2SAT 98–100; BMI 32.2
--- NOTE | ~2024-03-16 | CT_ITS ---
EXAMINATION: CT HEAD WITHOUT CONTRAST CLINICAL INFORMATION: Hypertensive COMPARISON: CT head on 01/19/2021. TECHNIQUE: Contiguous axial imaging was performed from the skull base to vertex without intravenous administration of contrast. This CT examination was performed using dose optimization techniques as appropriate, variously including the following: *Automated exposure control *Adjustment of mA and/or kV according to patient size (this includes techniques or standardized protocols for targeted exams where dose is matched to indication/reason for exam; i.e. extremities or head) *Use of iterative reconstruction technique DLP: 567 mGy-cm FINDINGS: No acute intracranial hemorrhage or infarct. The alexander-white matter differentiation is preserved. No midline shift or hydrocephalus. No acute extra-axial fluid collections. The osseous structures are unremarkable. No orbital pathology. The paranasal sinuses and mastoid air cells are clear. Atherosclerotic calcifications of the bilateral carotid siphons. CT/CT head/brain wo IV con IMPRESSION: No acute intracranial hemorrhage or infarct. Electronically signed by: Barrie Epstein MD 03/16/2024 06:57 PM EDT
--- NOTE | 2024-03-16 16:04 | ECG_ITS ---
Test Reason : HYPERTENSION Blood Pressure : / mmHG Vent. Rate : 064 BPM Atrial Rate : 064 BPM P-R Int : 184 ms QRS Dur : 082 ms QT Int : 414 ms P-R-T Axes : 036 010 023 degrees QTc Int : 427 ms Normal sinus rhythm Minimal voltage criteria for LVH, may be normal variant ( R in aVL ) Borderline ECG When compared with ECG of 03-JUN-2021 12:46, No significant change was found Referred By: Dejna Shrestha Electronically Signed By:MICHAEL MACKEY MD
--- NOTE | 2024-03-16 16:05 | ED.GENADULT ---
HPI - General Adult General Chief complaint: General Medical Stated complaint: sent by [facility], hypertension Time Seen by Provider: 03/16/24 16:23 History of Present Illness ED Provider: Art OLSEN narrative: 78-year-old female with past medical history of hypertension presenting for hypertension. Patient was seen at an outside clinic today where she presented for medication refill. There she was found to be hypertensive and she was sent to this emergency department. Patient has no physical complaints denying chest pain, shortness of breath, head pain, abdominal pain, diaphoresis. Patient states that she did wake up today with blood in her right eye however she had no other symptoms and denies any ocular trauma. Patient states that she currently feels at baseline and she denies medication noncompliance Related Data Home Medications ?Medication ?Instructions ?Recorded ?Confirmed acetaminophen 500 mg tablet 1,000 mg PO Q6H PRN Pain 06/03/21 06/03/21 atenolol 25 mg tablet 1 tab PO DAILY 06/03/21 06/03/21 fluoxetine 10 mg capsule 1 cap PO DAILY 06/03/21 06/03/21 hydrochlorothiazide 25 mg tablet 1 tab PO DAILY blood pressure 06/03/21 06/03/21 loratadine 10 mg tablet 1 tab PO DAILY PRN allergies 06/03/21 06/03/21 melatonin 5 mg tablet 1 tab PO BEDTIME PRN insomnia 06/03/21 06/03/21 naproxen 250 mg tablet 1 tab PO BID 06/03/21 06/03/21 Previous Rx's ?Medication ?Instructions ?Recorded acetaminophen 325 mg tablet 650 mg (2 x 325 mg) PO Q6H PRN 09/19/21 Pain, Mild (Pain Scale 1-3) 30 days #240 tabs aspirin 325 mg tablet 325 mg PO BID 42 days #84 tabs 09/19/21 oxycodone 5 mg tablet 5 mg PO Q4H PRN Pain, Moderate 09/19/21 (Pain Scale 4-6 7 days #42 tabs amoxicillin 500 mg tablet 2,000 mg (4 x 500 mg) PO ONCE #4 09/19/22 tabs Allergies Allergy/AdvReac Type Severity Reaction Status Date / Time Seasonal Allergies Allergy Intermediate sneezing/itchy Verified 03/16/24 16:06 eyes DALY Inhibitors AdvReac Intermediate Cough Verified 03/16/24 16:06 Review of Systems Review of Systems: Patient has no complaints however she does endorse blood in her right eye She denies head pain, neck pain, chest pain, shortness of breath, abdominal pain, nausea, vomiting, diarrhea, urinary, fevers, chills [facility] Past Medical History Attestation statement: The following information was validated with the patient. [facility] Narrative: Past medical history of hypertension Source: old records reviewed Medical History Arthritis COVID-19 vaccine series completed History of COVID-19 Hypertension Osteoporosis Surgical History H/O colonoscopy Hx of arthroscopy of knee Hx of breast biopsy Hx of cataract surgery Total knee replacement status Family History Family History Mother CAD (coronary artery disease) Social History Social History Household Members: None Housing: House Are you a primary dog daycare provider to a significant other at home: No Do you presently have visiting nurse or other home services: Yes Alcohol intake: never Patient Tobacco Use Status: Former Tobacco user Tobacco use type: Cigarette Years Smoked: 20 Smoked in Last 30 Days: No Use of substances other than those prescribed or required for medical reasons: No Advance Directives: Yes Advance Directives on File: Yes Advance Directives Date on File: 09/20/21 service: No Current occupational status: retired Physical Exam ED Vital Signs: Vital Signs - 24 hr 03/16/24 15:58 03/16/24 16:27 03/16/24 18:11 Temperature 98.6 F 97.5 F Pulse Rate 71 71 67 Respiratory Rate 16 18 16 Blood Pressure 225/95 H 221/89 H 194/77 H Pulse Oximetry 100 98 99 Oxygen Delivery Method Room Air Room Air Room Air 03/16/24 20:02 03/16/24 20:22 03/16/24 20:40 Temperature 98.1 F Pulse Rate 73 Respiratory Rate 15 Blood Pressure 194/70 H 200/89 H 184/76 H Pulse Oximetry 99 Oxygen Delivery Method Room Air 03/16/24 20:59 03/16/24 21:03 Temperature 98.2 F Pulse Rate 79 Respiratory Rate 18 Blood Pressure 163/62 H 163/62 H Pulse Oximetry 98 Oxygen Delivery Method Room Air BMI result Body Mass Index 32.2 Head normocephalic atraumatic; visual acuity intact; right eye medial subconjunctival hemorrhage; no focal neurologic deficits appreciated; lungs clear to auscultation bilaterally; normal S1-S2 regular rate and rhythm; abdomen is soft nontender nondistended; mild bilateral lower extremity edema appreciated Course Course Course Narrative: RME: Done by ZARA Shrestha. 78-year-old female presents to ED for asymptomatic hypertension. Patient has history of high blood pressure. Patient was sent from urgent Care for systolics 180/190. Patient's systolic blood pressure in the ED to 225. Patient is asymptomatic. Patient states mild left shoulder pain. NIH score is 0. Labs head CT EKG ordered. Patient to be brought back to the ED. Spoke with Charge nurse for patient to come to the ED. Medications Administered Discontinued Medications Generic Name Dose Route Start Last Admin Trade Name Freq PRN Reason Stop Dose Admin Hydralazine HCl 2.5 mg 03/16/24 20:15 03/16/24 20:22 Hydralazine Hcl 20 Mg/Ml Vial IVPUSH 03/16/24 20:16 2.5 mg ONCE ONE Administration Protocol Hydralazine HCl 5 mg 03/16/24 20:28 03/16/24 20:40 Hydralazine Hcl 20 Mg/Ml Vial IVPUSH 03/16/24 20:29 5 mg ONCE ONE Administration Protocol Hydrochlorothiazide 25 mg 03/16/24 17:29 03/16/24 18:10 Hydrochlorothiazide 25 Mg Tablet PO 03/16/24 17:30 25 mg ONCE ONE Administration Protocol Medical Decision Making Medical Decision Making [facility] Narrative: This is a 78-year-old female presenting with hypertension. Patient is asymptomatic and I suspect that this is benign hypertension. A concern for hypertensive urgency/emergency however I will obtain lab work to rule out end-organ damage. Patient does have subconjunctival hemorrhage however has no visual complaints. I am not concerned for head bleed and patient has no chest pain making ACS a less likely differential CT and lab work ordered in triage H&H stable, creatinine stable, mild BNP elevation, 1st troponin 4.4, 2nd troponin 6.3 No signs of ischemia appreciated on patient's EKG and it appears similar to her prior Head CT negative for large bleed on my interpretation and radiologist's impression is negative for intracranial hemorrhage/infarct I gave patient her home hydrochlorothiazide dose and she was still hypertensive despite this Hydralazine given with good effect Patient is discharged with instructions to follow up with her primary care physician to discuss her current antihypertensive medication I also provided her with return precautions Differential Diagnosis Differential Diagnoses: The differential diagnosis associated with the presentation includes Benign hypertension, subconjunctival hemorrhage Low suspicion for hypertensive urgency/emergency, head bleed No concern for ACS Lab Data 03/16/24 16:33 03/16/24 16:33 Labs: Lab Results 03/16/24 03/16/24 Range/Units 16:33 19:12 WBC 6.5 (4.8-10.8) X10*3/uL RBC 4.82 (4.20-5.50) X10*6/uL Hgb 14.2 (12.0-16.0) g/dl Hct 42.1 (37.0-47.0) % MCV 87.3 (80.0-98.0) fL MCH 29.5 (27.0-33.0) pg MCHC 33.7 (31.0-35.0) g/dl RDW 12.9 (11.0-16.0) % Plt Count 216 (160-400) X10*3/uL MPV 9.6 (9.4-12.3) fL Immature Gran % (Auto) 0.3 (0.0-0.4) % Neut % (Auto) 65.7 (45-73) % Lymph % (Auto) 25.5 (20-40) % [place] % (Auto) 5.7 (2-11) % Eos % (Auto) 2.3 (0-4) % Baso % (Auto) 0.5 (0-2) % Lymph # (Auto) 1.7 (1.2-4.9) X10*3/uL [place] # (Auto) 0.4 (0.1-1.2) X10*3/uL Eos # (Auto) 0.2 (0.0-0.4) X10*3/uL Baso # (Auto) 0.0 (0.0-0.2) X10*3/uL Abs Immat Gran (auto) 0.02 (0.00-0.03) X10*3/uL Absolute Neuts (auto) 4.3 (2.0-8.3) x10*3/uL Absolute Nucleated RBC 0.000 (0.0-0.012) X10*3/uL Nucleated RBC % (auto) 0.0 (0.0-0.2) /100WBC PT 12.0 (10.9-12.4) SEC INR 1.0 (0.9-1.1) APTT 35.6 (26.0-36.8) SEC Sodium 144 (135-145) mmol/L Potassium 4.0 (3.3-5.1) mmol/L Chloride 107 (96-108) mmol/L Carbon Dioxide 28 (22-29) mmol/L Anion Gap 13 (12-20) BUN 26 H (9-16) mg/dL Creatinine 1.31 (0.5-1.4) mg/dL Estim Creat Clear Calc 35.4 Estimated GFR 39 Random Glucose 109 (60-115) mg/dL Calcium 9.4 (8.4-10.2) mg/dL Total Bilirubin 0.8 (0.0-1.0) mg/dL AST 21 (5-31) U/L ALT 11 (0-31) U/L Alkaline Phosphatase 84 (39-117) U/L Troponin I High Sens 4.4 6.3 (<3.5-17.0) ng/L B-Natriuretic Peptide 167 H (<100) pg/mL Total Protein 7.4 (6.5-8.0) g/dL Albumin 4.4 (3.5-5.0) g/dL Discharge Plan Discharge Clinical Impression: Hypertension Patient Disposition: Home, Self-Care Additional Instructions: Programe lynsey noemí con lopez m?dico de atenci?n primaria en los pr?ximos 2 o 3 d?as. Deber?as hablar sobre tu medicaci?n antihipertensiva. Si desarrolla alg?n s?ntoma nuevo o que empeora, regrese al departamento de emergencias. Prescriptions: No Action amoxicillin 500 mg tablet 2,000 mg PO ONCE Qty: 4 3RF atenolol 25 mg tablet 1 tab PO DAILY naproxen 250 mg tablet 1 tab PO BID acetaminophen 500 mg Tablet 1,000 mg PO Q6H PRN (Reason: Pain) fluoxetine 10 mg capsule 1 cap PO DAILY hydrochlorothiazide 25 mg tablet 1 tab PO DAILY loratadine 10 mg tablet 1 tab PO DAILY PRN (Reason: allergies) melatonin 5 mg tablet 1 tab PO BEDTIME PRN (Reason: insomnia) oxycodone 5 mg tablet 5 mg PO Q4H PRN (Reason: Pain, Moderate (Pain Scale 4-6) 7 Days Qty: 42 0RF acetaminophen 325 mg Tablet 650 mg PO Q6H PRN (Reason: Pain, Mild (Pain Scale 1-3)) 30 Days Qty: 240 0RF aspirin 325 mg Tablet 325 mg PO BID 42 Days Qty: 84 0RF Interventions: ED Discharge Assessment Last Done: 03/16/24 21:03 Discharge Date/Time: 03/16/24 21:04 Print Language: Turkish
[2024-03-16 16:38] LABS: MANUAL DIFF FLAG NO
[2024-03-16 16:39] LABS: Basophils Percent Auto 0.5 % (0-2); Eosinophils Absolute Auto 0.2 X10*3/uL (0.0-0.4); Eosinophils Percent Auto 2.3 % (0-4); Hematocrit 42.1 % (37.0-47.0); Hemoglobin 14.2 g/dl (12.0-16.0); Imm Gran Abs Auto 0.02 X10*3/uL (0.00-0.03); Imm Gran Pct Auto 0.3 % (0.0-0.4); Lymphocytes Absolute Auto 1.7 X10*3/uL (1.2-4.9); Lymphocytes Percent Auto 25.5 % (20-40); Mean Corpuscular HGB Conc 33.7 g/dl (31.0-35.0); Mean Corpuscular Hemoglobin 29.5 pg (27.0-33.0); Mean Corpuscular Volume 87.3 fL (80.0-98.0); Mean Platelet Volume 9.6 fL (9.4-12.3); Monocytes Absolute Auto 0.4 X10*3/uL (0.1-1.2); Monocytes Percent Auto 5.7 % (2-11); Neutrophils Absolute Auto 4.3 x10*3/uL (2.0-8.3); Neutrophils Percent Auto 65.7 % (45-73); Platelet Count 216 X10*3/uL (160-400); Red Blood Count 4.82 X10*6/uL (4.20-5.50); Red Cell Distribution Width 12.9 % (11.0-16.0); White Blood Count 6.5 X10*3/uL (4.8-10.8)
--- NOTE | 2024-03-16 16:40 | PC.NURSE ---
vss and up to date aside from being hypertensive. nsr on the condenser setter. 20gIV placed in the right AC - labs obtained/sent to lab. ekg performed by tech. pt denies chest pain/palpitations/sob/dizziness/VOGT. respirations even/unlabored. plan of care ongoing. call nguyen placed within reach.
[2024-03-16 16:47] LABS: Partial Thromboplastin Time 35.6 SEC (26.0-36.8)
[2024-03-16 16:52] LABS: Alanine Aminotransferase 11 U/L (0-31); Albumin Level 4.4 g/dL (3.5-5.0); Alkaline Phosphatase 84 U/L (39-117); Anion Gap 13 (12-20); Aspartate Amino Transferase 21 U/L (5-31); Bilirubin Total 0.8 mg/dL (0.0-1.0); Blood Urea Nitrogen 26 mg/dL (9-16); Calcium 9.4 mg/dL (8.4-10.2); Carbon Dioxide 28 mmol/L (22-29); Chloride 107 mmol/L (96-108); Creatinine Clr Calc Pharmacy 35.4; Estimated Glomerular Filt Rate 39; Glucose Random 109 mg/dL (60-115); Sodium 144 mmol/L (135-145); Total Protein 7.4 g/dL (6.5-8.0)
[2024-03-16 16:59] LABS: Troponin-I High Sensitivity 4.4 ng/L (<3.5-17.0)
--- NOTE | 2024-03-16 17:13 | PC.NURSE ---
pt to CT at this time.
[2024-03-16 17:20] LABS: B Type Natriuretic Peptide 167 pg/mL (<100)
[2024-03-16] MEDS: hydroCHLOROthiazide 25 MG TABLET PO (18:10)
--- NOTE | 2024-03-16 18:10 | PC.NURSE ---
pt remains hypertensive. pt still denies chest pain/palpitations/VOGT/dizziness/lightheadedness. medication administered per provider order. effectiveness pending. respirations remain even/unlabored. plan of care ongoing. call nguyen placed within reach.
[2024-03-16 19:44] LABS: Troponin-I High Sensitivity 6.3 ng/L (<3.5-17.0)
[2024-03-16] MEDS: hydrALAZINE HCl 20 MG/ML VIAL 2.5 MG IVPUSH (20:22)
[2024-03-16] MEDS: hydrALAZINE HCl 20 MG/ML VIAL 5 MG IVPUSH (20:40)
== END 2024-03-16 21:04 | disposition home or self-care (01) ==
PROVIDERS: Physician Assistant; Emergency Provider Student in an Organized Health Care Education/Training Program
DX: I10 Essential (primary) hypertension (principal); M25.512 Pain in left shoulder; R29.700 NIHSS score 0; Z87.891 Personal history of nicotine dependence; Z79.899 Other long term (current) drug therapy; Z79.82 Long term (current) use of aspirin
CPT/HCPCS: 36415; 70450; 80053; 83880; 84484; 85025; 85610; 85730; 93005; 96374; 96376; 99284; 99285; J0360

== ENCOUNTER → 2024-03-16 16:04 | Outpatient (BNV) | payer MEDICARE, MEDICAID, SELFPAY | PROVIDERS: Emergency Provider Student in an Organized Health Care Education/Training Program; Visit Provider Internal Medicine Cardiovascular Disease | DX: I10 Essential (primary) hypertension (principal) | CPT/HCPCS: 93010 ==

== ENCOUNTER 2024-03-17 13:40 | Outpatient (REF) | payer MEDICARE, MEDICAID, SELFPAY ==
--- NOTE | ~2024-03-17 | XR_ITS ---
EXAMINATION: XR LUMBOSACRAL SPINE CLINICAL INFORMATION: Chronic lower back pain. COMPARISON: Lumbar spine radiographs dated 04/20/2018. TECHNIQUE: Three views of the lumbosacral spine. FINDINGS: Reverse S-shaped scoliotic curvature of the thoracolumbar spine, unchanged. The lumbar lordosis is maintained. No acute fracture or subluxation. No new loss of vertebral body height. Prominent multilevel loss of intervertebral disc height with endplate osteophytes and facet arthropathy, slightly progressed when compared to the prior radiographs. No concerning lytic or blastic osseous lesion. Atherosclerotic calcifications. XR/XR lumbar spine 2-3V IMPRESSION: 1. Reverse S-shaped scoliotic curvature of the thoracolumbar spine, unchanged. 2. Prominent multilevel degenerative disc disease and facet arthropathy, slightly progressed when compared to the prior radiograph. Electronically signed by: Edgar Fernandez MD 03/17/2024 03:32 PM EDT
--- NOTE | ~2024-03-17 | XR_ITS ---
EXAMINATION: XR SHOULDER, LEFT CLINICAL INFORMATION: Chronic left shoulder pain. Adhesive capsulitis. COMPARISON: None available. TECHNIQUE: AP external rotation, Grashey, scapular Y, and axillary views of the left shoulder. FINDINGS: No acute fracture or dislocation. Moderate acromioclavicular osteoarthritis with moderate lateral subacromial spurring. Small glenohumeral marginal osteophytes. No concerning lytic or blastic osseous lesion. Mild glenohumeral chondrocalcinosis. XR/XR shoulder LT min 2V IMPRESSION: 1. Moderate acromioclavicular osteoarthritis with moderate lateral subacromial spurring. 2. Mild glenohumeral osteoarthritis. Mild glenohumeral chondrocalcinosis. Electronically signed by: Edgar Fernandez MD 03/17/2024 03:32 PM EDT
== END 2024-03-17 13:41 | disposition home or self-care (01) ==
LOC: HO.HHCX 13:40
PROVIDERS: Visit Provider Family Medicine
DX: M75.02 Adhesive capsulitis of left shoulder (principal); M54.50 Low back pain, unspecified; G89.29 Other chronic pain
CPT/HCPCS: 72100; 73030

== ENCOUNTER 2024-03-21 15:19 | Emergency (ER) | payer MEDICARE, MEDICAID, SELFPAY ==
[2024-03-21 15:43] VITALS: BP 146/80; PULSE 75; RESP 20; TEMP 36.8; O2SAT 99
--- NOTE | 2024-03-21 15:45 | ED_ITS ---
HPI - General Adult General Chief complaint: General Medical Stated complaint: High BP Time Seen by Provider: 03/21/24 23:05 History of Present Illness ED Provider: Art OLSEN narrative: 78-year-old female with past medical history of hypertension presenting for hypertension. I saw this patient last week for similar presentation. At that time I instructed her follow up with her PCP which she did and she was started on valsartan. She presents today because she had a blood pressure with a systolic reading in the 180s. She has no physical complaints denying head pain, neck pain, chest pain, shortness of breath, visual disturbances. She is here because she is concerned about her blood pressure being high. Related Data Home Medications ?Medication ?Instructions ?Recorded ?Confirmed acetaminophen 500 mg tablet 1,000 mg PO Q6H PRN Pain 06/03/21 06/03/21 atenolol 25 mg tablet 1 tab PO DAILY 06/03/21 06/03/21 fluoxetine 10 mg capsule 1 cap PO DAILY 06/03/21 06/03/21 hydrochlorothiazide 25 mg tablet 1 tab PO DAILY blood pressure 06/03/21 06/03/21 loratadine 10 mg tablet 1 tab PO DAILY PRN allergies 06/03/21 06/03/21 melatonin 5 mg tablet 1 tab PO BEDTIME PRN insomnia 06/03/21 06/03/21 naproxen 250 mg tablet 1 tab PO BID 06/03/21 06/03/21 Previous Rx's ?Medication ?Instructions ?Recorded acetaminophen 325 mg tablet 650 mg (2 x 325 mg) PO Q6H PRN 09/19/21 Pain, Mild (Pain Scale 1-3) 30 days #240 tabs aspirin 325 mg tablet 325 mg PO BID 42 days #84 tabs 09/19/21 oxycodone 5 mg tablet 5 mg PO Q4H PRN Pain, Moderate 09/19/21 (Pain Scale 4-6 7 days #42 tabs amoxicillin 500 mg tablet 2,000 mg (4 x 500 mg) PO ONCE #4 09/19/22 tabs Allergies Allergy/AdvReac Type Severity Reaction Status Date / Time Seasonal Allergies Allergy Intermediate sneezing/itchy Verified 03/21/24 15:46 eyes DALY Inhibitors AdvReac Intermediate Cough Verified 03/21/24 15:46 Review of Systems 2 Review of Systems: Patient has no physical complaints Yes all other systems are reviewed and are negative [facility] Past Medical History Medical History Arthritis COVID-19 vaccine series completed History of COVID-19 Hypertension Osteoporosis Surgical History H/O colonoscopy Hx of arthroscopy of knee Hx of breast biopsy Hx of cataract surgery Total knee replacement status Family History Family History Mother CAD (coronary artery disease) Social History Social History Household Members: None Housing: House Are you a primary rn care transition to a significant other at home: No Do you presently have visiting nurse or other home services: Yes Alcohol intake: never Patient Tobacco Use Status: Former Tobacco user Tobacco use type: Cigarette Years Smoked: 20 Advance Directives: Yes Advance Directives on File: Yes Advance Directives Date on File: 09/20/21 Do you have a plan to hurt others: No Plan service: No Current occupational status: retired Physical Exam ED Vital Signs: Vital Signs - 24 hr 03/21/24 15:43 03/21/24 23:02 03/22/24 00:29 Temperature 98.3 F 97.3 F Pulse Rate 75 72 Respiratory Rate 20 18 Blood Pressure 146/80 H 171/70 H 186/81 H Pulse Oximetry 99 99 Oxygen Delivery Method Room Air Room Air 03/22/24 00:29 Temperature 98.1 F Pulse Rate 79 Respiratory Rate 16 Blood Pressure 186/81 H Pulse Oximetry 100 Oxygen Delivery Method Room Air BMI result Body Mass Index 30.0 Well-appearing female Lungs clear to auscultation bilaterally; normal S1-S2 regular rate rhythm; abdomen is soft nontender nondistended; mild lower extremity edema appreciate Course Course Course Narrative: This is an RME: Additional HPI, ROS, PE not included below will be deferred to primary provider. RME assessment and note performed by: Anjelica Mann PA-C This is a [id number]-[id number]-female who presents to the ER with complaints of hypertension. Pt was seen on 03/16/2024 for same. Pt had seen her pcp and had switched her BP meds. She is on atenolol 25mg QD, HCTZ 25mg QD, valsartan 40mg QD. She took her BP and it was elevated and she came to the ER to be evaluated. BP 146/80. She has no current complaints. Plan: Labs Medications Administered Discontinued Medications Generic Name Dose Route Start Last Admin Trade Name Alisha PRN Reason Stop Dose Admin Hydrochlorothiazide 25 mg 03/22/24 00:06 03/22/24 00:29 Hydrochlorothiazide 25 Mg Tablet PO 03/22/24 00:07 25 mg ONCE ONE Administration Protocol Medical Decision Making Medical Decision Making [facility] Narrative: This is a 78-year-old female presents for hypertension with no other symptoms. I suspect that this is benign hypertension. Lab work was ordered on patient and she did have a small bump in her creatinine however her LFTs are normal - no signs of ischemia seen on EKG and negative troponin; H&H stable - I had at length discussion with the patient regarding her hypertension. I told her that she should continue following up with her PCP and that the valsartan might take a little while to have a good effect on her blood pressure. I did tell her that her creatinine was elevated and offered to have her stay for hydration however she declined stating that she will drink more water at home. I also gave her instructions on when to measure her blood pressure at home and reasons for her to come back to the emergency department. I also told the patient to have her lab work repeated later this week to ensure that her creatinine is not worsening - I am not concerned for hypertensive urgency or emergency at this time - I gave patient a dose of hydrochlorothiazide and her blood pressure at time of discharge had a systolic of 169 Differential Diagnosis Differential Diagnoses: The differential diagnosis associated with the presentation includes Hypertension Lab Data 03/21/24 16:07 03/21/24 16:07 Labs: Lab Results 03/21/24 Range/Units 16:07 WBC 6.2 (4.8-10.8) X10*3/uL RBC 4.48 (4.20-5.50) X10*6/uL Hgb 13.2 (12.0-16.0) g/dl Hct 38.8 (37.0-47.0) % MCV 86.6 (80.0-98.0) fL MCH 29.5 (27.0-33.0) pg MCHC 34.0 (31.0-35.0) g/dl RDW 13.0 (11.0-16.0) % Plt Count 234 (160-400) X10*3/uL MPV 9.7 (9.4-12.3) fL Immature Gran % (Auto) 0.3 (0.0-0.4) % Neut % (Auto) 67.9 (45-73) % Lymph % (Auto) 21.8 (20-40) % [place] % (Auto) 6.9 (2-11) % Eos % (Auto) 2.6 (0-4) % Baso % (Auto) 0.5 (0-2) % Lymph # (Auto) 1.4 (1.2-4.9) X10*3/uL [place] # (Auto) 0.4 (0.1-1.2) X10*3/uL Eos # (Auto) 0.2 (0.0-0.4) X10*3/uL Baso # (Auto) 0.0 (0.0-0.2) X10*3/uL Abs Immat Gran (auto) 0.02 (0.00-0.03) X10*3/uL Absolute Neuts (auto) 4.2 (2.0-8.3) x10*3/uL Absolute Nucleated RBC 0.000 (0.0-0.012) X10*3/uL Nucleated RBC % (auto) 0.0 (0.0-0.2) /100WBC Sodium 138 (135-145) mmol/L Potassium 4.4 (3.3-5.1) mmol/L Chloride 103 (96-108) mmol/L Carbon Dioxide 28 (22-29) mmol/L Anion Gap 11 L (12-20) BUN 34 H (9-16) mg/dL Creatinine 1.73 H (0.5-1.4) mg/dL Estim Creat Clear Calc 26.9 Estimated GFR 28 Random Glucose 118 H (60-115) mg/dL Calcium 9.7 (8.4-10.2) mg/dL Total Bilirubin 0.6 (0.0-1.0) mg/dL AST 19 (5-31) U/L ALT 14 (0-31) U/L Alkaline Phosphatase 73 (39-117) U/L Troponin I High Sens 3.2 (<3.5-17.0) ng/L Total Protein 7.2 (6.5-8.0) g/dL Albumin 4.1 (3.5-5.0) g/dL Discharge Plan Discharge Clinical Impression: Hypertension Patient Disposition: Home, Self-Care Additional Instructions: Programe lynsey noemí con lopez proveedor de atenci?n primaria para que lo atiendan el jueves o viernes, ya que necesita repetir los an?lisis de laboratorio para observar lopez funci?n renal. Aseg?rate de beber edilberto agua erica el d?a para mantenerte aba hidratado. Si desarrolla alg?n s?ntoma penny dolor de keely, dolor de nikhil, dolor de pecho, dificultad para respirar, mareos, alteraciones visuales, entumecimiento u hormigueo, regrese al departamento de emergencias. Prescriptions: No Action amoxicillin 500 mg tablet 2,000 mg PO ONCE Qty: 4 3RF atenolol 25 mg tablet 1 tab PO DAILY naproxen 250 mg tablet 1 tab PO BID acetaminophen 500 mg Tablet 1,000 mg PO Q6H PRN (Reason: Pain) fluoxetine 10 mg capsule 1 cap PO DAILY hydrochlorothiazide 25 mg tablet 1 tab PO DAILY loratadine 10 mg tablet 1 tab PO DAILY PRN (Reason: allergies) melatonin 5 mg tablet 1 tab PO BEDTIME PRN (Reason: insomnia) oxycodone 5 mg tablet 5 mg PO Q4H PRN (Reason: Pain, Moderate (Pain Scale 4-6) 7 Days Qty: 42 0RF acetaminophen 325 mg Tablet 650 mg PO Q6H PRN (Reason: Pain, Mild (Pain Scale 1-3)) 30 Days Qty: 240 0RF aspirin 325 mg Tablet 325 mg PO BID 42 Days Qty: 84 0RF Print Language: Gambian
--- NOTE | 2024-03-21 15:50 | ECG_ITS ---
Test Reason : chest pain Blood Pressure : / mmHG Vent. Rate : 070 BPM Atrial Rate : 070 BPM P-R Int : 190 ms QRS Dur : 076 ms QT Int : 398 ms P-R-T Axes : 028 009 018 degrees QTc Int : 429 ms Artifact Normal sinus rhythm Minimal voltage criteria for LVH, may be normal variant ( R in aVL ) Borderline ECG When compared with ECG of 16-MAR-2024 16:41, No significant change was found Referred By: Anjelica Mann Electronically Signed By:RADHA FLORES
[2024-03-21 16:11] LABS: MANUAL DIFF FLAG NO
[2024-03-21 16:16] LABS: Basophils Percent Auto 0.5 % (0-2); Eosinophils Absolute Auto 0.2 X10*3/uL (0.0-0.4); Eosinophils Percent Auto 2.6 % (0-4); Hematocrit 38.8 % (37.0-47.0); Hemoglobin 13.2 g/dl (12.0-16.0); Imm Gran Abs Auto 0.02 X10*3/uL (0.00-0.03); Imm Gran Pct Auto 0.3 % (0.0-0.4); Lymphocytes Absolute Auto 1.4 X10*3/uL (1.2-4.9); Lymphocytes Percent Auto 21.8 % (20-40); Mean Corpuscular Hemoglobin 29.5 pg (27.0-33.0); Mean Corpuscular Volume 86.6 fL (80.0-98.0); Mean Platelet Volume 9.7 fL (9.4-12.3); Monocytes Absolute Auto 0.4 X10*3/uL (0.1-1.2); Monocytes Percent Auto 6.9 % (2-11); Neutrophils Absolute Auto 4.2 x10*3/uL (2.0-8.3); Neutrophils Percent Auto 67.9 % (45-73); Platelet Count 234 X10*3/uL (160-400); Red Blood Count 4.48 X10*6/uL (4.20-5.50); White Blood Count 6.2 X10*3/uL (4.8-10.8)
[2024-03-21 16:27] LABS: Alanine Aminotransferase 14 U/L (0-31); Albumin Level 4.1 g/dL (3.5-5.0); Alkaline Phosphatase 73 U/L (39-117); Anion Gap 11 (12-20); Aspartate Amino Transferase 19 U/L (5-31); Bilirubin Total 0.6 mg/dL (0.0-1.0); Blood Urea Nitrogen 34 mg/dL (9-16); Calcium 9.7 mg/dL (8.4-10.2); Carbon Dioxide 28 mmol/L (22-29); Chloride 103 mmol/L (96-108); Creatinine Clr Calc Pharmacy 26.9; Estimated Glomerular Filt Rate 28; Glucose Random 118 mg/dL (60-115); Potassium 4.4 mmol/L (3.3-5.1); Sodium 138 mmol/L (135-145); Total Protein 7.2 g/dL (6.5-8.0)
[2024-03-21 16:33] LABS: Troponin-I High Sensitivity 3.2 ng/L (<3.5-17.0)
[2024-03-21 23:02] VITALS: BP 171/70; PULSE 72; RESP 18; TEMP 36.3; O2SAT 99
[2024-03-22 00:29] VITALS: BP 186/81; PULSE 79; RESP 16; TEMP 36.7; O2SAT 100
[2024-03-22] MEDS: hydroCHLOROthiazide 25 MG TABLET PO (00:29)
[2024-03-22 01:34] VITALS: BP 186/81; PULSE 79; RESP 16; TEMP 36.7; O2SAT 100
== END 2024-03-22 01:35 | disposition home or self-care (01) ==
PROVIDERS: Physician Assistant Medical; Emergency Provider Student in an Organized Health Care Education/Training Program; PCP Family Medicine
DX: R03.0 Elevated blood-pressure reading, without diagnosis of hypertension (principal); R07.89 Other chest pain; Z79.899 Other long term (current) drug therapy
CPT/HCPCS: 36415; 80053; 84484; 85025; 93005; 99283

== ENCOUNTER → 2024-03-21 15:50 | Outpatient (BNV) | payer MEDICARE, MEDICAID, SELFPAY | PROVIDERS: Emergency Provider Student in an Organized Health Care Education/Training Program; PCP Family Medicine; Visit Provider Internal Medicine | DX: R07.9 Chest pain, unspecified (principal); R94.31 Abnormal electrocardiogram [ECG] [EKG] | CPT/HCPCS: 93010 ==

== ENCOUNTER 2024-03-28 12:16 | Outpatient (REF) | payer MEDICARE, OTHER, SELFPAY ==
[2024-03-28 13:56] LABS: Anion Gap 13 (12-20); Blood Urea Nitrogen 34 mg/dL (9-16); Calcium 9.3 mg/dL (8.4-10.2); Carbon Dioxide 29 mmol/L (22-29); Chloride 102 mmol/L (96-108); Estimated Glomerular Filt Rate 26; Glucose Random 113 mg/dL (60-115); Potassium 3.5 mmol/L (3.3-5.1); Sodium 140 mmol/L (135-145)
[2024-03-29 04:24] LABS: ~HepC Num1 0.07 S/CO (0.00-0.79); ~Hepatitis C Antibody Nonreactive (Nonreactive)
== END 2024-03-28 12:17 | disposition home or self-care (01) ==
LOC: HO.LAB 12:16
PROVIDERS: PCP Family Medicine; Visit Provider Family Medicine
DX: R79.89 Other specified abnormal findings of blood chemistry (principal); Z11.59 Encounter for screening for other viral diseases
CPT/HCPCS: 36415; 80048; 86803

== ENCOUNTER 2024-04-04 06:03 | Day surgery (SDC) | payer MEDICARE, MEDICAID, SELFPAY ==
[2024-03-29 09:07] VITALS: BMI 31.7
[2024-04-04 09:40] VITALS: BP 139/68; PULSE 65; RESP 16; TEMP 36; O2SAT 100
--- NOTE | 2024-04-04 10:18 | MHC.SHP ---
Pre-Procedural Eval Section A - 24 Hr Update-Section A only Date of Service: 04/04/24 The patient is an INPATIENT: No Changes since office visit: No Cold of Flu in the past 2 weeks, No New Medical Problems, No Changes in Medication and No Patient answered all questions The patient has been examined within 24 hours of the surgical procedure. The History & Physical has been completed within 30 days and I have reviewed it.: Yes Section B - Complete if H&P > 30 days Chief Complaint: Unspecified ptosis of bilateral eyelids Allergies: Allergies Allergy/AdvReac Type Severity Reaction Status Date / Time Seasonal Allergies Allergy Intermediate sneezing/itchy Verified 03/21/24 15:46 eyes DALY Inhibitors AdvReac Intermediate Cough Verified 03/21/24 15:46 Plan Diagnosis/Plan: Unchanged I have reviewed the history and physical and performed a pertinent physical examination on my patient. No changes have occurred unless specified. Time Spent With Patient Time: Total time managing care of this patient today ____ minutes.
[2024-04-04] MEDS: Lactated Ringers 500 ML 80 ML IVCONT (10:40)
[2024-04-04 11:46] VITALS: BP 146/73; PULSE 64; RESP 16; TEMP 36.1; O2SAT 99
[2024-04-04 12:03] VITALS: BP 141/60; PULSE 64; RESP 16; TEMP 36.1; O2SAT 100
--- NOTE | 2024-04-04 14:56 | OP_ITS ---
DATE OF SERVICE: 04/04/2024 SURGEON: Alfonso Doan MD PREOPERATIVE DIAGNOSIS: Bilateral ptosis. POSTOPERATIVE DIAGNOSIS: Bilateral ptosis. PROCEDURE PERFORMED: Bilateral levator resection. ESTIMATED BLOOD LOSS: COMPLICATIONS: ANESTHESIA: MAC. ASSISTANTS: SPECIMENS: DESCRIPTION OF PROCEDURE: After obtaining informed consent, the patient was brought to the operating room suite and placed in the supine position. After adequate sedation, her eyes were prepped and draped in usual sterile fashion. Attention was directed to the left eye where an incision was created along the superior mid crease. This was followed by blunt and sharp dissection inferiorly down to the base of the tarsus. Double-armed suture [place] was utilized partial thickness through the superior left tarsus. Lid was inverted to be sure that suture was partial depth. A suture was then placed superiorly after a pocket was made subcutaneously with the sharp and blunt dissection. Sutures were passed up through the levator and positioned in place. Attention was directed to the right eye where identical procedure was performed. Lidocaine was injected. Incision was created allowing superior lid crease, which was undermined with sharp and blunt dissection through the tarsus. Double-armed 6-0 [place] suture was utilized partial thickness through the tarsus. The lid was doubly inverted to be sure that the suture was passed through partial thickness. The suture was then advanced through the levator superiorly. There was a previously excised subcutaneous pocket made for the suture to exit. The sutures were then tied in position. Skin incisions were then closed with 6-0 plain. Erythromycin was placed. Patient tolerated the procedure well and will be seen in followup. MD TRISHA Moreno/MODL / [id number]
== END 2024-04-04 13:00 | disposition home or self-care (01) ==
PROVIDERS: PCP Family Medicine; Visit Provider Ophthalmology
PROC: (CPT 67904; principal; 2024-04-04 10:00)
DX: H02.413 Mechanical ptosis of bilateral eyelids (principal); Z96.1 Presence of intraocular lens; I10 Essential (primary) hypertension; F32.A Depression, unspecified; Z98.890 Other specified postprocedural states; Z66 Do not resuscitate; Z79.1 Long term (current) use of non-steroidal anti-inflammatories (NSAID); Z79.899 Other long term (current) drug therapy; Z88.8 Allergy status to other drugs, medicaments and biological substances
CPT/HCPCS: 67904; J2003; J2250; J2704; J3010

== ENCOUNTER 2024-04-14 13:50 | Outpatient (REF) | payer MEDICARE, OTHER, SELFPAY ==
[2024-04-14 14:57] LABS: Anion Gap 14 (12-20); Blood Urea Nitrogen 22 mg/dL (9-16); Calcium 9.7 mg/dL (8.4-10.2); Carbon Dioxide 29 mmol/L (22-29); Chloride 102 mmol/L (96-108); Estimated Glomerular Filt Rate 32; Glucose Random 101 mg/dL (60-115); Potassium 3.8 mmol/L (3.3-5.1); Sodium 141 mmol/L (135-145)
== END 2024-04-14 13:51 | disposition home or self-care (01) ==
LOC: HO.LAB 13:50
PROVIDERS: PCP Family Medicine; Visit Provider Family Medicine
DX: N18.4 Chronic kidney disease, stage 4 (severe) (principal)
CPT/HCPCS: 36415; 80048

== ENCOUNTER 2024-04-20 13:50 | Outpatient (AMB) | payer MEDICARE, MEDICAID, SELFPAY ==
--- NOTE | 2024-04-20 14:09 | A.OFFVIS_ITS ---
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 Patient reports her pain has been present for over a month. Denies injury. Intermittent pain that radiates into her shoulder blade as as well a tingling sensation. Finds relief with naproxen, she states she is not suppose to take medication due to other medical conditions. She has attended therapy in the past. 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 [id number] Allergies Seasonal Allergies Allergy (Intermediate, Verified 04/20/24 14:13) sneezing/itchy eyes DALY Inhibitors Adverse Reaction (Intermediate, Verified 04/20/24 14:13) Cough PFSH Medical History (Updated 04/20/24 @ 14:23 by Cony Murdock PA-C) Depression Osteoporosis Arthritis Hypertension Surgical History Hx of tonsillectomy History of total bilateral knee replacement Hx of breast biopsy Hx of arthroscopy of knee H/O colonoscopy Hx of cataract surgery Family History Mother CAD (coronary artery disease) Social History (Updated 04/20/24 @ 14:15 by JULIA Preciado) Household Members: None Housing: House Are you a primary managed care coordinator to a significant other at home: No Do you presently have visiting nurse or other home services: Yes Alcohol intake: never Patient Tobacco Use Status: Former Tobacco user Tobacco use type: Cigarette Years Smoked: 20 Advance Directives Date on File: 09/20/21 service: No Current occupational status: retired Current occupation: right hand dominant Physical Exam Vital Signs: BMI result Body Mass Index 31.5 Assessment & Plan Assessment & Plan (1) Osteoarthritis of right acromioclavicular joint: Code(s): M19.011 - Primary osteoarthritis, right shoulder Category: Medical Orders: Orders PT Evaluation and Treatment Today M19.011 - Primary osteoarthritis, right shoulder Coding Diagnoses Osteoarthritis of right acromioclavicular joint M19.011
[2024-04-20 14:17] VITALS: BMI 31.5
--- NOTE | 2024-04-20 14:28 | A.OFFVIS_ITS ---
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 She complains of having pain in the left shoulder. She states she is unable to lift or do any activities because of the pain. She is interested in getting an injection to the shoulder on today?s visit. PENDING SALE TO [facility] Medical History (Updated 04/20/24 @ 14:23 by Cony Murdock PA-C) Depression Osteoporosis Arthritis Hypertension Surgical History Hx of tonsillectomy History of total bilateral knee replacement Hx of breast biopsy Hx of arthroscopy of knee H/O colonoscopy Hx of cataract surgery Family History Mother CAD (coronary artery disease) Social History (Updated 04/20/24 @ 14:15 by JULIA Preciado) Household Members: None Housing: House Are you a primary home care coordinator to a significant other at home: No Do you presently have visiting nurse or other home services: Yes Alcohol intake: never Patient Tobacco Use Status: Former Tobacco user Tobacco use type: Cigarette Years Smoked: 20 Advance Directives Date on File: 09/20/21 service: No Current occupational status: retired Current occupation: right hand dominant Review of Systems Const All systems reviewed & are unremarkable except as noted in HPI and below Physical Exam Vital Signs: BMI result Body Mass Index 31.5 Extrem Other: Left shoulder: Normal to inspection. Tenderness over the bicipital groove and along the deltoid region of the shoulder. Forward flexion to 175, external rotation to 90, internal rotation to S1. 5/5 RTC strength. Negative [place] and positive cross body abduction. NVI. Office Procedures AMB Joint Injection/Aspiration Joint Injection/Aspiration Primary Site: left shoulder Prep: site was prepped using aseptic technique, ethochloride spray was applied and injection warnings given Injected: 80 mg of, DepoMedrol, with 8 mL of, 1% plain lidocaine and in the subcromial space Approach Used: posterolateral Procedure: The patient tolerated the procedure well and there was some relief with the local anesthesia Coding 03324 - Glenohumeral/Tronchanteric Bursa/Intraarticular Procedure code (CPT) selection complete Results Reviewed Results Reviewed: XR shoulder LT min 2V IMPRESSION: 1. Moderate acromioclavicular osteoarthritis with moderate lateral subacromial spurring. 2. Mild glenohumeral osteoarthritis. Mild glenohumeral chondrocalcinosis. Assessment & Plan Assessment & Plan (1) Osteoarthritis of right acromioclavicular joint: Code(s): M19.011 - Primary osteoarthritis, right shoulder Category: Medical Plan We discussed options today, which include steroid injection. The patient did consent to move forward with left shoulder injection, which was tolerated well. I recommended rest, ice, and elevation and OTC anti-inflammatories as needed for discomfort. If symptoms persist over the next 6-8 weeks, they will contact the office, otherwise as needed. She was also referred to physical therapy Scribed for Cony Murdock PA-C, by Rocio Rucker medical physicist, on 04/20/2024 at 14:15 PM EST. I, Cony Murdock PA-C, have personally reviewed and agree with the information entered by the scribe. Orders: Orders PT Evaluation and Treatment Today M19.011 - Primary osteoarthritis, right shoul yon Coding Level of Care Code Est Pt Level 3 (03165) Complex EM visit Add On G2211 Diagnoses Osteoarthritis of right acromioclavicular joint M19.011 CPT Codes Coding - Joint 7: 46290 - Glenohumeral/Tronchanteric Bursa/Intraarticular ([id number])
[2024-04-20 14:32] VITALS: BMI 31.5
== END 2024-04-20 14:57 | disposition home or self-care (01) ==
PROVIDERS: PCP Family Medicine; Visit Provider Physician Assistant
DX: M19.012 Primary osteoarthritis, left shoulder (principal)
CPT/HCPCS: 20610; 99213

== ENCOUNTER → 2024-04-20 13:50 | Outpatient (BNVA) | payer MEDICARE, MEDICAID, SELFPAY | PROVIDERS: PCP Family Medicine; Visit Provider Physician Assistant | DX: M19.012 Primary osteoarthritis, left shoulder (principal) | CPT/HCPCS: 20610; 99212; J1010; J2003 ==

== ENCOUNTER 2024-05-17 10:28 | Outpatient (REF) | payer MEDICARE, OTHER, SELFPAY ==
[2024-05-17 12:13] LABS: Anion Gap 13 (12-20); Blood Urea Nitrogen 24 mg/dL (9-16); Calcium 9.2 mg/dL (8.4-10.2); Carbon Dioxide 31 mmol/L (22-29); Chloride 101 mmol/L (96-108); Estimated Glomerular Filt Rate 33; Glucose Random 111 mg/dL (60-115); Potassium 3.5 mmol/L (3.3-5.1); Sodium 141 mmol/L (135-145)
== END 2024-05-17 10:29 | disposition home or self-care (01) ==
LOC: HO.HHCL 10:28
PROVIDERS: Visit Provider Family Medicine
DX: I10 Essential (primary) hypertension (principal)
CPT/HCPCS: 36415; 80048

== ENCOUNTER 2024-07-05 10:26 | Outpatient (RCR) | payer MEDICARE, MEDICAID, OTHER, SELFPAY ==
[2024-05-18 11:38] VITALS: BP 144/65; PULSE 66
--- NOTE | 2024-05-18 12:30 | MHC.PT.EP ---
[facility] [place] Office [place] Office [place] Office [address] [phone] F: [phone] F: [phone] F: [phone] F: [phone] Physical Therapy Plan of Care Date of Evaluation: 05/18/24 Date of Surgery: Diagnosis: R shoulder OA Assessment: 78 y/o R-hand dominant female referred to physical therapy w/ referring diagnosis of primary OA R shoulder. Called for updated script to have L shoulder instead of R. S/s consistent with referring dx and RTC strain. resulting in pain and difficulty with reaching, grooming, dressing, and sleeping on involved side. Impairments include pain, decreased range of motion, decreased strength, impaired functional mobility, impaired postural awareness, and altered ambulation mechanics. pt is a good candidate for skilled PT due to age, potential remediation of impairments, typical disease/condition progression and prognosis, comorbidities, and motivation. pt would benefit from skilled PT intervention to provide a tailored strengthening and stretching exercise program, functional training, gait training, postural re-training, neuromuscular re-education, modalities as needed for pain, equipment safety demonstration. Frequency and Duration: The patient will be seen 2x/week for 5 weeks Short Term Goals: pt will be I w/ HEP to promote self-management of condition. pt will improve R shoulder flexion by 10 degrees to promote ease in reaching for objects on higher shelves. Shelter Goals: pt will elevate L shoulder into flexion and abduction to at least 115* w/o UT compensation to maximize upper body ADLs. pt will report <2/10 L shoulder pain w/ reaching behind back. Treatment Plan: Modalities to reduce pain, spasms and effusion. Manual therapy to restore motion and function. Therapeutic exercise to improve strength and flexibility. Neuromuscular re-education for posture and balance. Therapeutic activities to return to functional activities of daily living. Electronically signed by: Myla Horowitz PT Please sign and return to therapist. Thank you for your referral.
--- NOTE | 2024-07-05 12:09 | MHC.PT.DC ---
[facility] [place] Office [place] Office [place] Office [address] [phone] F: [phone] F: [phone] F: [phone] F: [phone] Physical Therapy Discharge Report Diagnosis: R shoulder OA Date of Surgery: Date of Evaluation: 05/18/24 Date of Discharge: 07/05/24 Treatments to Date: 9 Cancellations to Date: 0 No Shows to Date: 0 Discharge Status: Improved Function Independent with HEP Discharge Summary: Pt reports pain is no longer constant, but if she moves quickly reaching into cabinets, she can get pinching pain but not every time. She is compliant with HEP and reviewed importance of conitnuing with I program. D/c at this time Electronically signed by: Myla Horowitz PT Please sign and return to therapist. Thank you for your referral.
== END 2024-07-05 12:09 | disposition home or self-care (01) ==
LOC: HO.PT 10:26
PROVIDERS: PCP Family Medicine; Visit Provider Physician Assistant
DX: M19.011 Primary osteoarthritis, right shoulder (principal)
CPT/HCPCS: 97110; 97140; 97162

== ENCOUNTER 2024-07-29 09:25 | Outpatient (REF) | payer MEDICARE, MEDICAID, OTHER, SELFPAY ==
--- OUTSIDE RECORDS SUMMARY | 2024-07-29 09:58 | XMS_ITS | Encounter Summary ---
Author Organization [facility] Address [address] [place] [address] Care Team Providers Care Door Builder Name Role Phone Gerda Mc MD Primary Care Provider +- [phone] Jenny Gardner PharmD Unavailable [phone]- [phone] Reason for Visit * Reason Comments Med Refill Encounter Details Date Type Department Care Team ([facility] st Contact Info) Description 07/19/2024 Refill [facility] [address] [place] [address] Gerda Mc MD [address] [place], [place] [phone] Allergic rhinitis, unspecified seasonality, unspecified trigger Social History Tobacco Use Types Packs/Day Years Used Date Smoking Tobacco: Never Smokeless Tobacco: Never Alcohol Use Standard Drinks/Week Comments Never 0 (1 standard drink = 0.6 oz pur e alcohol) Depression Answer Date Recorded Patient Health Questionnaire-9 Score 4 06/30/2022 Housing Stability Answer Date Recorded What is your housing situation today? I have fco dyer 03/23/[address] you li ve. Do you have problems with any of the following? None of the above 03/23/2023 Food Insecurity Answer Date Recorded Within the past 12 months, y ou worried that your food would run out before you got money to buy more: Never True 03/23/2023 Within the past 12 months,th e food you bought just didn't last and you didn't have enough money to get more: Never True Transportation Answer Date Recorded In the past 12 months, has l ack of transportation kept you from medical appts, meetings, work or from getting things needed for daily living? No 03/23/2023 Utilities Answer Date Recorded In the past 12 months, has t he electric, gas, oil or water company threatened to shut off services in your home? I am not sure 03/17/2024 Depression Answer Date Recorded Patient Health Questionnaire-2 Score 5 03/17/2024 Internet Access Answer Date Recorded Internet Access Q1 Yes 03/17/2024 Internet Access Q2 Not on file 03/17/2024 Comments Unknown Sex and Gender Information Value Date Recorded Sex Assigned at Female 04/07/2022 10:14 AM EDT Legal Sex Female 10:14 AM EDT Gender Identity Female 04/07/2022 10:14 AM EDT Sexual Orientation Straight 04/07/2022 10 :14 AM EDT documented as of this encounter Plan of Treatment Upcoming Encounters Date Type Department Care Team (Late st Contact Info) Description 08/16/2024 1:00 PM EDT Medication Management [facility] [address] [place] [address] Jenny Gardner PharmD [address] [place] [phone] 08/31/2024 1:30 PM EDT Office Visit [facility] [address] [place] [address] Vijay Brandt DDS [address] [place] [address] documented as of this encounter Visit Diagnoses Diagnosis Allergic rhinitis, unspecified seasonality, unspecified trigger documented in this encounter Additional Health Concerns Assessment Noted Time PHQ-9 Depression Total Score: 4 06/30/19 23 11:18 AM EST documented as of this encounter Care Teams Door Builder Relationship Specialty Start Date End Date Gerda Mc MD [address] [place] [phone] PCP - General Family Medicine 06/08/18 Jenny Gardner, MarianaD [address] [place] [phone] Pharmacist Internal Medicine 04/13/24 documented as of this encounter
--- OUTSIDE RECORDS SUMMARY | 2024-07-29 09:58 | XMS_ITS | Encounter Summary ---
Author Organization [employer] Address [address] [facility] [address] [place] [address] Care Team Providers Care Bicycle Rental Clerk Name Role Phone Gerda Mc MD Primary Care Provider +- [phone] Jenny Gardner PharmD Unavailable [phone] Reason for Visit * Reason Comments Med Refill Encounter Details Date Type Department Care Team (Late st Contact Info) Description 11/24/2023 Refill [facility] [address] [place] [address] Gerda Mc MD [address] [place], [place] [phone] Arthralgia of shoulder, unspecified laterality Social History Tobacco Use Types Packs/Day Years [...] to shut off services in your home? No 03/23/2023 Depression Answer Date Recorded Patient Health Questionnaire-2 Score 2 06/30/2022 Comments Unknown Sex and Gender Information Value [...] Description 08/16/2024 1:00 PM EDT Medication Management [facility] [address] [place] [address] Jenny Gardner PharmD [address] [place] [address] 08/31/2024 1:30 PM EDT Office Visit [facility] [address] [place] [address] Vijay Brandt DDS [address] [place] [address] documented as of this encounter Visit Diagnoses Diagnosis Arthralgia of shoulder, unspecified laterality documented in this encounter Additional Health Concerns Assessment Noted Time PHQ-9 Depression Total Score: 4 06/30/19 23 11:18 AM EST documented as of this encounter Care Teams Bicycle Rental Clerk Relationship Specialty Start Date End Date Gerda Mc MD [address] [place] [phone] PCP - General Family Medicine 06/08/18 Jenny Gardner PharmD [address] [place] [phone] Pharmacist Internal Medicine 04/13/24 documented as of this encounter
--- OUTSIDE RECORDS SUMMARY | 2024-07-29 09:58 | XMS_ITS | Encounter Summary ---
Author Organization [employer] Address [address] [place] [address] Care Team Providers Care Polyethylene Combiner Name Role Phone Gerda Mc MD Primary Care Provider +- [phone] Jenny Gardner PharmD Unavailable [phone]- [phone] Reason for Visit * Reason Comments Med Refill Encounter Details Date Type Department Care Team ([facility] st Contact Info) Description 07/12/2024 Refill [facility] [address] [place], [place] [phone] Gerda Mc MD [address] [place], [place] [phone] Vitamin D deficiency Social History Tobacco Use Types Packs/Day Years [...] Description 08/16/2024 1:00 PM EDT Medication Management [facility] [address] [place] [address] Jenny Gardner PharmD [address] [place] [phone] 08/31/2024 1:30 PM EDT Office Visit [facility] [address] [place] [address] Vijay Brandt DDS [address] [place] [address] documented as of this encounter Visit Diagnoses Diagnosis Vitamin D deficiency documented in this encounter Additional Health Concerns Assessment Noted Time PHQ-9 Depression Total Score: 4 06/30/19 23 11:18 AM EST documented as of this encounter Care Teams Polyethylene Combiner Relationship Specialty Start Date End Date Gerda Mc MD [address] [place] [phone] PCP - General Family Medicine 06/08/18 Jenny Gardner PharmD [address] [place] [phone] Pharmacist Internal Medicine 04/13/24 documented as of this encounter
--- OUTSIDE RECORDS SUMMARY | 2024-07-29 09:58 | XMS_ITS | Clinical Summary ---
Author Organization [employer] Address [address] [facility] [address] [place] [address] Care Team Providers Care Reliability Specialist Name Role Phone Gerda Mc MD Primary Care Provider [phone] Jenny Gardner PharmD Unavailable [phone] Allergies Active Allergy Reactions Criticality Noted Date Comments George Inhibitors Cough High 02/03/2013 Medications atenolol (Tenormin) 25 MG tabletIndication s:Primary hypertension,Hyp ertension, essential take 1 tablet (25MG) by oral route every day Strength: 25 mg 90 tablet 3 03/17/20 24 Active acetaminophen (Tylenol) 325 MG tabletIndication s:Arthralgia of shoulder, unspecified laterality TAKE 2 TABLETS BY MOUTH EVERY 6 HOURS NEEDED FOR PAIN (KNEE) 60 tablet 1 06/16/19 25 Active amLODIPine (Norvasc) 10 MG tabletIndication s:Essential (primary) hypertension Take 1 tablet by mouth once daily 90 tablet 06/21/19 25 Active cholecalciferol (Vitamin D-3) 25 MCG tabletIndication s:Vitamin D deficiency TAKE 1 TABLET BY MOUTH ONCE DAILY IN THE MORNING 90 tablet 3 07/12/19 25 Active loratadine (Claritin) 10 MG tabletIndication s:Allergic rhinitis, unspecified seasonality, unspecified trigger TAKE 1 TABLET BY MOUTH EVERY DAY FOR ALLERGIES 90 tablet 3 07/19/19 25 Active loratadine (Claritin) 10 MG tabletIndication s:Allergic rhinitis, unspecified seasonality, unspecified trigger take 1 tablet (10MG) by oral route every day for allergies Strength: 10 mg 90 tablet 3 06/26/19 24 02/11/2 025 Discontinued cholecalciferol (Vitamin D-3) 25 MCG (1000 UT) tabletIndication s:Vitamin D Deficiency Take 1 tablet (25 mcg) by mouth in the morning. 90 tablet 3 06/26/19 24 025 Discontinued Active Problems Problem Noted Date Diagnosed Date CKD (chronic kidney disease) stage 4, GFR 15-29 ml/min 03/29/2024 Overview (03/30/2024): Lab Results Component Value Date CREATININE 1.84 (H) 03/28/2024 CREATININE 1.73 (H) 03/21/2024 CREATININE 1.34 06/12/2023 EGFR 26 03/28/2024 LDLCHOLCAL 97 06/12/2023 -referred to nephrology 03/29/24, cancelled 03/30/24 -03/30/24 discussed with pharmacist that bump in Creatinine could be due to Valsartan, will discontinue and start Amlodipine 2.5mg at night and recheck Creatinine in 2 weeks. Assessment & Plan (03/30/2024 11:03 AM EDT): Lab Results Component Value Date CREATININE 1.84 (H) 03/28/2024 CREATININE 1.73 (H) 03/21/2024 CREATININE 1.34 06/12/2023 EGFR 26 03/28/2024 LDLCHOLCAL 97 06/12/2023 -referred to nephrology 03/29/24, cancelled 03/30/24 -03/30/24 discussed with pharmacist that bump in Creatinine could be due to Valsartan, will discontinue and start Amlodipine 2.5mg at night and recheck Creatinine in 2 weeks. Left shoulder pain 03/17/2024 Overview (04/20/2024): X ray 03/17/24: Moderate acromioclavicular osteoarthritis with moderate lateral subacromial spurring. Mild glenohumeral osteoarthritis. Mild glenohumeral chondrocalcinosis. -s/p steroid injection 04/20/24 with Cony Murdock PA-C [facility] 05/11/2023 Overview (06/26/2023): -next physical exam due after 06/26/2024 -eye care facilitated by followed by Dr. Alfonso Doan of [facility] -dental home is [facility] dental -health care proxy signed and filed 06/26/2023 Assessment & Plan (06/26/2023 9:49 AM EST): -next physical exam due after 06/26/2024 -eye care facilitated by followed by Dr. Alfonso Doan of [facility] -dental home is [facility] dental -health care proxy signed and filed 06/26/2023 Assessment & Plan (05/11/2023 11:25 AM EST): -next physical exam due after 06/2023 -eye care facilitated by -dental home is Degeneration of lumbar intervertebral disc 06/30 Overview (03/17/2024): XR/XR lumbar spine 2-3V 03/17/24 IMPRESSION: Reverse S-shaped scoliotic curvature of the thoracolumbar spine, unchanged. Prominent multilevel degenerative disc disease and facet arthropathy, slightly progressed when compared to the prior radiograph. S/P total knee arthroplasty 06/27/2022 Overview (04/12/2024): She underwent left knee arthroplasty on 09/17/[address] Deven Jefferson, pain controlled Assessment & Plan (06/26/2023 9:05 AM EST): She underwent left knee arthroplasty on 09/17/[address] Deven Jefferson, pain controlled Assessment & Plan (05/11/2023 9:12 AM EST): She underwent left knee arthroplasty on 09/17/[address] Deven Jefferson, pain controlled Assessment & Plan (06/27/2022 10:32 AM EST): She underwent left knee arthroplasty on 09/17/[address] Deven Jefferson, pain controlled. Moderate major depression, single episode 2021 Overview (05/11/2023): Exacerbated by self-isolation and two sisters passing from covid-19 Continue on fluoxetine 20mg daily. Two of her sisters from COVID this past year Assessment & Plan (06/26/2023 9:06 AM EST): Exacerbated by self-isolation and two sisters passing from covid-19 Continue on fluoxetine 20mg daily. Two of her sisters from COVID this past year Assessment & Plan (05/11/2023 9:14 AM EST): Exacerbated by self-isolation and two sisters passing from covid-19 Continue on fluoxetine 20mg daily. Two of her sisters from COVID this past year. Assessment & Plan (06/27/2022 10:36 AM EST): Exacerbated by self-isolation and two sisters passing from covid-19 Continue on fluoxetine 20mg daily. Two of her sisters from COVID this past year. Essential (primary) hypertension 12/11/2011 Overview (05/17/2024): Seen in ER for hypertensive urgency 03/16/24. Today, 03/30/24 reports stable BP's at home, BP in clinic at goal. - followed in [facility] HTN clinic -hydrochlorothiazide discontinued by [facility] 05/17/24 due to CrCl <30mL/min -continue atenolol 25 mg daily -valsartan 40 started 03/17/24, discontinue 03/30/24 -start Amlodipine 2.5 mg at night 03/30/24, increased by [facility] to 5mg once daily 05/17/24 -Importance of low-sodium diet and regular moderate physical activity discussed. -03/31/24 discussed with pharmacist that bump in Creatinine could be due to Valsartan, will discontinue and start Amlodipine 2.5mg at night and recheck Creatinine in 2 weeks. Assessment & Plan (03/30/2024 10:53 AM EDT): Seen in ER for hypertensive urgency 03/16/24 -continue HCTZ 25 mg -continue atenolol 25 mg daily -valsartan 40 started 03/17/24, discontinue 03/30/24 -start Amlodipine 2.5 mg at night 03/30/24 -Importance of low-sodium diet and regular moderate physical activity discussed. -referral to [facility] Drug Therapy [facility]agment Program with our PharmURI Hu placed 03/17/24 -03/31/24 discussed with pharmacist that bump in Creatinine could be due to Valsartan, will discontinue and start Amlodipine 2.5mg at night and recheck Creatinine in 2 weeks. Assessment & Plan (03/17/2024 1:50 PM EDT): Seen in ER for hypertensive urgency 03/16/24 -continue HCTZ 25 mg -continue atenolol 25 mg daily -valsartan 40 started 03/17/24 -Importance of low-sodium diet and regular moderate physical activity discussed. -referral to Collaborative Drug Therapy Managment Program with our PharmDURI placed 03/17/24 Assessment & Plan (06/26/2023 9:05 AM EST): Well controlled -continue HCTZ 25 mg -continue atenolol 25 mg daily -Importance of low-sodium diet and regular moderate physical activity discussed. Assessment & Plan (05/11/2023 9:12 AM EST): Well controlled -continue HCTZ 25 mg -continue atenolol 25 mg daily -Importance of low-sodium diet and regular moderate physical activity discussed. Assessment & Plan (06/27/2022 10:33 AM EST): Well controlled -continue HCTZ 25 mg -continue atenolol 25 mg daily -Importance of low-sodium diet and regular moderate physical activity discussed. Varicose veins of lower extremity 11/28/2011 Resolved Problems Problem Noted Date Diagnosed Date Resolved Date Preop examination 03/25/2024 04/20/2024 Assessment & Plan (03/25/2024 9:32 AM EDT): RCRI is 0 going for low risk procedure to be done under local anesthesia EKG obtained from hospital on 03/21/2024 HR 70, NSR,Qtc 398 ,no ischemic findings No contraindications for surgery ,well controlled BP in last week and here -advised pt to take her regular meds on day of procedure -avoid NSAIDS/ASA 7 days before procedure -this note to be faxed today to surgeon JAZMYNE (acute kidney injury) 03/25/2024 Assessment & Plan (03/25/2024 9:36 AM EDT): Denies symptoms ,seems recently started on valsartan ? That can cause raise in Cr -chem order today to monitor by PCP already -advised hydration -avoid NSAIDS as possible -advised to bring BP logs at next apt -states lately home BP is normal -pt has apt w PCP already scheduled for 03/30/2024 ,will f chem result then Physical exam 06/26/2023 04/20/2024 Overview (06/26/2023): -Normal growth and development. -Anticipatory guidance discussed. -Preventative care / harm reduction discussed. Assessment & Plan (06/26/2023 9:06 AM EST): -Normal growth and development. -Anticipatory guidance discussed. -Preventative care / harm reduction discussed. Shoulder joint pain 06/27/2022 04/20/20 Overview (03/17/2024): Uses acetaminophen, spairingly uses naproxen when pain is very bad. - Spoke about importance to avoid NSAID. -ordered XR 03/17/24 -Referred to Orthopedics 03/17/24 Assessment & Plan (03/17/2024 1:51 PM EDT): Uses acetaminophen, spairingly uses naproxen when pain is very bad. - Spoke about importance to avoid NSAID. -ordered XR 03/17/24 Assessment & Plan (06/26/2023 9:05 AM EST): Uses acetaminophen, spairingly uses naproxen when pain is very bad. - Spoke about importance to avoid NSAID. Assessment & Plan (06/30/2022 11:37 AM EST): Uses acetaminophen, spairingly uses naproxen when pain is very bad. - Spoke about importance to avoid NSAID. -Referral sent to PT 06/30/22. Dysuria 06/27/2022 04/20/2024 Constipation 06/27/2022 04/20/2024 Chronic low back pain 06/27/20222023 Assessment & Plan (03/17/2024 1:55 PM EDT): Likely musculoskeletal. Non-focal, normal motor exam without neurological deficits. No back pain red-flags: bowel/bladder incontinence, IVDU, urinary retention, saddle anesthesia, and significant motor deficits. -Recommend ibuprofen PRN -ordered lumbar spine XR 03/17/24 -Lifting precaution sand stretching reviewed. -ER precaution discussed. Assessment & Plan (06/26/2023 9:06 AM EST): -Trial of prednisone burst. C/W PRN Naproxen, tramadol, Voltaren gel, massage/heat -You will be referred to PT -Pt to seek medical attention for any saddle anesthesia, urinary and stool incontinence Assessment & Plan (05/11/2023 9:14 AM EST): -Trial of prednisone burst. C/W PRN Naproxen, tramadol, Voltaren gel, massage/heat -You will be referred to PT -Pt to seek medical attention for any saddle anesthesia, urinary and stool incontinence. Assessment & Plan (06/27/2022 10:36 AM EST): -Trial of prednisone burst. C/W PRN Naproxen, tramadol, Voltaren gel, massage/heat -You will be referred to PT -Pt to seek medical attention for any saddle anesthesia, urinary and stool incontinence. Primary localized osteoarthritis of left knee 06/27/1904/20/2024 Neck pain on left side 06/27/202204/20 Tear of meniscus of knee 03/01/2017 Rupture of anterior cruciate ligament 03/01/2017 04/20/2024 Knee pain 02/10/2017 04/20/2024 Encounters Date Type Department Care Team Description 07/20/2024 Telephone [facility] [address] [place] [address] Samantha Christiansen MA DNKA/Late Cancel (I spoke with the pt that the appointment is going to be cancel because provider is out. ALEXANDRA is going to call her with new appointment. ) 07/19/2024 Refill [facility] [address] [place] [address] Gerda Mc MD Allergic rhinitis, unspecified seasonality, unspecified trigger 07/12/2024 Refill [facility] [address] [place] [address] Gerda Mc MD Vitamin D deficiency 06/21/2024 Travel 06/15/2024 Refill [facility] [address] [place] [address] Gerda Mc MD Arthralgia of shoulder, unspecified laterality 05/20/2024 Patient Outreach [facility] [address] [place] [address] Gerda Mc MD Medicare Annual Wellness Visit Initial (AWV unscheduled) 05/17/2024 Orders Only [facility] [place] [place] [address] Gerda Mc MD 05/17/2024 Travel from Last 3 Months Immunizations Name Administration Dates Next Due Influenza High-dose Quadriva lent Preservative Free 05/11/2023,03/14/2021 Influenza injectable quadriv alent IIV4 with preservative 05/13/2017,02/21/2016 Influenza injectable quadriv alent preservative free 02/24/2020,04/19/2015 Influenza, High Dose Seasona l, Preservative Free 03/17/2024,03/31/2019,04/14/2018 Influenza, IIV3, injectable 03/01/2014,0 03/06/2011,02/13/2010,03/05 Influenza, Split (incl. dino fied surface antigen) 04/21/2013 Pfizer Covid-19 Vaccine 12+ 05/11/2023 Pneumococcal Conjugate PCV 13 04/24/2015 Pneumococcal Polysaccharide PPSV23 09/29/2011 RSV Bivalent 06/26/2023 TD (adult), 2 Lf tetanus tox oid, preservative free, adsorbed 10/09/2021 Tdap 09/29/2011 Zoster, Recombinant 10/09/2021 Zoster, live 10/08/2011 Social History Tobacco Use Types Packs/Day Years Used Date Smoking Tobacco: Never Smokeless Tobacco: Never Tobacco Cessation:Counseling Given: Not Answered Alcohol Use Standard Drinks/Week Comments Never 0 [...] Orientation Straight 04/07/2022 10 :14 AM EDT Last Filed Vital Signs Vital Sign Reading Time Taken Comments Blood Pressure 158/70 06/21/2024 1:07 PM EST Pulse 67 06/21/2024 1:07 PM EST Temperature 35.8 ??C (96.4 ??F) 03/30/2024 10:28 AM E DT Respiratory Rate 20 03/30/2024 10:28 AM EDT Oxygen Saturation 99% 03/30/2024 10:28 AM EDT Inhaled Oxygen Concentration - - Weight 82.6 kg (182 lb) 03/30/2024 10:28 AM EDT Height 160 cm (5' 3 ) 03/30/2024 10:28 AM EDT Body Mass Index 32.24 03/30/2024 10:28 AM EDT Plan of Treatment Upcoming Encounters Date Type Department Care Team (Late st Contact Info) Description 08/16/2024 1:00 PM EDT Medication Management [facility] [address] [place] [address] Jenny Gardner, PharmD [address] [place] [address] 08/31/2024 1:30 PM EDT Office Visit [facility] [address] [place] [address] Vijay Brandt, MARKS [address] [place] [address] Health Maintenance Due Date Last Done Comments Dental Oral Exam 1944 Dental Prophylaxis 1944 Dental X-Ray: Bitewings 1944 Dental X-Ray: Full Mouth 1944 Alcohol/Substance Use Screening 03/17/2025 03/17/2024 COVID-19 Vaccine ( season) 2025 05/11/2023, 11/26/2021, 04/24/2021, Additional history exists Postponed from 02/07/2024 (Patient Refused) Depression Screening 03/17/2025 03/17/2024, 06/30/19 SDOH Screening 03/17/2025 03/17/2024 Tobacco Screening 03/30/2025 03/30/2024 Lipid Panel 06/12/2028 06/12/2023, 03/19/2021 DTaP/Tdap/Td Vaccines (3 - Td or Tdap) 10/10/2031 10/09/2021, 09/29/2011 Pneumococcal Vaccine: 50+ Years Completed 04/24/2015, 09/29/2011 Zoster Vaccines Discontinued 10/09/2021, 10/08/2011 RSV Patients and Patients Aged 60 years or older Completed 06/26/2023 Influenza Vaccine Completed 03/17/2024, , 03/14/2021, Additional history exists HIB Vaccines Aged Out No longer eligi ble based on patient's age to complete this topic HPV Vaccines Aged Out No longer eligi ble based on patient's age to complete this topic Hepatitis A Vaccines Aged Out No long er eligible based on patient's age to complete this topic Hepatitis B Vaccines Aged Out No long er eligible based on patient's age to complete this topic IPV Vaccines Aged Out No longer eligi ble based on patient's age to complete this topic Meningococcal Vaccine Aged Out No cierra gabriel eligible based on patient's age to complete this topic RSV under 20 months Aged Out No longe r eligible based on patient's age to complete this topic Rotavirus Vaccines Aged Out No longer eligible based on patient's age to complete this topic Procedures Procedure Name Priority Date/Time Associated Diagnosis Comments BASIC METABOLIC PANEL Routine 05/17/2024 10:30 AM EST LIPID PANEL, STANDARD Routine 06/12/2023 9:58 AM EST Hypertension, essential from Last 3 Months or Most Recently Relevant to Health Maintenance Results * (ABNORMAL) Basic Metabolic Panel (05/17/2024 10:30 AM EST) Sodium 141 135 - 145 mmol/L [facility] Potassium 3.5 3.3 - 5.1 mmol/L [facility] Chloride 101 96 - 108 mmol/L [facility] Carbon Dioxide 31(H) 22 - 29 mmol/L [facility] Anion Gap 13 12 - 20 [facility] Urea Nitrogen (BUN) 24(H) 9 - 16 mg/dL [facility] Creatinine, Serum 1.53(H) 0.5 - 1.4 mg/dL [facility] Estimated Glomerular Filt Rate 33 [facility] Comment:Chronic Kidney Disea se: Estimated GFR < 60 mL/min/1.42b8Ljynws Kidney Disease: Estimated GFR < 15 mL/min/1.73m2 Glucose 111 60 - 115 mg/dL [facility] Calcium 9.2 8.4 - 10.2 mg/dL [facility] 05/17/2024 10:3 0 AM EST 05/17/2024 11:50 AM EST Gerda Mc MD LAB BLOOD ORDERABLES Final Result Performing Organization Address City/[facility] Co de Phone Number [facility] [address] [place] [phone] * Lipid Panel, Standard (06/12/2023 9:58 AM EST) Triglycerides 88 <150 mg/dL [facility] Comment:Desirable Triglyceri de: less than 150 mg/dLBorderline High Triglyceride 150-199 mg/dLHigh Triglyceride: 200-499 mg/dLVery High Triglyceride: greater than or equal to 5OO mg/dL Cholesterol 170 <200 mg/dL [facility] Comment:Desirable Cholestero l: less than 200 mg/dLBorderline High Cholesterol: 200-239 mg/dLHigh Cholesterol: greater than 239 mg/dL LDL Cholesterol Calculated 97 <100 mg/dL [facility] Comment:Desirable LDL: less than 100 mg/dLNear Optimal/Above Optimal LDL: 110- 129 mg/dLBorderline High LDL: 130-159 mg/dLHigh LDL: 160-189 mg/dLVery High LDL: greater than or equal to 190 mg/dL HDL Cholesterol 56 >40 mg/dL [facility] Comment:Desirable HDL: great er than 40 mg/dL Note: This HDL assay may give artificially low results in patients with liver disease. Blood Venous blood specimen / Unknown 06/12/2023 9:58 AM EST 06/12/2023 9:58 AM EST Gerda Mc MD LAB BLOOD ORDERABLES Final Result Performing Organization Address City/[facility]/ZIP Co de Phone Number [facility] [address] [phone] from Last 3 Months or Most Recently Relevant to Health Maintenance Insurance [place] [id number] HSN [facility] D[facility] - HSN FULL ([place]) [id number] Advance Directives Documents on File Type Date Recorded Patient Ballistics Tester Expl anation Power of Liability Analyst 03/17/2024 Health Car e Proxy 03/17/24 Power of Liability Analyst 06/30/2023 HealthCare Proxy 06/26/23 Care Teams Reliability Specialist Relationship Specialty Start Date End Date [place], MD Gerda [address] [place] [address] PCP - General Family Medicine 06/08/18 Jenny Gardner, MarianaD [address] [place] [address] Pharmacist Internal Medicine 04/13/24
--- OUTSIDE RECORDS SUMMARY | 2024-07-29 09:58 | XMS_ITS | Encounter Summary ---
Author Organization [employer] Address [address] [place] [address] Care Team Providers Care Natural Gas Shothole Driller Name Role Phone Gerda Mc MD Primary Care Provider + [phone] Jenny Gardner PharmD Unavailable [phone] Reason for Visit * Reason Onset Date Comments DNKA/Late Cancel 07/20/2024 I spoke with e pt that the appointment is going to be cancel because provider is out. ALEXANDRA is going to call her with new appointment. Encounter Details Date Type Department Care Team ([facility] Contact Info) Description 07/20/2024 Telephone [facility] [address] [place], [place] [phone] Samantha Christiansen MA DNKA/Late Cancel (I spoke with the pt that the appointment is going to be cancel because provider is out. ALEXANDRA is going to call her with new appointment. ) Social History Tobacco Use Types Packs/Day Years [...] AM EDT documented as of this encounter Miscellaneous Notes * Telephone Encounter - Samantha Christiansen MA - 07/20/2024 9:50 AM EST I spoke with the pt that the appointment is going to be cancel because provider is out. ALEXANDRA is goingto call her with new appointment. documented in this encounter Plan of Treatment Upcoming Encounters Date Type Department Care Team (Late st Contact Info) Description 08/16/2024 1:00 PM EDT Medication Management [facility] [address] [place] [address] Jenny Gardner, PharmD [address] [place] [address] 08/31/2024 1:30 PM EDT Office Visit [facility] [address] [place] [address] Vijay Brandt DDS [address] [place] [address] documented as of this encounter Visit Diagnoses Not on filedocumented in this encounter Additional Health Concerns Assessment Noted Time PHQ-9 Depression Total Score: 4 06/30/19 23 11:18 AM EST documented as of this encounter Care Teams Natural Gas Shothole Driller Relationship Specialty Start Date End Date Gerda Mc MD [address] [place] [address] PCP - General Family Medicine 06/08/18 Jenny Gardner, MarianaD [address] [place] [address] Pharmacist Internal Medicine 04/13/24 documented as of this encounter
--- OUTSIDE RECORDS SUMMARY | 2024-07-29 09:58 | XMS_ITS | Encounter Summary ---
Author Organization [facility] Address [address] [place] [address] Care Team Providers Care Accounting Assistant Name Role Phone Gerda Mc MD Primary Care Provider [phone]- [phone] Jenny Gardner PharmD Unavailable [phone] Encounter Details Date Type Department Care Team ([facility] Contact Info) Description 08/07/2022 Abstract [facility] [address] [place] [address] Dakota Jose, DMD [address] [place] [address] Social History Tobacco Use Types Packs/Day Years Used Date Smoking Tobacco: Never Smokeless Tobacco: Never Alcohol Use Standard Drinks/Week Comments Never 0 (1 standard drink = 0.6 oz pur e alcohol) Depression Answer Date Recorded Patient Health Questionnaire-9 Score 4 06/30/2022 Depression Answer Date Recorded Patient Health Questionnaire-2 Score 2 06/30/2022 Comments Unknown Sex and Gender Information Value Date Recorded Sex Assigned at Female 04/07/2022 10:14 AM EDT Legal Sex Female 10:14 AM EDT Gender Identity Female 04/07/2022 10:14 AM EDT Sexual Orientation Straight 04/07/2022 10 :14 AM EDT COVID-19 Exposure Response Date Recorded In the last 10 days, have yo u been in contact with someone who was confirmed or suspected to have Coronavirus/COVID-19? No / Unsure 08/08/2022 10:24 AM EST documented as of this encounter Plan of Treatment Upcoming Encounters Date Type Department Care Team (Late Contact Info) Description 08/16/2024 1:00 PM EDT Medication Management [facility] [address] [place] [address] Jenny Gardner, PharmD [address] [place] [address] 08/31/2024 1:30 PM EDT Office Visit [facility] [address] [place] [address] Vijay Brandt DDS [address] [place] [address] documented as of this encounter Visit Diagnoses Not on filedocumented in this encounter Additional Health Concerns Assessment Noted Time PHQ-9 Depression Total Score: 4 06/30/19 23 11:18 AM EST documented as of this encounter Care Teams Accounting Assistant Relationship Specialty Start Date End Date Gerda cM MD [address] [place] [phone] PCP - General Family Medicine 06/08/18 Jenny Gardner, PharmD [address] [place] [phone] Pharmacist Internal Medicine 04/13/24 documented as of this encounter
--- OUTSIDE RECORDS SUMMARY | 2024-07-29 09:58 | XMS_ITS | Encounter Summary ---
Author Organization [facility] Address [address] [place] [address] Care Team Providers Care Dry Ice Maker Name Role Phone Gerda Mc MD Primary Care Provider + [phone] Jenny Gardner PharmD Unavailable [phone] Encounter Details Date Type Department Care Team ([facility] Contact Info) Description 06/24/2022 Abstract [facility] [address] [place] [phone] Gerda Mc MD [address] [place] [phone] Social History Tobacco Use Types Packs/Day Years Used Date Smoking Tobacco: Never Smokeless Tobacco: Never Alcohol Use Standard Drinks/Week Comments Never 0 (1 standard drink = 0.6 oz pur e alcohol) Comments Unknown Sex and Gender Information Value [...] suspected to have Coronavirus/COVID-19? No / Unsure 06/19/2022 9:53 AM EST documented as of this encounter Plan of Treatment Upcoming Encounters Date Type Department Care Team ([facility] Contact Info) Description 08/16/2024 1:00 PM EDT Medication Management [facility] [address] [place] [phone] Jenny Gardner, PharmD [address] [place] [address] 08/31/2024 1:30 PM EDT Office Visit [facility] [address] [place] [address] Vijay Brandt, DDS [address] [place] [address] documented as of this encounter Procedures Procedure Name Priority Date/Time Associated Diagnosis Comments MAMMOGRAPHY Routine 02/26/2022 COLONOSCOPY Routine 11/18/2011 documented in this encounter Results * Mammography (02/26/2022) Mammogram BIRADS 1 Anatomical Region Laterality Modality Other Historical Provider HEALTH MAINTENANCE Final Result * Colonoscopy (11/18/2011) Colonoscopy Dr. Mg us Historical Provider HEALTH MAINTENANCE Final Result documented in this encounter Visit Diagnoses Not on filedocumented in this encounter Care Teams Dry Ice Maker Relationship Specialty Start Date End Date Gerda Mc MD [address] [place] [address] PCP - General Family Medicine 06/08/18 Jenny Gardner, PharmD [address] [place] [phone] Pharmacist Internal Medicine 04/13/24 documented as of this encounter
--- OUTSIDE RECORDS SUMMARY | 2024-07-29 09:58 | XMS_ITS | Encounter Summary ---
Author Organization [facility] Address [address] [place] [address] Care Team Providers Care Oracle Hyperion Consultant Name Role Phone Gerda Mc MD Primary Care Provider +- [phone] Jenny Gardner PharmD Unavailable [phone]- [phone] Reason for Visit * Reason Onset Date Comments Appointment 07/29/2022 Patient called i n stating appt was cancelled by office and was instructed to call back for rescheduling DR Encounter Details Date Type Department Care Team (Late st Contact Info) Description 07/29/[address] [facility] [address] [place], [place] [phone] Dakota Jose, GIULIANA [address] [place], [place] [phone] Appointment (Patient called in stating appt was cancelled by office and was instructed to call back for rescheduling DR) Social History Tobacco Use Types Packs/Day Years [...] suspected to have Coronavirus/COVID-19? No / Unsure 07/15/2022 2:11 PM EST documented as of this encounter Miscellaneous Notes * Telephone Encounter - Laura Shahs - 07/29/2022 10:28 AM EST Patient called in stating appt was cancelled by office and was instructed to call back for rescheduling DR documented in this encounter Plan of Treatment Upcoming Encounters Date Type Department Care Team (Late st Contact Info) Description 08/16/2024 1:[address] Medication [address] [facility] [address] [place] [address] Jenny Gardner PharmD [address] [place] [address] 08/31/2024 1:30 PM EDT Office Visit [facility] [address] [place] [address] Vijay Brandt DDS [address] [place] [address] documented as of this encounter Visit Diagnoses Not on filedocumented in this encounter Additional Health Concerns Assessment Noted Time PHQ-9 Depression Total Score: 4 06/30/19 23 11:18 AM EST documented as of this encounter Care Teams Oracle Hyperion Consultant Relationship Specialty Start Date End Date Gerda Mc MD [address] [place] [phone] PCP - General Family Medicine 06/08/18 Jenny Gardner PharmD [address] [place] [phone] Pharmacist Internal Medicine 04/13/24 documented as of this encounter
--- OUTSIDE RECORDS SUMMARY | 2024-07-29 09:58 | XMS_ITS | Encounter Summary ---
Author Organization [employer] Address [address] [place] [address] Care Team Providers Care Testing Analyst Name Role Phone Gerda Mc MD Primary Care Provider +- [phone] Jenny Gardner PharmD Unavailable [phone] Encounter Details Date Type Department Care Team ([facility] st Contact Info) Description 03/25/2024 Orders Only [facility] [address] [place], [place] [phone] Gerda Mc MD [address] [place], [place] [phone] Elevated serum creatinine (Primary Dx); Routine screening for STI (sexually transmitted infection); Encounter for hepatitis C screening test for low risk patient Social History Tobacco Use Types Packs/Day Years [...] Description 08/16/2024 1:00 PM EDT Medication Management [facility] [address] [place] [address] Jenny Gardner, PharmD [address] [place] [address] 08/31/2024 1:30 PM EDT Office Visit [facility] [address] [place] [address] Vijay Brandt DDS [address] [place] [address] documented as of this encounter Procedures Procedure Name Priority Date/Time Associated Diagnosis Comments HEPATITIS C AB W/REFL TO HCV RNA, QN, PCR Routine 03/28/2024 12:30 PM EDT Encounter for hepatitis C screening test for low risk patient BASIC METABOLIC PANEL Routine 03/28/2024 12:30 PM EDT Elevated serum creatinine documented in this encounter Results * (ABNORMAL) Basic Metabolic Panel (03/28/2024 12:30 PM EDT) Sodium 140 135 - 145 mmol/L [facility] Potassium 3.5 3.3 - 5.1 mmol/L [facility] Chloride 102 96 - 108 mmol/L [facility] Carbon Dioxide 29 22 - 29 mmol/L [facility] Anion Gap 13 12 - 20 [facility] Urea Nitrogen (BUN) 34(H) 9 - 16 mg/dL [facility] Creatinine, Serum 1.84(H) 0.5 - 1.4 mg/dL [facility] Estimated Glomerular Filt Rate 26 [facility] Comment:NOTE: For -Am erican individuals, multiply the result by 1.210.Chronic Kidney Disease: Estimated GFR < 60 mL/min/1.41g3Ervnke Kidney Disease: Estimated GFR < 15 mL/min/1.73m2 Glucose 113 60 - 115 mg/dL [facility] Calcium 9.3 8.4 - 10.2 mg/dL [facility] Blood Venous blood specimen / Unknown 03/28/2024 12:30 PM EDT 03/28/2024 12:34 PM EDT Gerda Mc MD LAB BLOOD ORDERABLES Final Result Performing Organization Address [facility]/ZIP Co de Phone Number [facility] [address] [place] [phone] * Hepatitis C Antibody with Reflex to HCV, RNA, Quantitative, Real-Time PCR (03/28/2024 12:30 PM EDT) Hepatitis C Antibody Nonreactive Nonreactive [facility] Comment:Antibodies to HCV no t detected; does not exclude early acuteHCV infection. Blood Venous blood specimen / Unknown 03/28/2024 12:30 PM EDT 03/28/2024 12:34 PM EDT Gerda Mc MD LAB BLOOD ORDERABLES Final Result Performing Organization Address [facility]/ZIP Co de Phone Number [facility] [address] [place] [phone] documented in this encounter Visit Diagnoses Diagnosis Elevated serum creatinine- Primary Other nonspecific findings on examination of blood Routine screening for STI (sexually transmitted infection) Screening examination for venereal disease Encounter for hepatitis C screening test for low risk patient documented in this encounter Additional Health Concerns Assessment Noted Time PHQ-9 Depression Total Score: 4 06/30/19 23 11:18 AM EST documented as of this encounter Care Teams Testing Analyst Relationship Specialty Start Date End Date Gerda Mc MD [address] [place] [address] PCP - General Family Medicine 06/08/18 Jenny Gardner PharmD [address] [place] [phone] Pharmacist Internal Medicine 04/13/24 documented as of this encounter
[2024-07-29 10:49] LABS: Anion Gap 11 (12-20); Blood Urea Nitrogen 26 mg/dL (9-16); Calcium 9.1 mg/dL (8.4-10.2); Carbon Dioxide 26 mmol/L (22-29); Chloride 109 mmol/L (96-108); Cholesterol 148 mg/dL (<200); Estimated Glomerular Filt Rate 37; Glucose Random 102 mg/dL (60-115); HDL Cholesterol 53 mg/dL (>40); LDL Cholesterol Calculated 81 mg/dL (<100); Potassium 3.9 mmol/L (3.3-5.1); Sodium 142 mmol/L (135-145); Triglycerides 71 mg/dL (<150)
== END 2024-07-29 09:26 | disposition home or self-care (01) ==
LOC: HO.LAB 09:25
PROVIDERS: PCP Family Medicine; Visit Provider Family Medicine
DX: Z00.00 Encounter for general adult medical examination without abnormal findings (principal); I10 Essential (primary) hypertension
CPT/HCPCS: 36415; 80048; 80061

== ENCOUNTER 2025-02-16 09:37 | Outpatient (REF) | payer MEDICARE, OTHER, SELFPAY ==
--- NOTE | ~2025-02-16 | XR_ITS ---
EXAMINATION: XR SHOULDER, RIGHT CLINICAL INFORMATION: pain COMPARISON: Correlated to chest x-ray dated February 23, 2020.] Shoulder x-ray dated September 01, 2011 is not available on PACS. TECHNIQUE: AP external rotation, Grashey, scapular Y, and axillary views of the right shoulder. FINDINGS: There is subchondral cyst formation and joint space narrowing and sclerosis along the articular surface involving the acromioclavicular joint and acromiohumeral joints. There is upward position of the clavicle with respect to the acromion. There is a focal 9 mm calcification in the soft tissues adjacent to the lateral aspect of the humeral neck. There is subchondral cyst formation in the glenoid fossa of the scapula. No acute cortical disruption or malalignment. XR/XR shoulder RT min 2V IMPRESSION: Concerning rotator cuff tendon tear likely chronic with associated the subluxation, acromioclavicular joint. Degenerative changes, moderate to severe, right shoulder. Synovial chondromatosis. Electronically signed by: George Kaur MD 02/16/2025 10:04 AM EDT
--- OUTSIDE RECORDS SUMMARY | 2025-02-16 09:30 | XMS_ITS | Encounter Summary ---
Author Organization [employer] Address [address] [place] [address] Care Team Providers Care Spinning Operator Name Role Phone Gerda Mc MD Primary Care Provider [phone] Alfonso Doan MD Unavailable [phone] Reason for Referral * Medications - Closed Specialty Diagnoses / Procedures Referred By Contac t Referred To Contact Diagnoses Acute pain of right shoulder Tiesha Anthony MD [address] [place] [address] Phone: tel: fax: Referral ID Status Reason Start Date Expiration Date Visits Re quested Visits Authorized [id number] Closed 1 1 Encounter Details Date Type Department Care Team (Latest Contact Info) Description 02/16/2025 9:30 AM EDT Office Visit [facility] [address] [place], [place] [phone] Tiesha Anthony MD [address] [place] [address] [phone] Acute pain of right shoulder (Primary Dx); Essential (primary) hypertension; CKD (chronic kidney disease) stage 4, GFR 15-29 ml/min (CMS/HCC); Degeneration of intervertebral disc of lumbar region with discogenic back pain Social History Tobacco Use Types Packs/Day Years [...] AM EDT documented as of this encounter Last Filed Vital Signs Vital Sign Reading Time Taken Comments Blood Pressure 124/60 02/16/2025 9:16 AM EDT Pulse 71 02/16/2025 9:16 AM EDT Temperature 35.6 C (96.1 F) 02/16/2025 9:16 AM EDT Respiratory Rate 15 02/16/2025 9:16 AM EDT Oxygen Saturation 92% 02/16/2025 9:16 AM EDT Inhaled Oxygen Concentration - - Weight 79.7 kg (175 lb 9.6 oz) 02/16/2025 9:16 A M EDT Height 160 cm (5' 3 ) 02/16/2025 9:16 AM EDT Body Mass Index 31.11 02/16/2025 9:16 AM EDT documented in this encounter Progress Notes * Tiesha Anthony MD - 02/16/2025 9:30 AM EDT eSubjective Kimmie Frey is a 79 y.o. female who has hypertension, lumbar DDD, and CKD4, and patient presents for follow up of chronic conditions. Background: Problem List[1] Last PCP visit on 11/10/2024. Patient reported low back pain in the morning. Patient stated that it improves with acetaminophen. Her x-ray in March 2024 showed multilevel degenerative disc disease and facet arthropathy. X-ray of Left shoulder in Mar 2024 1. Moderate acromioclavicular osteoarthritis with moderate lateral subacromial spurring. 2. Mild glenohumeral osteoarthritis. Mild glenohumeral chondrocalcinosis. Patient called our clinic yesterday. Triage note is documented as the following: Reports having upper back and flank pain . Pt also having right shoulder pain. Pt states onset of pain x 3 days. Pt denies any injury or fall. No swelling , redness or rash. Pt is using lidocaine patches. Pt used Naproxen with mild relief. Pt denies any abd pain or urianry sx. No CP or SOB. Pt advised of disposition, agrees to sick onsite tomorrow with team provider. Today: Patient reports severe right shoulder pain for 2 weeks. No injury. Anterior. Constant. Pain is worse with movement. Taking acetaminophen and naproxen (patient is aware that she is not supposed take NSAID), which give marginal relief (naproxen gave a better relief). No abdominal pain. Right-handed. She declines PT and ortho referral. Not interested in invasive procedure. Review of Systems Constitutional: Negative for activity change, appetite change and fever. Respiratory: Negative for shortness of breath. Cardiovascular: Negative for chest pain. Objective Vitals: 02/16/25 0916 BP: 124/60 Pulse: 71 Resp: 15 Temp: 96.1 ??F (35.6 ??C) TempSrc: Temporal SpO2: 92% Weight: 175 lb 9.6 oz (79.7 kg) Height: 5' 3 (1.6 m) Physical Exam Constitutional: General: She is not in acute distress. Appearance: Normal appearance. She is not ill-appearing. HENT: Head: Normocephalic and atraumatic. Mouth/Throat: Mouth: Mucous membranes are moist. Eyes: Extraocular Movements: Extraocular movements intact. Pupils: Pupils are equal, round, and reactive to light. Cardiovascular: Rate and Rhythm: Normal rate and regular rhythm. Heart sounds: No murmur heard. Pulmonary: Effort: Pulmonary effort is normal. No respiratory distress. Breath sounds: Normal breath sounds. No wheezing or rhonchi. Musculoskeletal: Right shoulder: Tenderness present. No deformity. Decreased range of motion. Normal strength. Normal pulse. Comments: No skin discoloration. Tender at the head of biceps. Painful ROM, yet fairly preserved ROM. Positive impingement. Skin: General: Skin is warm. Neurological: Mental Status: She is alert. Mental status is at baseline. Psychiatric: Mood and Affect: Mood normal. Assessment/Plan Problem List Items Addressed This Visit Essential (primary) hypertension BP at goal today Last PCP's note as following: -Blood pressure is at goal - continue lifestyle modifications: importance of low-sodium diet and regular moderate physical activity discussed. - followed in [facility] HTN clinic - current medications: - continue atenolol 25 mg daily - continue Amlodipine 10 mg - medication hx: - seen in ER for hypertensive urgency 03/16/24. 03/30/24 reports stable BP's at home, BP in clinic at goal. - hydrochlorothiazide discontinued by [facility] 05/17/24 due to CrCl <30mL/min - valsartan 40 started 03/17/24, discontinue 03/30/24 - start Amlodipine 2.5 mg at night 03/30/24, increased by [facility] to 5mg once daily 05/17/24 - 03/31/24 discussed with pharmacist that bump in Creatinine could be due to Valsartan, will discontinue and start Amlodipine 2.5mg at night and recheck Creatinine in 2 weeks. - saw [facility] 05/17/24 increased amlodipine to 5mg once daily and discontinue hydrochlorothiazide due to CrCl <30mL/min. ARB previously discontinued 03/30/24 due to noted increase in SCR; repeat BMP ordered today. Message sent to PCP that if remains elevated, may consider referral to nephrology. - 06/21/24 [facility] increased amlodipine to 10mg once daily. - 10/10/24 CD Patient BP WNL for 2 consecutive visits and does not warrant further follow up in [facility] clinic; encouraged patient to continue close follow up with PCP. If further follow up is needed, please send a new referral. Degeneration of lumbar intervertebral disc CKD (chronic kidney disease) stage 4, GFR 15-29 ml/min (CMS/HCC) Right shoulder pain - Primary - most likely tendinitis and osteoarthritis, unlikely to be a referred pain - evaluate with X-ray - continue APAP prn for mild / moderate pain - patient declined PT or ortho referral for injection - Lidocaine patch, one for shoulder one for back - add diclofenac gel - appropriate rest (don't carry a heavy bag) and activity modification - emphasized that NSAID is contraindicated with her renal fucntion Relevant Medications lidocaine (Lidoderm) 5 % patch Diclofenac Sodium 1 % gel Other Relevant Orders XR Shoulder 2+ Views Right Allergies[2] Current Outpatient Medications Medication Instructions acetaminophen (Tylenol) 325 MG tablet TAKE 2 TABLETS BY MOUTH EVERY 6 HOURS NEEDED FOR PAIN OF KNEE amLODIPine (Norvasc) 10 MG tablet Take 1 tablet by mouth once daily atenolol (Tenormin) 25 MG tablet take 1 tablet (25MG) by oral route every day Strength: 25 mg bisacodyl (DULCOLAX) 5 mg, Oral, Daily PRN, PT purchasing OTC Blood Pressure kit Use as directed chlorhexidine (Peridex) 0.12 % solution Swish 15 mL morning and night for 1 minute. Spit, do not swallow. Do not eat or drink for 30 minutes following use. cholecalciferol (VITAMIN D-3) 25 mcg, Oral, Every morning Diclofenac Sodium 1 % gel Apply to affected area once or twice daily lidocaine (Lidoderm) 5 % patch 1 patch, Apply externally, Daily, Remove & discard patch within 12 hours or as directed by . loratadine (Claritin) 10 MG tablet TAKE 1 TABLET BY MOUTH EVERY DAY FOR ALLERGIES senna (SENOKOT) 8.6 mg, Oral, Nightly Follow-up: as scheduled with PCP or sooner if any problem arises. [1] Patient Active Problem List Diagnosis S/P total knee arthroplasty Essential (primary) hypertension Constipation Moderate major depression, single episode (CMS/HCC) Varicose veins of lower extremity Degeneration of lumbar intervertebral disc Other specified health status Left shoulder pain CKD (chronic kidney disease) stage 4, GFR 15-29 ml/min (CMS/HCC) Partially edentulous maxilla Varicose veins of ankle Pain, dental Periodontal disease Bilateral swelling of feet and ankles Right shoulder pain [2] Allergies Allergen Reactions George Inhibitors Cough documented in this encounter Miscellaneous Notes * Assessment & Plan Note - Tiesha Anthony MD - 02/16/2025 9:44 AM EDTAssociated Problem(s): Right shoulder pain - most likely tendinitis and osteoarthritis, unlikely to be a referred pain - evaluate with X-ray - continue APAP prn for mild / moderate pain - patient declined PT or ortho referral for injection - Lidocaine patch, one for shoulder one for back - add diclofenac gel - appropriate rest (don't carry a heavy bag) and activity modification - emphasized that NSAID is contraindicated with her renal fucntion * Assessment & Plan Note - Tiesha Anthony MD - 02/16/2025 9:40 AM EDTAssociated Problem(s): Essential (primary) hypertension -Blood pressure is at goal - continue lifestyle modifications: importance of low-sodium diet and regular moderate physical activity discussed. - followed in [facility] HTN clinic - current medications: - continue atenolol 25 mg daily - continue Amlodipine 10 mg - medication hx: - seen in ER for hypertensive urgency 03/16/24. 03/30/24 reports stable BP's at home, BP in clinic at goal. - hydrochlorothiazide discontinued by [facility] 05/17/24 due to CrCl <30mL/min - valsartan 40 started 03/17/24, discontinue 03/30/24 - start Amlodipine 2.5 mg at night 03/30/24, increased by [facility] to 5mg once daily 05/17/24 - 03/31/24 discussed with pharmacist that bump in Creatinine could be due to Valsartan, will discontinue and start Amlodipine 2.5mg at night and recheck Creatinine in 2 weeks. - saw [facility] 05/17/24 increased amlodipine to 5mg once daily and discontinue hydrochlorothiazide due to CrCl <30mL/min. ARB previously discontinued 03/30/24 due to noted increase in SCR; repeat BMP ordered today. Message sent to PCP that if remains elevated, may consider referral to nephrology. - 06/21/24 [facility] increased amlodipine to 10mg once daily. - 10/10/24 CD[facility] Patient BP WNL for 2 consecutive visits and does not warrant further follow up in [facility] clinic; encouraged patient to continue close follow up with PCP. If further follow up is needed, please send a new referral. documented in this encounter Plan of Treatment Upcoming Encounters Date Type Department Care Team (Late st Contact Info) Description 02/22/2025 2:30 PM EDT Office Visit [facility] [address] [place], [place] [phone] Dakota Jose, DMD [address] [place] [address] documented as of this encounter Procedures Procedure Name Priority Date/Time Associated Diagnosis Comments XR SHOULDER 2+ VIEWS RIGHT Routine 02/16/2025 9:57 AM EDT Acute pain of right shoulder documented in this encounter Results * XR Shoulder 2+ Views Right (02/16/2025 9:57 AM EDT) Anatomical Region Laterality Modality Upper Extremities, Shoulder Right Radi ographic Imaging 02/16/2025 9:57 AM EDT Narrative 02/16/2025 10:07 AM EDT [address] [address] XRay Report Signed Patient: Kimmie Martinez MR #: [id number] : 1945 Acct:[id number] Age/Sex: 79 / F ADM Date: 02/16/25 Loc: HO.HHX Attending Dr: Tiesha Anthony MD Ordering Physician: Tiesha Anthony MD Date of Service: 02/16/25 Procedure(s): XR shoulder RT min 2V Accession Number(s): [id number] cc: Gerda Mc MD; Tiesha Anthony MD Reason for Exam: pain EXAMINATION: XR SHOULDER, RIGHT CLINICAL INFORMATION: pain COMPARISON: Correlated to chest x-ray dated February 23, 2020.] Shoulder x-ray dated September 01, 2011 is not available on PACS. TECHNIQUE: AP external rotation, Grashey, scapular Y, and axillary views of the right shoulder. FINDINGS: There is subchondral cyst formation and joint space narrowing and sclerosis along the articular surface involving the acromioclavicular joint and acromiohumeral joints. There is upward position of the clavicle with respect to the acromion. There is a focal 9 mm calcification in the soft tissues adjacent to the lateral aspect of the humeral neck. There is subchondral cyst formation in the glenoid fossa of the scapula. No acute cortical disruption or malalignment. XR/XR shoulder RT min 2V IMPRESSION: Concerning rotator cuff tendon tear likely chronic with associated the subluxation, acromioclavicular joint. Degenerative changes, moderate to severe, right shoulder. Synovial chondromatosis. Electronically signed by: George Kaur MD 02/16/2025 10:04 AM EDT RP Dictated By: George Bertrand MD Signed By: <Electronically signed by George Vega MD in OV> 02/16/25 1004 DD/ 0957 TD/TT: 02/16/25 0958 Advertising Specialist: Procedure Note Donotuseinterpreter, Image - 02/16/[address] [address] XRay Report Signed Patient: Kimmie MartinezMR #: [id number] : 5Acct:[id number] Age/Sex: 79 / FADM Date: 02/16/25 Loc: HO.HHCX Attending Dr: Tiesha Anthony MD Ordering Physician: Tiesha Anthony MD Date of Service: 02/16/25 Procedure(s): XR shoulder RT min 2V Accession Number(s): [id number] cc: Gerda Mc MD; Tiesha Anthony MD Reason for Exam: pain EXAMINATION: XR SHOULDER, RIGHT CLINICAL INFORMATION: pain COMPARISON: Correlated to chest x-ray dated February 23, 2020.] Shoulder x-ray dated September 01, 2011 is not available on PACS. TECHNIQUE: AP external rotation, Grashey, scapular Y, and axillary views of the right shoulder. FINDINGS: There is subchondral cyst formation and joint space narrowing and sclerosis along the articular surface involving the acromioclavicular joint and acromiohumeral joints. There is upward position of the clavicle with respect to the acromion. There is a focal 9 mm calcification in the soft tissues adjacent to the lateral aspect of the humeral neck. There is subchondral cyst formation in the glenoid fossa of the scapula. No acute cortical disruption or malalignment. XR/XR shoulder RT min 2V IMPRESSION: Concerning rotator cuff tendon tear likely chronic with associated the subluxation, acromioclavicular joint. Degenerative changes, moderate to severe, right shoulder. Synovial chondromatosis. Electronically signed by: George Kaur MD 02/16/2025 10:04 AM EDT RP Dictated By: George Bertrand MD Signed By: <Electronically signed by George Vega MDin OV> 02/16/25 1004 DD/ 0957 TD/TT: 02/16/25 0958 Advertising Specialist: Tiesha Anthony MD IMG XR PROCEDURES Final Result documented in this encounter Visit Diagnoses Diagnosis Acute pain of right shoulder- Primary Essential (primary) hypertension Unspecified essential hypertension CKD (chronic kidney disease) stage 4, GFR 15-29 ml/min ([facility]) Chronic kidney disease, Stage IV (severe) Degeneration of intervertebral disc of lumbar region with discogenic back pain documented in this encounter Additional Health Concerns Assessment Noted Time PHQ-9 Depression Total Score: 4 06/30/19 23 11:18 AM EST documented as of this encounter Care Teams Spinning Operator Relationship Specialty Start Date End Date Gerda Mc MD [address] [place] [phone] PCP - General Family Medicine 06/08/18 Alfonso Doan MD [address] [place] [address] [place] [address] Ophthalmology 11/23/24 documented as of this encounter
--- OUTSIDE RECORDS SUMMARY | 2025-02-16 11:16 | XMS_ITS | Encounter Summary ---
Author Organization [facility] Address [address] 7t [place] [address] Care Team Providers Care Agricultural Engineering Teacher Name Role Phone Alexandro Gerda SOLIS Primary Care Provider +- [phone] Jenny Gardner PharmD Unavailable Alfonso Doan MD Unavailable [phone] Encounter Details Date Type Department Care Team ([facility] Contact Info) Description 08/07/[address] [facility]ULT [facility] [address] [place] [address] Dakota Jose, DMD [address] [place] [address] Social History Tobacco Use Types Packs/Day Years [...] Department Care Team (Late Contact Info) Description 02/22/2025 2:30 PM EDT Office Visit [facility] [address] [place] [address] Dakota Jose, DMD [address] [place] [address] documented as of this encounter Visit Diagnoses Not on filedocumented in this encounter Additional Health Concerns Assessment Noted Time PHQ-9 Depression Total Score: 4 06/30/19 23 11:18 AM EST documented as of this encounter Care Teams Agricultural Engineering Teacher Relationship Specialty Start Date End Date Gerda Mc MD [address] [place] [address] PCP - General Family Medicine 06/08/18 Jenny Gardner, MarianaD [address] [place] [address] Pharmacist Internal Medicine 04/13/24 10/10/24 Alfonso Doan MD [address] [place] [address] [address] [place] [address] Ophthalmology 11/23/24 documented as of this encounter
--- OUTSIDE RECORDS SUMMARY | 2025-02-16 11:16 | XMS_ITS | Encounter Summary ---
Author Organization [employer] Address [address] [place] [address] Care Team Providers Care Bottoming Room Supervisor Name Role Phone Gerda Mc MD Primary Care Provider [phone] Alfonso Doan MD Unavailable [phone] Reason for Visit * Reason Comments Med Refill Encounter Details Date Type Department Care Team ([facility] Contact Info) Description 10/20/2024 Refill [facility] [address] [place] [address] Gerda Mc MD [address] [place] [address] Arthralgia of shoulder, unspecified laterality Social History [...] Description 02/22/2025 2:30 PM EDT Office Visit [facility] [address] [place] [address] Dakota Jose, DMD [address] [place] [address] documented as of this encounter Visit Diagnoses Diagnosis Arthralgia of shoulder, unspecified laterality documented in this encounter Additional Health Concerns Assessment Noted Time PHQ-9 Depression Total Score: 4 06/30/19 23 11:18 AM EST documented as of this encounter Care Teams Bottoming Room Supervisor Relationship Specialty Start Date End Date Gerda Mc MD [address] [place] [address] PCP - General Family Medicine 06/08/18 Alfonso Doan MD [address] [facility] [address] [place] [address] Ophthalmology 11/23/24 documented as of this encounter
--- OUTSIDE RECORDS SUMMARY | 2025-02-16 11:16 | XMS_ITS | Encounter Summary ---
Author Organization [facility] Address [address] [facility] [address] [place] [address] Care Team Providers Care Cushion Gum Applicator Name Role Phone Gerda Mc MD Primary Care Provider [phone]- [phone] Jenny Gardner PharmD Unavailable Alfonso Doan MD Unavailable [phone] Encounter Details Date Type Department Care Team ([facility] Contact Info) Description 06/24/2022 Abstract [facility] [address] [place] [address] Gerda Mc MD [address] [place] [address] Social History Tobacco Use Types Packs/Day Years [...] Upcoming Encounters Date Type Department Care Team ([facility] Contact Info) Description 02/22/2025 2:30 PM EDT Office Visit [facility] ADULT DENT[facility] [address] [place] [address] Dakota Jose, DMD [address] [place] [address] documented as of this encounter Procedures Procedure Name Priority Date/Time Associated Diagnosis Comments MAMMOGRAPHY Routine 02/26/2022 COLONOSCOPY Routine 11/18/2011 documented in this encounter Results * Mammography (02/26/2022) Mammogram BIRADS 1 Anatomical Region Laterality Modality Other us Historical Provider HEALTH MAINTENANCE Final Result * Colonoscopy (11/18/2011) Colonoscopy Dr. Mg us Historical Provider HEALTH MAINTENANCE Final Result documented in this encounter Visit Diagnoses Not on filedocumented in this encounter Care Teams Cushion Gum Applicator Relationship Specialty Start Date End Date Gerda Mc MD [address] [place] [address] PCP - General Family Medicine 06/08/18 Jenny Gardner, MarianaD [address] [place] [address] Pharmacist Internal Medicine 04/13/24 10/10/24 Alfonso Doan MD [address] [place] [address] [address] [place] [address] Ophthalmology 11/23/24 documented as of this encounter
--- OUTSIDE RECORDS SUMMARY | 2025-02-16 11:16 | XMS_ITS | Encounter Summary ---
Author Organization [employer] Address [address] [place] [address] Care Team Providers Care Customer Care Team Coach Name Role Phone Gerda Mc MD Primary Care Provider [phone] Alfonso Doan MD Unavailable [phone] Encounter Details Date Type Department Care Team (Latest Contact Info) Description 02/16/2025 Travel Social History Tobacco Use Types Packs/Day Years [...] Description 02/22/2025 2:30 PM EDT Office Visit [facility] ADULT D[facility] [address] [place] [address] Dakota Jose, DMD [address] [place] [address] documented as of this encounter Visit Diagnoses Not on filedocumented in this encounter Additional Health Concerns Assessment Noted Time PHQ-9 Depression Total Score: 4 06/30/19 23 11:18 AM EST documented as of this encounter Care Teams Customer Care Team Coach Relationship Specialty Start Date End Date Gerda Mc MD [address] [place] [address] PCP - General Family Medicine 06/08/18 Alfonso Doan MD [address] [place] [address] [address] [place] [address] Ophthalmology 11/23/24 documented as of this encounter
--- OUTSIDE RECORDS SUMMARY | 2025-02-16 11:16 | XMS_ITS | Encounter Summary ---
Author Organization [employer] Address [address] [place] [address] Care Team Providers Care Assembler Production Line Name Role Phone Gerda Mc MD Primary Care Provider [phone] Alfonso Doan MD Unavailable [phone] Reason for Visit * Reason Onset Date Comments chart prep 02/15/2025 Encounter Details Date Type Department Care Team ([facility] st Contact Info) Description 02/15/2025 Telephone [facility] MED[facility]INE [address] [place] [address] Tiesha Anthony MD [address] [place], [place] [id number] chart prep Social History Tobacco Use Types Packs/Day Years [...] encounter Miscellaneous Notes * Telephone Encounter - Neena Herndon [place] - 02/15/2025 4:20 PM EDT Chart Prep Labs: done Images: done Screenings: Not Applicable Vaccines due: Covid Due and Flu Due Referrals: Completed Overdue care gaps: Oral Health documented in this encounter Plan of Treatment Upcoming Encounters Date Type Department Care Team (Late st Contact Info) Description 02/22/2025 2:30 PM EDT Office Visit [facility] ADULT DENTAL [address] [place] [address] Dakota Jose, DMD [address] [place] [address] documented as of this encounter Visit Diagnoses Not on filedocumented in this encounter Additional Health Concerns Assessment Noted Time PHQ-9 Depression Total Score: 4 06/30/19 23 11:18 AM EST documented as of this encounter Care Teams Assembler Production Line Relationship Specialty Start Date End Date Gerda Mc MD [address] [place] [address] PCP - General Family Medicine 06/08/18 Alfonso Doan MD [address] [place] [address] Ophthalmology 11/23/24 documented as of this encounter
--- OUTSIDE RECORDS SUMMARY | 2025-02-16 11:16 | XMS_ITS | Clinical Summary ---
Author Organization [employer] Address [address] [facility] 7[address] [place] [address] Care Team Providers Care Ophthalmologist Retina Specialist Name Role Phone Gerda Mc MD Primary Care Provider [phone] Alfonso Doan MD Unavailable [phone] Allergies Active Allergy Reactions Criticality Noted Date Comments George Inhibitors Cough High 02/03/2013 Medications atenolol (Tenormin) 25 MG tabletIndications :Primary hypertension,Hype rtension, essential take 1 tablet (25MG) by oral route every day Strength: 25 mg 90 tablet 3 4 Active cholecalciferol (Vitamin D-3) 25 MCG tabletIndications :Vitamin D deficiency TAKE 1 TABLET BY MOUTH ONCE DAILY IN THE MORNING 90 tablet 3 5 Active loratadine (Claritin) 10 MG tabletIndications :Allergic rhinitis, unspecified seasonality, unspecified trigger TAKE 1 TABLET BY MOUTH EVERY DAY FOR ALLERGIES 90 tablet 3 5 Active amLODIPine (Norvasc) 10 MG tabletIndications :Essential (primary) hypertension Take 1 tablet by mouth once daily 90 tablet 3 5 Active Blood Pressure kitIndications:Es sential (primary) hypertension Use as directed 1 kit 5 Active senna (Senokot) 8.6 MG tabletIndications :Constipation, unspecified constipation type Take 1 tablet (8.6 mg) by mouth at bedtime. 60 tablet 2 5 Active bisacodyl (Dulcolax) 5 MG EC tabletIndications :Constipation, unspecified constipation type Take 1 tablet (5 mg) by mouth if needed each day for constipation. PT purchasing OTC 30 tablet 1 5 Active acetaminophen (Tylenol) 325 MG tabletIndications :Arthralgia of shoulder, unspecified laterality TAKE 2 TABLETS BY MOUTH EVERY 6 HOURS NEEDED FOR PAIN OF KNEE 60 tablet 1 5 Active chlorhexidine (Peridex) 0.12 % solution Swish 15 mL morning and night for 1 minute. Spit, do not swallow. Do not eat or drink for 30 minutes following use. 473 mL 5 Active lidocaine (Lidoderm) 5 % patchIndications: Acute pain of right shoulder Apply 1 patch topically Once per day. Remove & discard patch within 12 hours or as directed by MD. 60 patch 11 5 Active Diclofenac Sodium 1 % gel Apply to affected area once or twice daily 150 g 3 5 Active Active Problems Problem Noted Date Diagnosed Date Right shoulder pain 02/16/2025 Assessment & Plan (02/16/2025 9:44 AM EDT): - most likely tendinitis and osteoarthritis, unlikely [...] NSAID is contraindicated with her renal fucntion Periodontal disease 01/05/2025 Bilateral swelling of feet and ankles 01/05/2025 Pain, dental 11/29/2024 Varicose veins of ankle 11/10/2024 Partially edentulous maxilla 08/31/2024 CKD (chronic kidney disease) stage 4, GFR 15-29 ml/min 03/29/2024 Overview (11/10/2024): Lab Results Component Value Date CREATININE 1.38 07/29/2024 CREATININE 1.53 (H) 05/17/2024 CREATININE 1.58 (H) 04/14/2024 EGFR 37 07/29/2024 LDLCHOLCAL 81 07/29/2024 -referred to nephrology 03/29/24, cancelled 03/30/24 -03/30/24 discussed with pharmacist that bump in Creatinine could be due to Valsartan, will discontinue and start Amlodipine 2.5mg at night and recheck Creatinine in 2 weeks. - 05/17/24 still elevated, discontinued hydrochlorothiazide due to CrCl <30mL/min. ARB previously discontinued 03/30/24 due to noted increase in SCR; repeat BMP ordered. - 07/29/24 Creatinine WNL. Assessment & Plan (11/10/2024 9:16 AM EDT): Lab Results Component Value Date CREATININE 1.38 07/29/2024 CREATININE 1.53 (H) 05/17/2024 CREATININE 1.58 (H) 04/14/2024 EGFR 37 07/29/2024 LDLCHOLCAL 81 07/29/2024 -referred to nephrology 03/29/24, cancelled 03/30/24 -03/30/24 discussed with pharmacist that bump in Creatinine could be due to Valsartan, will discontinue and start Amlodipine 2.5mg at night and recheck Creatinine in 2 weeks. - 05/17/24 still elevated, discontinued hydrochlorothiazide due to CrCl <30mL/min. ARB previously discontinued 03/30/24 due to noted increase in SCR; repeat BMP ordered. - 07/29/24 Creatinine WNL. Assessment & Plan (03/30/2024 11:03 AM EDT): [...] steroid injection 04/20/24 with Cony Murdock PA-C Other specified health status 05/11/2023 Overview (11/10/2024): -next comprehensive annual evaluation due after 06/26/2024 -eye care facilitated by followed by Dr. Alfonso Doan of [facility] -dental home is [facility] dental -health care proxy signed and filed 06/26/2023 Assessment & Plan (11/10/2024 9:17 AM EDT): -next comprehensive annual evaluation due after 06/26/2024 -eye care facilitated by followed by Dr. Alfonso Doan of [facility] -dental home is [facility] dental -health care proxy signed and filed 06/26/2023 Assessment & Plan (06/26/2023 9:49 AM EST): -next physical exam due after 06/26/2024 -eye care facilitated by followed by Dr. Alfonso Doan of [facility] -dental home is [facility] dental -health care proxy signed and filed 06/26/2023 Assessment & Plan (05/11/2023 11:25 AM EST): -next physical exam due after 06/2023 -eye care facilitated by -dental home is Degeneration of lumbar intervertebral disc 06/30 Overview (11/10/2024): XR/XR lumbar spine 2-3V 03/17/24 IMPRESSION: Reverse S-shaped scoliotic curvature of the thoracolumbar spine, unchanged. Prominent multilevel degenerative disc disease and facet arthropathy, slightly progressed when compared to the prior radiograph. -continue warm baths and acetaminophen prn Assessment & Plan (11/10/2024 9:18 AM EDT): XR/XR lumbar spine 2-3V 03/17/24 IMPRESSION: Reverse S-shaped scoliotic curvature of the thoracolumbar spine, unchanged. Prominent multilevel degenerative disc disease and facet arthropathy, slightly progressed when compared to the prior radiograph. -continue warm baths and acetaminophen prn S/P total knee arthroplasty 06/27/2022 Overview (04/12/2024): [...] 09/17/[address] Deven Jefferson, pain controlled. Constipation 06/27/2022 Overview (11/10/2024): PT was taking OTC bisacodyl -trial of senna started 11/10/24 Assessment & Plan (11/10/2024 9:18 AM EDT): PT was taking OTC bisacodyl -trial of senna started 11/10/24 Moderate major depression, single episode 2021 Overview (11/10/2024): Pt repots much better. Exacerbated by self-isolation and two sisters passing from covid-19 Continue on fluoxetine 20mg daily. Two of her sisters from COVID this past year Assessment & Plan (11/10/2024 9:17 AM EDT): Pt repots much better. Exacerbated by self-isolation and two sisters passing [...] past year. Essential (primary) hypertension 12/11/2011 Overview (11/10/2024): -Blood pressure is at goal - continue lifestyle modifications: importance of low-sodium diet and regular moderate physical activity discussed. - followed in [facility] HTN clinic - current medications: - continue atenolol 25 mg daily - continue Amlodipine 10 mg - medication hx: - seen in ER for hypertensive urgency 03/16/24. 03/30/24 reports stable BP's at home, BP in clinic at goal. - hydrochlorothiazide discontinued by [facility] 05/17/24 due to CrCl <30mL/min - valsartan 40 started 03/17/24, discontinue 03/30/24 - start Amlodipine 2.5 mg at night 03/30/24, increased by [facility] to 5mg once daily 05/17/24 - 03/31/24 [...] does not warrant further follow up in [facility] clinic; encouraged patient to continue close follow up with PCP. If further follow up is needed, please send a new referral. Assessment & Plan (02/16/2025 9:40 AM EDT): -Blood pressure is at goal - continue lifestyle modifications: importance of low-sodium diet and regular moderate physical activity discussed. - followed in [facility] HTN clinic - current medications: - continue atenolol 25 mg daily - continue Amlodipine 10 mg - medication hx: - seen in ER for hypertensive urgency 03/16/24. 03/30/24 reports stable BP's at home, BP in clinic at goal. - hydrochlorothiazide discontinued by [facility] 05/17/24 due to CrCl <30mL/min - valsartan 40 started 03/17/24, discontinue 03/30/24 - start Amlodipine 2.5 mg at night 03/30/24, increased by [facility] to 5mg once daily 05/17/24 - 03/31/24 discussed with pharmacist that bump in Creatinine could be due to Valsartan, will discontinue and start Amlodipine 2.5mg at night and recheck Creatinine in 2 weeks. - saw CD 05/17/24 increased amlodipine to 5mg once daily and discontinue hydrochlorothiazide due to CrCl <30mL/min. ARB previously discontinued 03/30/24 due to noted increase in SCR; repeat BMP ordered today. Message sent to PCP that if remains elevated, may consider referral to nephrology. - 06/21/24 [facility] increased amlodipine to 10mg once daily. - 10/10/24 [facility] Patient BP WNL for 2 consecutive visits and does not warrant further follow up in [facility] clinic; encouraged patient to continue close follow up with PCP. If further follow up is needed, please send a new referral. Assessment & Plan (11/10/2024 9:16 AM EDT): -Blood pressure is at goal - continue lifestyle modifications: importance of low-sodium diet and regular moderate physical activity discussed. - followed in [facility] HTN clinic - current medications: - continue atenolol 25 mg daily - continue Amlodipine 10 mg - medication hx: - seen in ER for hypertensive urgency 03/16/24. 03/30/24 reports stable BP's at home, BP in clinic at goal. - hydrochlorothiazide discontinued by [facility] 05/17/24 due to CrCl <30mL/min - valsartan 40 started 03/17/24, discontinue 03/30/24 - start Amlodipine 2.5 mg at night 03/30/24, increased by [facility] to 5mg once daily 05/17/24 - 03/31/24 [...] is needed, please send a new referral. Assessment & Plan (03/30/2024 10:53 AM EDT): Seen in ER for hypertensive urgency 03/16/24 -continue HCTZ 25 mg -continue atenolol 25 mg daily -valsartan 40 started 03/17/24, discontinue 03/30/24 -start Amlodipine 2.5 mg at night 03/30/24 -Importance of low-sodium diet and regular moderate physical activity discussed. -referral to Collaborative Drug Therapy Managment Program with our PharmD, URI placed 03/17/24 -03/31/24 discussed with pharmacist that [...] Drug Therapy Managment Program with our PharmDURI 03/17/24 Assessment & Plan (06/26/2023 9:05 AM [...] sent to PT 06/30/22. Dysuria 06/27/2022 04/20/2024 Chronic low back pain 06/27/20222023 [...] incontinence. Primary localized osteoarthritis of left knee 06/27/19 23 04/20/2024 Neck pain on left side 06/27/202204/20 Tear of meniscus of knee 03/01/2017 Rupture of anterior cruciate ligament 03/01/2017 04/20/2024 Knee pain 02/10/2017 04/20/2024 Encounters Date Type Department Care Team Description 02/16/2025 9:30 AM EDT Office Visit [facility] MEDICINE [address] [place] [address] Tiesha Anthony MD Acute pain of right shoulder (Primary Dx); Essential (primary) hypertension; CKD (chronic kidney disease) stage 4, GFR 15-29 ml/min ([facility]); Degeneration of intervertebral disc of lumbar region with discogenic back pain 02/16/2025 Results Follow-Up [facility] MEDICINE [address] [place] [address] Tiesha Anthony MD XR Shoulder 2+ Views Right 02/16/2025 Travel 02/15/2025 Telephone [facility] MEDICINE [address] [place] [address] Tiesha Anthony MD chart prep 02/15/2025 Telephone [facility] MEDICINE [address] [place] [address] Gerda Mc MD Nurse Triage 02/02/2025 8:30 AM EDT Office Visit [facility] ADULT DENTAL [address] [place] [address] Dakota Jose, DMD 01/19/2025 11:00 AM EDT Office Visit [facility] ADULT DENTAL [address] [place] [address] Dakota Jose, DMD 01/05/2025 1:30 PM EDT Office Visit [facility] ADULT DENTAL [address] [place] [address] Vijay Brandt DDS Bilateral swelling of feet and ankles (Primary Dx); Periodontal disease 11/29/2024 1:30 PM EDT Office Visit [facility] ADULT DENTAL [address] [place] [address] Vijay Brandt DDS Pain, dental (Primary Dx) 11/18/2024 Refill [facility] W[facility] [address] [place] [address] Gerda Mc MD Arthralgia of shoulder, unspecified laterality from Last 3 Months Immunizations Immunization Administration Dates Next Due Influenza High-dose Quadriva [...] Mass Index 31.11 02/16/2025 9:16 AM EDT Plan of Treatment Upcoming Encounters Date Type Department Care Team (Late st Contact Info) Description 02/22/2025 2:30 PM EDT Office Visit [facility] ADULT DENTAL [address] [place] [address] RebecaDakota, DMD [address] [place], [place] [phone] Health Maintenance Due Date Last Done Comments Dental Prophylaxis 1945 Dental X-Ray: Bitewings 1945 COVID-19 Vaccine ( season) 2025 05/11/2023, 11/26/2021, 04/24/2021, Additional history exists Influenza Vaccine (#1) 2025 , 05/11/2023, 03/14/2021, Additional history exists Alcohol/Substance Use Screening 03/17/2025 03/17/2024 Depression Screening 03/17/2025 03/17/2024, 06/30/19 23 SDOH Screening 03/17/2025 03/17/2024 Dental Oral Exam 03/19/2025 09/16/2024 Tobacco Screening 02/16/2026 02/16/2025 Dental X-Ray: Full Mouth 09/18/2027 09/16/2024 Lipid Panel 07/29/2029 07/29/2024, 0110/2023, 03/19/2021 DTaP/Tdap/Td Vaccines (3 - Td or Tdap) 10/10/2031 10/09/2021, 09/29/2011 Pneumococcal Vaccine: 50+ Years Completed 04/24/2015, 09/29/2011 Zoster Vaccines Discontinued 10/09/2021, 10/08/2011 RSV Patients and Patients Aged 60 years or older Completed 06/26/2023 HIB Vaccines Aged Out No longer eligi [...] patient's age to complete this topic Meningococcal B Vaccine Aged Out No l onger eligible based on patient's age to complete [...] AM EDT Acute pain of right shoulder DENTURE IMPRESSION Routine 02/02/2025 8: 30 AM EDT BITE REGISTRATION Routine 02/02/2025 8:3 0 AM EDT DENTURE IMPRESSION Routine 01/19/2025 11 :00 AM EDT 5 EXTRACTION, ERUPTED TOOTH REQ REMOVAL OF BONE AND/OR SECTIONING OF TOOTH Routine 01/05/2025 1:30 PM EDT 11 EXTRACTION, ERUPTED TOOTH REQ REMOVAL OF BONE AND/OR SECTIONING OF TOOTH Routine 01/05/2025 1:30 PM EDT 13 EXTRACTION, ERUPTED TOOTH REQ REMOVAL OF BONE AND/OR SECTIONING OF TOOTH Routine 01/05/2025 1:30 PM EDT CASE PRESENTATION, DETAILED AND EXTENSIVE TREATMENT PLANNING Routine 01/05/2025 1:30 PM EDT 9 EXTRACTION, ERUPTED TOOTH OR EXPOSED ROOT (ELEVATION/FORCEPS REMOVAL) Routine 01/05/2025 1:30 PM EDT CASE PRESENTATION, DETAILED AND EXTENSIVE TREATMENT PLANNING Routine 11/29/2024 1:30 PM EDT LIMITED ORAL EVALUATION - PROBLEM FOCUSED Routine 11/29/2024 1:30 PM EDT PANORAMIC RADIOGRAPHIC IMAGE Routine 09/16/2024 10:00 AM EDT PERIODIC ORAL EVALUATION - ESTABLISHED PATIENT Routine 09/16/2024 10:00 AM EDT LIPID PANEL, STANDARD Routine 07/29/2024 9:45 AM EST from Last 3 Months or Most Recently Relevant to Health Maintenance Results * XR Shoulder 2+ Views Right (02/16/2025 9:57 AM EDT) Anatomical Region Laterality Modality Upper Extremities, Shoulder Right Radi ographic Imaging 02/16/2025 9:57 AM EDT Narrative 02/16/2025 10:07 AM EDT [facility] [address] [place] [address] XRay Report Signed Patient: Kimmie Martinez MR #: [id number] : [id number] Acct:[id number] Age/Sex: 79 / F ADM Date: 02/16/25 Loc: [facility] Attending Dr: Tiesha Anthony MD Ordering Physician: Tiesha Anthony MD Date of Service: 02/16/25 Procedure(s): XR shoulder RT min 2V Accession Number(s): [id number] cc: Gerda Mc MD; Tiesha Anthony MD [...] George Kaur MD 02/16/2025 10:04 AM EDT Dictated By: George Bertrand MD Signed By: <Electronically signed by George Vega MD in OV> 02/16/25 1004 DD/ 0957 TD/TT: 02/16/25 0958 Geophysics Teacher: Procedure Note Bashir, Image - 02/16/2025 [facility] [address] [place] [address] XRay Report Signed Patient: Kimmie MartinezMR #: [id number] : 5Acct:[id number] Age/Sex: 79 / FADM Date: 02/16/25 [facility]: Tiesha Anthony MD Ordering Physician: Tiesha Anthony MD Date of Service: 02/16/25 Procedure(s): XR shoulder RT min 2V Accession Number(s): [id number] cc: Gerda Mc MD; Tiesha Anthony MD [...] George Kaur MD 02/16/2025 10:04 AM EDT Dictated By: George Bertrand MD Signed By: <Electronically signed by George Vega MDin OV> 02/16/25 1004 DD/ 6 TD/TT: 02/16/25957 Geophysics Teacher: us Tiesha Anthony MD IMG XR PROCEDURES Final Result * Lipid Panel, Standard (07/29/2024 9:45 AM EST) Triglycerides 71 <150 mg/dL [facility] Comment:Desirable Triglyceri de: less than 150 mg/dLBorderline High Triglyceride 150-199 mg/dLHigh Triglyceride: 200-499 mg/dLVery High Triglyceride: greater than or equal to 5OO mg/dL Cholesterol 148 <200 mg/dL [facility] Comment:Desirable Cholestero l: less than 200 mg/dLBorderline High Cholesterol: 200-239 mg/dLHigh Cholesterol: greater than 239 mg/dL LDL Cholesterol Calculated 81 <100 mg/dL [facility] Comment:Desirable LDL: less than 100 mg/dLNear Optimal/Above Optimal LDL: 110- 129 mg/dLBorderline High LDL: 130-159 mg/dLHigh LDL: 160-189 mg/dLVery High LDL: greater than or equal to 190 mg/dL HDL Cholesterol 53 >40 mg/dL [facility] Comment:Desirable HDL: great er than 40 mg/dL Note: This HDL assay may give artificially low results in patients with liver disease. 07/29/2024 9:45 AM EST 07/29/2024 9:45 AM EST us Gerda Mc MD LAB BLOOD ORDERABLES Final Result [facility] [address] [place] [address] [phone] from Last 3 Months or Most Recently Relevant [place] [id number] MEDICARE HSN FULL DENTAL - N FULL (MEDICAID) Advance Directives Documents on File Type Date Recorded Patient Demand Planner Expl anation Power of Paper Box Maker 03/17/2024 Health Car e Proxy 03/17/24 Power of Paper Box Maker 06/30/2023 HealthCare Proxy 06/26/23 Care Teams Ophthalmologist Retina Specialist Relationship Specialty Start Date End Date Denton, MD Gerda [address] [place] [address] PCP - General Family Medicine 06/08/18 Alfonso Doan MD [address] [facility] [address] [place] [address] Ophthalmology 11/23/24
--- OUTSIDE RECORDS SUMMARY | 2025-02-16 11:16 | XMS_ITS | Encounter Summary ---
Author Organization [employer] Address [address] [facility] [address] [place] [address] Care Team Providers Care Doubling Machine Operator Name Role Phone Gerda Mc MD Primary Care Provider [phone]- [phone] Jenny Gardner PharmD Unavailable Alfonso Doan MD Unavailable [phone] Reason for Visit * Reason Onset Date Comments Appointment 07/29/2022 Patient called i n stating appt was cancelled by office and was instructed to call back for rescheduling DR Encounter Details Date Type Department Care Team (Late st Contact Info) Description 07/29/2022 Telephone [facility] ADULT DENTAL [address] [place], [place] [phone] Dakota Jose, GIULIANA [address] [place], [place] [phone] Appointment (Patient called in stating appt was [...] Recorded In the last 10 days, have yamilka u been in contact with someone who was confirmed or suspected to have Coronavirus/COVID-19? No / Unsure 07/15/2022 2:11 PM EST documented as of this encounter Miscellaneous Notes * Telephone Encounter - Laura Donaldo - 07/29/2022 10:28 AM EST Patient called in stating appt was cancelled by office and was instructed to call back for rescheduling DR documented in this encounter Plan of Treatment Upcoming Encounters Date Type Department Care Team (Late st Contact Info) Description 02/22/2025 2:30 PM EDT Office Visit [facility] ADULT DENTAL [address] [place] [address] Dakota Jose, DMD [address] [place] [address] documented as of this encounter Visit Diagnoses Not on filedocumented in this encounter Additional Health Concerns Assessment Noted Time PHQ-9 Depression Total Score: 4 06/30/19 23 11:18 AM EST documented as of this encounter Care Teams Doubling Machine Operator Relationship Specialty Start Date End Date Gerda Mc MD [address] [place] [address] PCP - General Family Medicine 06/08/18 Jenny Gardner, MarianaD [address] [place] [address] Pharmacist Internal Medicine 04/13/24 10/10/24 Alfonso Doan MD [address] [facility] [address] [place] [address] Ophthalmology 11/23/24 documented as of this encounter
--- OUTSIDE RECORDS SUMMARY | 2025-02-16 11:16 | XMS_ITS | Encounter Summary ---
Author Organization [employer] Address [address] [facility] [address] [place] [address] Care Team Providers Care Roller Die Cutting Machine Operator Name Role Phone Gerda Mc MD Primary Care Provider [phone] Alfonso Doan MD Unavailable [phone] Reason for Visit * Reason Onset Date Comments Nurse Triage 02/15/2025 Encounter Details Date Type Department Care Team ([facility] st Contact Info) Description 02/15/2025 Telephone [facility] MEDICINE [address] [place], [place] [phone] Gerda Mc MD [address] [place], [place] [phone] Nurse Triage Social History Tobacco Use Types Packs/Day Years [...] encounter Miscellaneous Notes * Telephone Encounter - Lillian Santiago RN - 02/15/2025 11:20 AM EDT No coating machine feeder needed as 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 Call returned to [facility] to triage below at [phone]. Reports having upper back and flank pain [...] to sick onsite tomorrow with team provider. Protocol Used: Back Pain (Adult) Protocol-Based Disposition: See in Office or Video Visit within 3 Days Future Appointments Date Time Provider Department Center 02/16/2025 9:30 AM Tiesha Anthony MD MEDICINE [facility] 02/22/2025 2:30 PM Dakota Jose DMD ADLT DENT [facility] Insurance verified as active per Real Time Eligibility in [facility]. Video visit offer not recorded Positive Triage Question: * Moderate back pain (e.g., interferes with normal activities) and present > 3 days * All higher-acuity triage questions were negative Care Advice Discussed: * Reassurance and Education - Back Pain * Cold or Heat * Continue Activity * Pain Medicines * Reasons To Call Back - Severe pain not better after taking pain medicines - Moderate pain (interferes with normal activities) lasts over 3 days - Pain begins to shoot into the leg - Fever occurs - Numbness or weakness occurs - You become worse * Telephone Encounter - Michelle Masoud Amaro - 02/15/2025 11:07 AM EDT Symptoms: Back Pain - Not From Injury, Shoulder Pain - Not From Injury Outcome: Schedule an urgent appointment (within 1 hour) or talk to a nurse or provider soon Reason: Severe pain now The caller accepted this outcome. Contact pt at [phone] Need coating machine feeder documented in this encounter Plan of Treatment Upcoming Encounters Date Type Department Care Team (Late st Contact Info) Description 02/22/2025 2:30 PM EDT Office Visit [facility] ADULT DENTAL [address] [place] [address] Dakota Jose, GIULIANA [address] [place] [address] documented as of this encounter Visit Diagnoses Not on filedocumented in this encounter Additional Health Concerns Assessment Noted Time PHQ-9 Depression Total Score: 4 06/30/19 23 11:18 AM EST documented as of this encounter Care Teams Roller Die Cutting Machine Operator Relationship Specialty Start Date End Date Gerda Mc MD [address] [place] [address] PCP - General Family Medicine 06/08/18 Alfonso Doan MD [address] [facility] [address] [place] [address] Ophthalmology 11/23/24 documented as of this encounter
--- OUTSIDE RECORDS SUMMARY | 2025-02-16 11:16 | XMS_ITS | Encounter Summary ---
Author Organization [employer] Address [address] [place] [address] Care Team Providers Care Head Char Filter Tank Tender Name Role Phone Gerda Mc MD Primary Care Provider +- [phone] Jenny Gardner PharmD Unavailable [phone] Alfonso Doan MD Unavailable [phone] Reason for Visit * Reason Comments Med Refill Encounter Details Date Type Department Care Team (Late st Contact Info) Description 11/24/2023 Refill [facility] [address] [place] [address] Gerda Mc MD [address] [place] [address] Arthralgia of shoulder, unspecified laterality Social History [...] Description 02/22/2025 2:30 PM EDT Office Visit [facility] [address] [place] [address] Dakota Jose, DMD [address] [place] [address] documented as of this encounter Visit Diagnoses Diagnosis Arthralgia of shoulder, unspecified laterality documented in this encounter Additional Health Concerns Assessment Noted Time PHQ-9 Depression Total Score: 4 06/30/19 23 11:18 AM EST documented as of this encounter Care Teams Head Char Filter Tank Tender Relationship Specialty Start Date End Date Gerda Mc MD [address] [place] [address] PCP - General Family Medicine 06/08/18 Jenny Gardner, MarianaD [address] [place] [address] Pharmacist Internal Medicine 04/13/24 10/10/24 Alfonso Doan MD [address] [facility] [address] [place] [address] Ophthalmology 11/23/24 documented as of this encounter
--- OUTSIDE RECORDS SUMMARY | 2025-02-16 11:16 | XMS_ITS | Encounter Summary ---
Author Organization [employer] Address [address] [place] [address] Care Team Providers Care Sql Application Developer Name Role Phone Gerda Mc MD Primary Care Provider [phone] Alfonso Doan MD Unavailable [phone] Encounter Details Date Type Department Care Team ([facility] Contact Info) Description 02/16/2025 Results Follow-Up [facility] [address] [place] [address] Tiesha Anthony MD [address] [place], [place] [phone] XR Shoulder 2+ Views Right Social History Tobacco Use Types Packs/Day Years [...] Description 02/22/2025 2:30 PM EDT Office Visit [facility] [address] [place] [address] Dakota Jose, DMD [address] [place] [address] documented as of this encounter Visit Diagnoses Not on filedocumented in this encounter Additional Health Concerns Assessment Noted Time PHQ-9 Depression Total Score: 4 06/30/19 23 11:18 AM EST documented as of this encounter Care Teams Sql Application Developer Relationship Specialty Start Date End Date Gerda Mc MD [address] [place] [address] PCP - General Family Medicine 06/08/18 Alfonso Doan MD [address] [place] [address] [address] [place] [address] Ophthalmology 11/23/24 documented as of this encounter
--- OUTSIDE RECORDS SUMMARY | 2025-02-16 11:16 | XMS_ITS | Encounter Summary ---
Author Organization [employer] Address [address] [place] [address] Care Team Providers Care Dude Wrangler Name Role Phone Gerda Mc MD Primary Care Provider +- [phone] Jenny Gardner PharmD Unavailable [phone] Alfonso Doan MD Unavailable [phone] Encounter Details Date Type Department Care Team (Late st Contact Info) Description 03/25/2024 Orders Only [facility] [address] [place] [address] Gerda Mc MD [address] [place] [address] Elevated serum creatinine (Primary Dx); Routine screening [...] Description 02/22/2025 2:30 PM EDT Office Visit [facility] [address] [place] [address] Dakota Jose, DMD [address] [place] [address] documented as of this encounter Procedures Procedure [...] EDT) Sodium 140 135 - 145 mmol/L [facility] Potassium 3.5 3.3 - 5.1 mmol/L [facility] Chloride 102 96 - 108 mmol/L [facility] Carbon Dioxide 29 22 - 29 mmol/L [facility] Anion Gap 13 12 - 20 [facility] Urea Nitrogen (BUN) 34(H) 9 - 16 mg/dL [facility] Creatinine, Serum 1.84(H) 0.5 - 1.4 mg/dL [facility] Estimated Glomerular Filt Rate 26 [facility] Comment:NOTE: For -Am erican individuals, multiply the result by 1.210.Chronic Kidney Disease: Estimated GFR < 60 mL/min/1.93j6Ouaslw Kidney Disease: Estimated GFR < 15 mL/min/1.73m2 Glucose 113 60 - 115 mg/dL [facility] Calcium 9.3 8.4 - 10.2 mg/dL [facility] Blood Venous blood specimen / Unknown 03/28/2024 12:30 PM EDT 03/28/2024 12:34 PM EDT Gerda Mc MD LAB BLOOD ORDERABLES Final Result Performing Organization Address [facility]/ZIP Co de Phone Number [facility] [address] [place] [address] [phone] * Hepatitis C Antibody with Reflex to HCV, RNA, Quantitative, Real-Time PCR (03/28/2024 12:30 PM EDT) Hepatitis C Antibody Nonreactive Nonreactive [facility] Comment:Antibodies to HCV no t detected; does not exclude early acuteHCV infection. Blood Venous blood specimen / Unknown 03/28/2024 12:30 PM EDT 03/28/2024 12:34 PM EDT Gerda Mc MD LAB BLOOD ORDERABLES Final Result Performing Organization Address [facility]/ZIP Co de Phone Number [facility] [address] [place] [address] [phone] documented in this encounter Visit Diagnoses [...] documented as of this encounter Care Teams Dude Wrangler Relationship Specialty Start Date End Date Gerda Mc MD [address] [place] [address] PCP - General Family Medicine 06/08/18 Jenny Gardner PharmD [address] [place] [address] Pharmacist Internal Medicine 04/13/24 10/10/24 Alfonso Doan MD [address] [place] [address] [address] [place] [address] Ophthalmology 11/23/24 documented as of this encounter
== END 2025-02-16 09:38 | disposition home or self-care (01) ==
LOC: HO.HHCX 09:37
PROVIDERS: PCP Family Medicine; Visit Provider Family Medicine
DX: M25.511 Pain in right shoulder (principal)
CPT/HCPCS: 73030

== ENCOUNTER → 2025-02-16 09:41 | Outpatient (BNV) | payer MEDICARE, MEDICAID, SELFPAY | PROVIDERS: PCP Family Medicine; Visit Provider Radiology Diagnostic Radiology | DX: M75.101 Unspecified rotator cuff tear or rupture of right shoulder, not specified as traumatic (principal) | CPT/HCPCS: 73030 ==

== ENCOUNTER 2025-03-15 09:50 | Outpatient (REF) | payer MEDICARE, MEDICAID, SELFPAY | END 2025-03-15 09:51 | disposition home or self-care (01) | LOC: HO.MAMMO 09:50 | PROVIDERS: PCP Family Medicine; Visit Provider Family Medicine | DX: Z12.31 Encounter for screening mammogram for malignant neoplasm of breast (principal) | CPT/HCPCS: 77063; 77067 ==

== ENCOUNTER → 2025-03-15 10:30 | Outpatient (BNV) | payer MEDICARE, MEDICAID, SELFPAY | PROVIDERS: PCP Family Medicine; Visit Provider Internal Medicine | DX: Z12.31 Encounter for screening mammogram for malignant neoplasm of breast (principal) | CPT/HCPCS: 77063; 77067 ==

== ENCOUNTER 2025-04-11 13:26 | Emergency (ER) | payer MEDICARE, MEDICAID, SELFPAY ==
--- NOTE | ~2025-04-11 | XR_ITS ---
EXAMINATION: XR LUMBOSACRAL SPINE CLINICAL INFORMATION: L lower pain radiating down leg COMPARISON: 03/17/2024, 04/20/2018. TECHNIQUE: Three views of the lumbosacral spine. FINDINGS: There is an S-shaped thoracolumbar scoliosis, the superior component convex to the left, apex at L1, and the inferior component convex to the right, apex at L4. There is a mildly exaggerated lumbar lordosis. There is no definite fracture, compression deformity, or suspicious bone lesion. There are several stable minimal degenerative type subluxations, most notable at L1-L2 and L2-L3. There is sclerosis of the endplates present at T12-L1, L1-2, and L3-4. Associated severe degenerative disc changes at these levels. There is otherwise mild to moderate degenerative disc changes. Facets are normally aligned. There are extensive multilevel degenerative hypertrophic facet changes bilaterally. The sacrum is intact. There are moderate degenerative changes in both SI joints. Soft tissues demonstrate diffuse vascular calcifications. XR/XR lumbar spine 2-3V IMPRESSION: 1. Scoliosis and multilevel advanced degenerative spondylosis without significant change from 03/17/2024. No acute bony abnormalities. Electronically signed by: Santi Acosta MD 04/11/2025 01:50 PM [facility]
--- NOTE | 2025-04-11 13:29 | ED_ITS ---
HPI - General Adult General Chief complaint: Back Pain/Injury Stated complaint: pain whole l side Time Seen by Provider: 04/11/25 18:53 Source: patient, RN notes reviewed and adjunct psychology faculty member Mode of arrival: ambulatory Limitations: language barrier History of Present Illness ED Provider: Chip HPI narrative: 79 old female presents for evaluation of left lower back pain pain She has a long history of arthritis, back pain and sciatica. She reports for the last 2 weeks she has had pain that radiates down to her left leg and foot. The pain is not there when she is sitting or laying down pain Her pain is present and worse with walking. She is able to ambulate but using a walker. She takes Tylenol every day for her pain which has not been helping. She also has been using [id number] patches which have not been helping. She used to take a lot of NSAIDs but states that her doctor made her stop this due to kidney issues The patient denies any falls pain Denies any burning with urination, blood in the urine pain No fevers or chills pain Denies any abdominal pain, nausea vomiting Related Data Home Medications ?Medication ?Instructions ?Recorded ?Confirmed atenolol 25 mg tablet 1 tab PO DAILY 06/03/2103/09 fluoxetine 10 mg capsule 1 cap PO DAILY 06/03/2103/09 hydrochlorothiazide 25 mg tablet 1 tab PO DAILY blood pressure 06/03/21 03/29/24 loratadine 10 mg tablet 1 tab PO DAILY PRN allergies 06/03/21 03/29/24 melatonin 5 mg tablet 1 tab PO BEDTIME PRN insomni a 06/03/21 03/29/24 naproxen 250 mg tablet 1 tab PO BID 06/03/21 valsartan 40 mg tablet 40 mg PO DAILY 03/29/2403/09 amlodipine 2.5 mg tablet 2.5 mg PO BID 04/20/24 cholecalciferol (vitamin D3) 25 25 mcg PO QAM 04/20/24 mcg (1,000 unit) tablet Previous Rx's ?Medication ?Instructions ?Recorded acetaminophen 325 mg tablet 650 mg (2 x 325 mg) PO Q6H PRN 09/19/21 Pain, Mild (Pain Scale 1-3) 30 days #240 tabs aspirin 325 mg tablet 325 mg PO BID 42 days #84 ta bs 09/19/21 amoxicillin 500 mg tablet 2,000 mg (4 x 500 mg) PO ONC E #4 09/19/22 tabs dexamethasone 4 mg tablet 4 mg PO BID #5 tabs 04/11/25 oxycodone 5 mg tablet 2.5 mg (1/2 x 5 mg) PO Q8H P RN 04/11/25 pain #7 tabs Allergies Allergy/AdvReac Type Severity Reaction Status Date / Time Seasonal Allergies Allergy Intermediate sneezing/itchy Verified 04/11/25 13:31 eyes DALY Inhibitors AdvReac Intermediate Cough Verified 04/11/25 13:31 Review of Systems Constitutional: Constitutional: Denies body ache(s), Denies chills, Denies fever(s) and Denies headache(s) Eyes: Eyes: Denies blurry vision ENT: Denies vertigo, Denies dizziness and Denies headache(s) Cardiovascular: Cardiovascular: Denies chest pain and Denies dyspnea on exertion Respiratory: Respiratory: Denies cough and Denies dyspnea on exertion Gastrointestinal: Gastrointestinal: Denies abdominal pain, Denies nausea and Denies vomiting Musculoskeletal: Musculoskeletal: Reports back pain, Denies arthralgias, Denies joint swelling, Denies limited range of motion and Reports radiating pain into limb Integumentary/Breasts: Skin/Breast: Denies rash Neurologic: Denies vertigo, Denies dizziness and Denies headache(s) Psychiatric: Psychiatric: Denies anxiety [facility] Past Medical History Medical History (Updated 04/11/25 @ 19:41 by Kamron Saunders) Depression Osteoporosis Arthritis Hypertension Surgical History Hx of tonsillectomy History of total bilateral knee replacement Hx of breast biopsy Hx of arthroscopy of knee H/O colonoscopy Hx of cataract surgery Family History Family History Mother CAD (coronary artery disease) Social History Social History (Updated 04/20/24 @ 14:15 by JULIA Preciado) Household Members: None Housing: House Are you a primary team primary care physician to a significant other at home: No Do you presently have visiting nurse or other home services: Yes Alcohol intake: never Patient Tobacco Use Status: Former Tobacco user Tobacco use type: Cigarette Years Smoked: 20 Advance Directives: Yes Advance Directives on File: Yes Advance Directives Date on File: 09/20/21 Do you have a plan to hurt others: No Plan service: No Current occupational status: retired Current occupation: right hand dominant Physical Exam ED Vital Signs: Vital Signs - 24 hr 04/11/25 13:30 04/11/25 19:55 04/11/25 20:07 Temperature 96.4 F L 97 F 97 F Pulse Rate 72 71 71 Respiratory Rate 20 16 16 Blood Pressure 122/59 L 153/71 H 153/71 H Pulse Oximetry 100 99 99 Oxygen Delivery Method Room Air Room Air Room Air BMI result Body Mass Index 30.1 Const General: healthy appearing, comfortable, no acute distress, alert and awake Nutritional Appearance: well nourished Orientation/consciousness: patient oriented x3 HENMT Head: Yes normocephalic and Yes atraumatic Eyes Eyelids: Yes eyelids normal Conjunctivae: conjunctivae normal Sclerae: sclerae normal Corneas: corneas normal Pupils: Equal, round and reactive pupils present EOM: EOMs intact bilaterally Neck Neck: Yes full ROM Resp Effort & Inspection: normal respiratory effort, able to speak in complete sentences and not labored GI Inspection: No distended Palpation (GI): Soft to palpation, not firm, nontender, no guarding and not rigid Back/Spine/Pelvis Other: Tenderness in the left lumbosacral left vertebral region. No step-offs or deformities to the lumbar vertebra. Straight leg raise negative bilaterally. Skin General skin exam: elasticity normal Neuro General: patient oriented x3 Cranial nerves: Yes Equal, round and reactive pupils present and Yes Bilaterally intact EOM present Cognition (Neuro): normal cognition Extrem Other: Moving all extremities well without any obvious deformities. No calf tenderness or palpable cords Course Course Course Narrative: This is a rapid medical exam performed by Ton Rader NP: Additional HPI, ROS, PE not included below will be deferred to primary provider. Patient is an 79-year-old female presenting with complaint of left lower back pain radiating down left leg for the past week. Interfering with ambulation. Hx of sciatica. Plan: UA, x-ray Medications Administered Discontinued Medications Generic Name Dose Route Start Last Admin Trade Name Freq PRN Reason Stop Dose Admin Dexamethasone 4 mg 04/11/25 19:40 04/11/25 20:04 Dexamethasone 4 Mg Tablet PO 04/11/25 19:41 4 mg ONCE ONE Administration Medical Decision Making Medical Decision Making [facility] Narrative: [age] old female presents for evaluation of acute on chronic lower back pain. She has long history of sciatica. Denies any falls or trauma. She has radicular symptoms with the pain radiating to her left leg. There was no weakness. She is able to ambulate with a walker there was no chest pain, abdominal pain, nausea vomiting. No infectious symptoms. The patient is not able take NSAIDs due to history of chronic kidney disease. She is seeking pain management. I have a low suspicion for cauda equina syndrome. Her physical exam is reassuring she had a urinalysis that does not show any signs of hematuria or UTI. X-ray lumbar spine shows degenerative changes with no evidence of compression fractures. Discussed treatment options with the patient, we will trial dexamethasone twice a day for 3 days. The patient is not a diabetic. We will give her very low-dose oxycodone, 2.5 mg take every 8 hours as needed for pain Differential Diagnosis Differential Diagnoses: The differential diagnosis associated with the presentation includes Sciatica Low back pain Radiculopathy Muscle strain Compression fracture UTI Lab Data Labs: Lab Results 04/11/25 Range/Units 18:05 Urine Color Yellow Urine Appearance Clear Urine pH 5.5 (5.0-9.0) Ur Specific Fisher 1.025 (1.005-1.025) Urine Protein Trace (Neg-Trace) mg/dL Urine Glucose (UA) Negative (Negative) mg/dL Urine Ketones Trace (Negative) mg/dL Urine Blood Negative (Negative) Urine Nitrite Negative (Negative) Ur Leukocyte Esterase Trace H (Negative) Urine RBC 0-2 (0-2) /HPF Urine WBC 0-5 (0-5) /HPF Ur Squamous Epith Cells 0-2 (0-2) /HPF Urine Bacteria None Seen (None Seen) Hyaline Casts 11-20 (0-2) /LPF Independent Interpretation I performed an independent interpretation of an: Plain X-Ray Interpretation: Agree with Radiology interpretation Radiology Impression Discussion of test interpretation with radiology: I have reviewed the radiologist's reading. Radiologist Impression: FINDINGS: There is an S-shaped thoracolumbar scoliosis, the superior component convex to the left, apex at L1, and the inferior component convex to the right, apex at L4. There is a mildly exaggerated lumbar lordosis. There is no definite fracture, compression deformity, or suspicious bone lesion. There are several stable minimal degenerative type subluxations, most notable at L1-L2 and L2-L3. There is sclerosis of the endplates present at T12-L1, L1-2, and L3-4. Associated severe degenerative disc changes at these levels. There is otherwise mild to moderate degenerative disc changes. Facets are normally aligned. There are extensive multilevel degenerative hypertrophic facet changes bilaterally. The sacrum is intact. There are moderate degenerative changes in both SI joints. Soft tissues demonstrate diffuse vascular calcifications. XR/XR lumbar spine 2-3V IMPRESSION: 1. Scoliosis and multilevel advanced degenerative spondylosis without significant change from 03/17/2024. No acute bony abnormalities. Electronically signed by: Santi Acosta MD 04/11/2025 01:50 PM [facility] Discharge Plan Discharge Clinical Impression: Low back pain Patient Disposition: Home, Self-Care Instructions: Acute Low Back Pain (ED) Additional Instructions: Your x-ray showed fairly advanced arthritis with scoliosis, no fractures pain Your urinalysis did not show any evidence of UTI Take dexamethasone twice daily for the next 3 days. You may use oxycodone 2.5 mg every 8 hours as needed for pain pain This may make drowsy, do not drink alcohol or drive after taking it. You may continue using Tylenol for pain Follow up with your primary doctor, return for new or worsening symptoms Prescriptions: New dexamethasone 4 mg tablet 4 mg PO BID Qty: 5 0RF oxycodone 5 mg tablet 2.5 mg PO Q8H PRN (Reason: pain) Qty: 7 0RF Rx Instructions: Partial Fill upon patient request. No Action amoxicillin 500 mg tablet 2,000 mg PO ONCE Qty: 4 3RF Rx Instructions: antibiotic prophylaxis due to total knee replacements atenolol 25 mg tablet 1 tab PO DAILY naproxen 250 mg tablet 1 tab PO BID fluoxetine 10 mg capsule 1 cap PO DAILY hydrochlorothiazide 25 mg tablet 1 tab PO DAILY loratadine 10 mg tablet 1 tab PO DAILY PRN (Reason: allergies) melatonin 5 mg tablet 1 tab PO BEDTIME PRN (Reason: insomnia) acetaminophen 325 mg Tablet 650 mg PO Q6H PRN (Reason: Pain, Mild (Pain Scale 1-3)) 30 Days Qty: 240 0RF aspirin 325 mg Tablet 325 mg PO BID 42 Days Qty: 84 0RF valsartan 40 mg tablet 40 mg PO DAILY cholecalciferol (vitamin D3) 25 mcg (1,000 unit) tablet 25 mcg PO QAM amlodipine 2.5 mg tablet 2.5 mg PO BID Interventions: ED Discharge Assessment Last Done: 04/11/25 20:07 Print Language: [place]
[2025-04-11 13:30] VITALS: BP 122/59; PULSE 72; RESP 20; TEMP 35.8; O2SAT 100; BMI 30.1
[2025-04-11 18:12] LABS: Appearance Urine Clear; Glucose Urine UA Negative (Negative); PH 5.5 (5.0-9.0); Specific Gravity - Urine 1.025 (1.005-1.025); UMIC TRIGGER UACC YES
--- NOTE | 2025-04-11 18:40 | PC.NURSE ---
Pt reporting 2 weeks ago she was walking around her living complex when she hurt her left siatic. Pt reporting no injury or fall. reports similar history but denies that her PCP can get her in and she cant handle the pain anymore
[2025-04-11 19:55] VITALS: BP 153/71; PULSE 71; RESP 16; TEMP 36.1; O2SAT 99
[2025-04-11 20:07] VITALS: BP 153/71; PULSE 71; RESP 16; TEMP 36.1; O2SAT 99
== END 2025-04-11 20:05 | disposition home or self-care (01) ==
PROVIDERS: Registered Nurse Emergency; Emergency Provider Student in an Organized Health Care Education/Training Program; PCP Family Medicine
DX: M54.42 Lumbago with sciatica, left side (principal); G89.29 Other chronic pain; I12.9 Hypertensive chronic kidney disease with stage 1 through stage 4 chronic kidney disease, or unspecified chronic kidney disease; N18.9 Chronic kidney disease, unspecified; Z79.82 Long term (current) use of aspirin; Z79.899 Other long term (current) drug therapy
CPT/HCPCS: 72100; 81001; 99283; 99284; J8540

== ENCOUNTER → 2025-04-11 13:30 | Outpatient (BNV) | payer MEDICARE, MEDICAID, SELFPAY | PROVIDERS: PCP Family Medicine; Visit Provider Radiology Diagnostic Radiology | DX: M54.59 Other low back pain (principal) | CPT/HCPCS: 72100 ==

== ENCOUNTER 2025-04-17 09:16 | Emergency (ER) | payer MEDICARE, MEDICAID, SELFPAY ==
--- NOTE | ~2025-04-17 | CT_ITS ---
EXAMINATION: CT CHEST WITHOUT CONTRAST CLINICAL INFORMATION: Left rib pain COMPARISON: None available. TECHNIQUE: Multidetector volumetric CT imaging of the chest was done. Axial MIP volume rendering provided. Sagittal and coronal reformatted images were obtained. This CT examination was performed using dose optimization techniques as appropriate, variously including the following: *Automated exposure control *Adjustment of mA and/or kV according to patient size (this includes techniques or standardized protocols for targeted exams where dose is matched to indication/reason for exam; i.e. extremities or head) *Use of iterative reconstruction technique FINDINGS: LUNGS: There is mild dependent atelectasis. Lungs are clear otherwise. MEDIASTINUM: The mediastinum is normal. CORONARY ARTERY CALCIFICATION: Present PLEURA: Trace layering pleural effusions present on the left. AXILLA: No lymphadenopathy. UPPER ABDOMEN: Unremarkable. OSSEOUS STRUCTURES: There are severe degenerative changes in the visible portions of the lumbar spine. No fractures are identified. CT/CT chest wo IV con IMPRESSION: Trace left pleural effusion, no left rib fracture was identified. There are severe degenerative changes in the visible portions of the lumbar spine. Fleischner guidelines were followed. Electronically signed by: Matheus Cade MD 04/17/2025 11:01 AM KAT
[2025-04-17 09:25] VITALS: BP 152/70; PULSE 78; RESP 16; TEMP 36.7; O2SAT 99
[2025-04-17 09:32] VITALS: BP 132/78; BP 151/64; PULSE 76; PULSE 88; RESP 18; TEMP 36.7; O2SAT 99; BMI 29.9
--- NOTE | 2025-04-17 10:23 | ED.GENADULT ---
HPI - General Adult General Chief complaint: General Medical Stated complaint: SUDDEN L RIB TO BACK PAIN,NO TRAUMA Time Seen by Provider: 04/17/25 10:08 Source: patient, EMS, RN notes reviewed and old records reviewed Mode of arrival: EMS Limitations: language barrier (Tajik-speaking) History of Present Illness ED Provider: CHARLENE Banuelos HPI narrative: 79-year-old female with medical history of HTN, osteoporosis, arthritis, depression, presents to the ED due to 2 days of left-sided rib pain. Patient states Thursday she was grocery shopping when she was carrying a very heavy large bag of groceries across the parking lot, and into her apartment when she noticed a sharp pain in the left side of her lower ribs. Patient states the pain has been worsening, and she is having significant pain when moving positions, when lying down, or when trying to get up from a lying position. Additionally, patient states she has a very mild right-sided headache. Patient states she was seen in the department 6 days ago for lumbar back pain and was prescribed 6 tabs of 5 mg oxycodone, she took one this morning without relief. Denies chest pain, shortness of breath, difficulty breathing, abdominal pain, nausea, vomiting, visual changes, urinary symptoms MD complaint: Left-sided lower rib pain Related Data Home Medications ?Medication ?Instructions ?Recorded ?Confirmed atenolol 25 mg tablet 1 tab PO DAILY 06/03/21 03/29/24 fluoxetine 10 mg capsule 1 cap PO DAILY 06/03/21 03/29/24 hydrochlorothiazide 25 mg tablet 1 tab PO DAILY blood pressure 06/03/21 03/29/24 loratadine 10 mg tablet 1 tab PO DAILY PRN allergies 06/03/21 03/29/24 melatonin 5 mg tablet 1 tab PO BEDTIME PRN insomnia 06/03/21 03/29/24 naproxen 250 mg tablet 1 tab PO BID 06/03/21 03/29/24 valsartan 40 mg tablet 40 mg PO DAILY 03/29/24 03/29/24 amlodipine 2.5 mg tablet 2.5 mg PO BID 04/20/24 cholecalciferol (vitamin D3) 25 25 mcg PO QAM 04/20/24 mcg (1,000 unit) tablet Previous Rx's ?Medication ?Instructions ?Recorded acetaminophen 325 mg tablet 650 mg (2 x 325 mg) PO Q6H PRN 09/19/21 Pain, Mild (Pain Scale 1-3) 30 days #240 tabs aspirin 325 mg tablet 325 mg PO BID 42 days #84 tabs 09/19/21 amoxicillin 500 mg tablet 2,000 mg (4 x 500 mg) PO ONCE #4 09/19/22 tabs dexamethasone 4 mg tablet 4 mg PO BID #5 tabs 04/11/25 oxycodone 5 mg tablet 2.5 mg (1/2 x 5 mg) PO Q8H PRN 04/11/25 pain #7 tabs acetaminophen 500 mg tablet 500 mg PO Q6H PRN fever or pain 04/17/25 (Tylenol Extra Strength) #60 tabs Allergies Allergy/AdvReac Type Severity Reaction Status Date / Time Seasonal Allergies Allergy Intermediate sneezing/itchy Verified 04/17/25 09:34 eyes DALY Inhibitors AdvReac Intermediate Cough Verified 04/17/25 09:34 Review of Systems Review of Systems: Yes all other systems are reviewed and are negative [facility] Past Medical History Medical History (Updated 04/17/25 @ 13:18 by Dari Banuelos PA-C) Depression Osteoporosis Arthritis Hypertension Surgical History Hx of tonsillectomy History of total bilateral knee replacement Hx of breast biopsy Hx of arthroscopy of knee H/O colonoscopy Hx of cataract surgery Family History Family History Mother CAD (coronary artery disease) Social History Social History (Updated 04/20/24 @ 14:15 by JULIA Preciado) Household Members: None Housing: House Are you a primary neonatal intensive care nurse to a significant other at home: No Do you presently have visiting nurse or other home services: Yes Alcohol intake: never Patient Tobacco Use Status: Former Tobacco user Tobacco use type: Cigarette Years Smoked: 20 Smoked in Last 30 Days: No Use of substances other than those prescribed or required for medical reasons: No Advance Directives: Yes Advance Directives on File: Yes Advance Directives Date on File: 09/20/21 Do you have a plan to hurt others: No Plan service: No Current occupational status: retired Current occupation: right hand dominant Physical Exam ED Vital Signs: Vital Signs - 24 hr 11/10/25 09:25 04/17/25 09:32 04/17/25 11:41 Temperature 98.1 F 98.1 F Pulse Rate 78 76 77 Respiratory Rate 16 18 16 Blood Pressure 152/70 H 151/64 H 129/43 L Pulse Oximetry 99 99 99 Oxygen Delivery Method Room Air Room Air Room Air 04/17/25 11:57 Temperature 98.7 F Pulse Rate 74 Respiratory Rate 16 Blood Pressure 126/49 L Pulse Oximetry 97 Oxygen Delivery Method Room Air BMI result Body Mass Index 29.9 GENERAL APPEARANCE: ?AxOx4, generally well-appearing, no acute distress. HEENT: ?NC, AT. MMM. EOMI, clear conjunctiva, oropharynx clear. NECK: ?Supple without lymphadenopathy.? No stiffness or restricted ROM. HEART:? Normal rate and regular rhythm, normal S1/S2, no m/r/g LUNGS:? CTAB, moving air well. No crackles or wheezes are heard. ABDOMEN: ?Soft, nontender, nondistended with good bowel sounds heard. TTP of left side mid ribs, no ecchymosis or overlying skin changes noted, no increased work of breathing, flail chest or accessory muscle use noted. BACK: No CVAT, no obvious deformity. EXTREMITIES: ?Without cyanosis, clubbing or edema. NEUROLOGICAL: ?Grossly nonfocal. Alert and oriented, moving all 4 extremities. Skin: ?Warm and dry without any rash. Medications Administered Discontinued Medications Generic Name Dose Route Start Last Admin Trade Name Freq PRN Reason Stop Dose Admin Acetaminophen 1,000 mg in 100 mls @ 400 mls/hr 04/17/25 10:20 04/17/25 12:02 Ofirmev IV 04/17/25 10:34 Infused ONCE ONE Infusion Morphine Sulfate 4 mg 04/17/25 10:20 04/17/25 11:40 Morphine Sulfate 4 Mg/Ml Cartridge IVPUSH 04/17/25 10:21 4 mg ONCE ONE Administration Protocol Medical Decision Making Medical Decision Making MDM Narrative: 79-year-old female with medical history of HTN, osteoporosis, arthritis, depression, presents to the ED due to 2 days of left-sided rib pain after carrying a heavy bag of groceries across a parking lot to her car and then into her home. Pain is worse with positional changes, and when lying on that side. Was seen in the department 6 days ago on 04/11/2025 for lumbar back pain and was discharged with oxycodone. Patient took a dose of oxycodone this morning but did not have relief from pain. BP on initial evaluation-152/70, pulse rate is 78, respiratory rate of 16, afebrile with oral temp of 98.1?, O2 saturation 99% on room air. On physical exam TTP of left side mid ribs, no ecchymosis or overlying skin changes noted, no increased work of breathing, flail chest or accessory muscle use noted. CT chest reveals a trace left pleural effusion, without fracture dislocation or acute findings. Patient's pain and headache has resolved significantly after medicating with 1 g IV Tylenol, [address] negative for fracture or dislocation. There is no ecchymosis or overlying skin changes over the left side of the chest, no flail chest, no increased work of breathing, no accessory muscle use. At this time her symptoms are most likely due to rib contusion and/or muscle strain. Patient will be discharged home for self-care with instructions of Tylenol, as patient states she has had some kidney issues in the past and her primary care doctor told her not to take NSAIDs. Patient was recently seen in the department 6 days ago and was prescribed 6 tabs of oxycodone. I discussed possible PT eval and case management for short-term rehab placement, however patient states she has a [employer] and feels well enough to go home. Patient without fracture, no indication for narcotic medication at this time, I believe patient will be able to manage pain at home with Tylenol and icing the area, with follow up with her primary care doctor. Patient is in agreement with the plan. Differential Diagnosis Differential Diagnoses: The differential diagnosis associated with the presentation includes Pneumothorax Rib fracture Rib dislocation Rib contusion Musculoskeletal strain Admission/Observation Consideration of admission/observation: Escalation of care including admission/observation considered Independent Interpretation I performed an independent interpretation of an: CT Scan Interpretation: I personally interpreted the CT chest which was negative for fracture, dislocation, infiltrates, consolidations, pneumothorax, I agree with the radiologist's interpretation Radiology Impression Discussion of test interpretation with radiology: I have reviewed the radiologist's reading. Radiologist Impression: CT chest FINDINGS: LUNGS: There is mild dependent atelectasis. Lungs are clear otherwise. MEDIASTINUM: The mediastinum is normal. CORONARY ARTERY CALCIFICATION: Present PLEURA: Trace layering pleural effusions present on the left. AXILLA: No lymphadenopathy. UPPER ABDOMEN: Unremarkable. OSSEOUS STRUCTURES: There are severe degenerative changes in the visible portions of the lumbar spine. No fractures are identified. CT/CT chest wo IV con IMPRESSION: Trace left pleural effusion, no left rib fracture was identified. There are severe degenerative changes in the visible portions of the lumbar spine. Fleischner guidelines were followed. Electronically signed by: Matheus Cade MD 04/17/2025 11:01 AM EST Dictated By: Matheus Cade MD Signed By: <Electronically signed by Matheus Cade MD in OV> 04/17/25 1101 Independent Historian Clinical information obtained from an independent historian. History obtained from or confirmed by: EMS External Record Review External record reviewed: Inpatient record, Office record and Outpatient record Chronic Conditions Patient?s care impacted by: Hypertension and Other (Osteoporosis, arthritis, depression) Social Determinants Patient?s care significantly limited by Social Determinants of Health including: Other Social Determinant of Health Discharge Plan Discharge Clinical Impression: Contusion of rib Patient Disposition: Home, Self-Care Additional Instructions: You were evaluated in the ED for left-sided rib pain. The CT scan of your chest was negative for fracture, dislocation however does show a very small amount of fluid within the left lung, this is nonemergent, and you can follow up with your primary care doctor on these findings. To manage pain at home I recommend taking 500 mg of Tylenol every 6 hours and using ice over the affected area. Make sure to get plenty of movement in end do gentle stretching to encourage healing. Please follow up with your primary care doctor to ensure resolution of your symptoms. Return to the emergency department if you experience worsening pain, shortness of breath, difficulty breathing, fevers over 100.4?, or any new/worsening/concerning symptoms. Prescriptions: New acetaminophen [Tylenol Extra Strength] 500 mg tablet 500 mg PO Q6H PRN (Reason: fever or pain) Qty: 60 0RF No Action amoxicillin 500 mg tablet 2,000 mg PO ONCE Qty: 4 3RF Rx Instructions: antibiotic prophylaxis due to total knee replacements atenolol 25 mg tablet 1 tab PO DAILY naproxen 250 mg tablet 1 tab PO BID fluoxetine 10 mg capsule 1 cap PO DAILY hydrochlorothiazide 25 mg tablet 1 tab PO DAILY loratadine 10 mg tablet 1 tab PO DAILY PRN (Reason: allergies) melatonin 5 mg tablet 1 tab PO BEDTIME PRN (Reason: insomnia) acetaminophen 325 mg Tablet 650 mg PO Q6H PRN (Reason: Pain, Mild (Pain Scale 1-3)) 30 Days Qty: 240 0RF aspirin 325 mg Tablet 325 mg PO BID 42 Days Qty: 84 0RF valsartan 40 mg tablet 40 mg PO DAILY dexamethasone 4 mg tablet 4 mg PO BID Qty: 5 0RF oxycodone 5 mg tablet 2.5 mg PO Q8H PRN (Reason: pain) Qty: 7 0RF Rx Instructions: Partial Fill upon patient request. cholecalciferol (vitamin D3) 25 mcg (1,000 unit) tablet 25 mcg PO QAM amlodipine 2.5 mg tablet 2.5 mg PO BID Print Language: Tajik
--- OUTSIDE RECORDS SUMMARY | 2025-04-17 11:39 | XMS_ITS | Clinical Summary ---
Author Organization [employer] Address [address] [facility] [address] [place] [address] Care Team Providers Care Public Works Commissioner Name Role Phone Gerda Mc MD Primary Care Provider [phone] Alfonso Doan MD Unavailable [phone] Allergies Active Allergy Reactions Criticality Noted Date Comments George Inhibitors Cough High 02/03/2013 Medications cholecalciferol (Vitamin D-3) 25 MCG tabletIndicatio ns:Vitamin D deficiency TAKE 1 TABLET BY MOUTH ONCE DAILY IN THE MORNING 90 tablet 3 07/12/19 25 Active loratadine (Claritin) 10 MG tabletIndicatio ns:Allergic rhinitis, unspecified seasonality, unspecified trigger TAKE 1 TABLET BY MOUTH EVERY DAY FOR ALLERGIES 90 tablet 3 07/19/19 25 Active amLODIPine (Norvasc) 10 MG tabletIndicatio ns:Essential (primary) hypertension Take 1 tablet by mouth once daily 90 tablet 3 08/17/19 25 Active Blood Pressure kitIndications: Essential (primary) hypertension Use as directed 1 kit 10/11/19 25 Active senna (Senokot) 8.6 MG tabletIndicatio ns:Constipation , unspecified constipation type Take 1 tablet (8.6 mg) by mouth at bedtime. 60 tablet 2 11/11/19 25 Active bisacodyl (Dulcolax) 5 MG EC tabletIndicatio ns:Constipation , unspecified constipation type Take 1 tablet (5 mg) by mouth if needed each day for constipation. PT purchasing OTC 30 tablet 1 11/11/19 25 Active chlorhexidine (Peridex) 0.12 % solution Swish 15 mL morning and night for 1 minute. Spit, do not swallow. Do not eat or drink for 30 minutes following use. 473 mL 11/30/19 25 Active lidocaine (Lidoderm) 5 % patchIndication s:Acute pain of right shoulder Apply 1 patch topically Once per day. Remove & discard patch within 12 hours or as directed by MD. 60 patch 11 02/17/20 25 Active Diclofenac Sodium 1 % gel Apply to affected area once or twice daily 150 g 3 02/17/20 25 Active acetaminophen (Tylenol) 325 MG tabletIndicatio ns:Arthralgia of shoulder, unspecified laterality TAKE 2 TABLETS BY MOUTH EVERY 6 HOURS NEEDED FOR PAIN OF KNEE 60 tablet 1 03/22/20 25 Active atenolol (Tenormin) 25 MG tabletIndicatio ns:Primary hypertension,Hy pertension, essential TAKE 1 TABLET BY MOUTH EVERY DAY 90 tablet 3 04/10/20 25 Active atenolol (Tenormin) 25 MG tabletIndicatio ns:Primary hypertension,Hy pertension, essential take 1 tablet (25MG) by oral route every day Strength: 25 mg 90 tablet 3 03/17/20 24 025 Discontinued acetaminophen (Tylenol) 325 MG tabletIndicatio ns:Arthralgia of shoulder, unspecified laterality TAKE 2 TABLETS BY MOUTH EVERY 6 HOURS NEEDED FOR PAIN OF KNEE 60 tablet 1 11/19/19 25 025 Discontinued(R eorder (will not trigger notification to Pharmacy)) Active Problems Problem Noted Date Diagnosed Date Right shoulder pain 02/16/2025 Overview (02/16/2025): -XR 02/15/25 IMPRESSION: Concerning rotator cuff tendon tear likely chronic with associated the subluxation, acromioclavicular joint. Degenerative changes, moderate to severe, right shoulder. Synovial chondromatosis. Assessment & Plan (02/16/2025 9:44 AM EDT): [...] kidney disease) stage 4, GFR 15-29 ml/min ([facility]) 03/29/2024 Overview (11/10/2024): Lab Results Component Value [...] by followed by Dr. Alfonso Doan of [facility] -dental home is [facility] dental -health care proxy signed and filed 06/26/2023 Assessment & Plan (11/10/2024 9:17 AM EDT): -next comprehensive annual evaluation due after 06/26/2024 -eye care facilitated by followed by Dr. Alfonso Doan of [facility] -dental home is [facility] dental -health care proxy signed and filed 06/26/2023 Assessment & Plan (06/26/2023 9:49 AM EST): -next physical exam due after 06/26/2024 -eye care facilitated by followed by Dr. Alfonso Doan of [facility] -dental home is [facility] dental -health care proxy signed and filed [...] started 11/10/24 Moderate major depression, single episode (CMS/H CC) 08/19/2021 Overview (11/10/2024): Pt repots much better. Exacerbated [...] moderate physical activity discussed. - followed in [facility] HTN clinic - current medications: - continue atenolol 25 mg daily - continue Amlodipine 10 mg - medication hx: - seen in ER for hypertensive urgency 03/16/24. 03/30/24 reports stable BP's at home, BP in clinic at goal. - hydrochlorothiazide discontinued by [facility] 05/17/24 due to CrCl <30mL/min - valsartan 40 started 03/17/24, discontinue 03/30/24 - start Amlodipine 2.5 mg at night 03/30/24, increased by [facility] to 5mg once daily 05/17/24 - 03/31/24 discussed with pharmacist that bump in Creatinine could be due to Valsartan, will discontinue and start Amlodipine 2.5mg at night and recheck Creatinine in 2 weeks. - saw TM 05/17/24 increased amlodipine to 5mg once daily and discontinue hydrochlorothiazide due to CrCl <30mL/min. ARB previously discontinued 03/30/24 due to noted increase in SCR; repeat BMP ordered today. Message sent to PCP that if remains elevated, may consider referral to nephrology. - 06/21/24 [facility] increased amlodipine to 10mg once daily. - 10/10/24 [facility] Patient BP WNL for 2 consecutive visits and does not warrant further follow up in [facility] clinic; encouraged patient to continue close follow up with PCP. If further follow up is needed, please send a new referral. Assessment & Plan (02/16/2025 9:40 AM EDT): -Blood pressure is at goal - continue lifestyle modifications: importance of low-sodium diet and regular moderate physical activity discussed. - followed in [facility] HTN clinic - current medications: - continue atenolol 25 mg daily - continue Amlodipine 10 mg - medication hx: - seen in ER for hypertensive urgency 03/16/24. 03/30/24 reports stable BP's at home, BP in clinic at goal. - hydrochlorothiazide discontinued by [facility] 05/17/24 due to CrCl <30mL/min - valsartan 40 started 03/17/24, discontinue 03/30/24 - start Amlodipine 2.5 mg at night 03/30/24, increased by [facility] to 5mg once daily 05/17/24 - 03/31/24 discussed with pharmacist that bump in Creatinine could be due to Valsartan, will discontinue and start Amlodipine 2.5mg at night and recheck Creatinine in 2 weeks. - saw [facility] 05/17/24 increased amlodipine to 5mg once daily and discontinue hydrochlorothiazide due to CrCl <30mL/min. ARB previously discontinued 03/30/24 due to noted increase in SCR; repeat BMP ordered today. Message sent to PCP that if remains elevated, may consider referral to nephrology. - 06/21/24 [facility] increased amlodipine to 10mg once daily. - 10/10/24 CD Patient BP WNL for 2 consecutive visits and does not warrant further follow up in [facility] clinic; encouraged patient to continue close follow up with PCP. If further follow up is needed, please send a new referral. Assessment & Plan (11/10/2024 9:16 AM EDT): -Blood pressure is at goal - continue lifestyle modifications: importance of low-sodium diet and regular moderate physical activity discussed. - followed in [facility] HTN clinic - current medications: - continue atenolol 25 mg daily - continue Amlodipine 10 mg - medication hx: - seen in ER for hypertensive urgency 03/16/24. 03/30/24 reports stable BP's at home, BP in clinic at goal. - hydrochlorothiazide discontinued by [facility] 05/17/24 due to CrCl <30mL/min - valsartan 40 started 03/17/24, discontinue 03/30/24 - start Amlodipine 2.5 mg at night 03/30/24, increased by [facility] to 5mg once daily 05/17/24 - 03/31/24 discussed with pharmacist that bump in Creatinine could be due to Valsartan, will discontinue and start Amlodipine 2.5mg at night and recheck Creatinine in 2 weeks. - saw [facility] 05/17/24 increased amlodipine to 5mg once daily and discontinue hydrochlorothiazide due to CrCl <30mL/min. ARB previously discontinued 03/30/24 due to noted increase in SCR; repeat BMP ordered today. Message sent to PCP that if remains elevated, may consider referral to nephrology. - 06/21/24 [facility] increased amlodipine to 10mg once daily. - 10/10/24 [facility] Patient BP WNL for 2 consecutive visits and does not warrant further follow up in [facility] clinic; encouraged patient to continue close follow [...] Encounters Date Type Department Care Team Description 04/11/2025 Orders Only [facility] External Provider, [facility] 04/09/2025 Refill [facility] [address] [place] [address] Gerda Mc MD Primary hypertension; Hypertension, essential 04/07/2025 Telephone [facility] [address] [place] [phone] Gerda Mc MD April Recalls 04/07/2025 Travel 04/07/2025 Telephone [facility] [address] [place] [phone] Gerda Mc MD 03/24/[address] [address] Gerda Mc MD 03/22/[address] [address] Gerda Mc MD Arthralgia of shoulder, unspecified laterality 03/03/2025 8:00 AM EDT Office Visit [facility] [address] [place] [phone] Dakota Jose, GIULIANA 02/22/2025 2:30 PM EDT Office Visit [facility] [address] [place] [phone] Dakota Jose, DMD 02/17/2025 Orders Only [facility] [address] [place] [id number] Tiesha Anthony MD Acute pain of right shoulder (Primary Dx) 02/16/2025 9:30 AM EDT Office Visit [facility] [address] [place] [phone] Tiesha Anthony MD Acute pain of right shoulder (Primary Dx); Essential (primary) hypertension; CKD (chronic kidney disease) stage 4, GFR 15-29 ml/min (CMS/HCC); Degeneration of intervertebral disc of lumbar region with discogenic back pain 02/16/2025 Results Follow-Up [facility] [address] [place] [address] Tiesha Anthony MD XR Shoulder 2+ Views Right 02/16/2025 Travel 02/15/2025 Telephone [facility] [address] [place] [address] Tiesha Anthony MD chart prep 02/15/2025 Telephone [facility] [address] [place] [phone] Gerda Mc MD Nurse Triage 02/02/2025 8:30 AM EDT Office Visit [facility] [address] [place] [phone] Dakota Jose DMD 01/19/2025 11:00 AM EDT Office Visit [facility] [address] [place] [phone] Dakota Jose DMD from Last 3 Months Immunizations Immunization Administration [...] Sign Reading Time Taken Comments Blood Pressure 130/78 02/22/2025 1:34 PM EDT Pulse 71 02/16/2025 9:16 AM EDT [...] Care Team (Late st Contact Info) Description 04/28/2025 10:15 AM EST Office Visit [facility] [address] [facility] [place] [address] Gerda Mc MD [address] [facility] [place] [address] Health Maintenance Due Date Last Done Comments Dental Prophylaxis 1945 Dental X-Ray: Bitewings 1945 Alcohol/Substance Use Screening 1957 COVID-19 Vaccine ( season) 2025 05/11/2023, 11/26/2021, 04/24/2021, Additional history exists Influenza Vaccine (#1) 2025 , 05/11/2023, 03/14/2021, Additional history exists Depression Screening 03/17/2025 03/17/2024, 06/30/19 SDOH Screening 03/17/2025 03/17/2024 Dental Oral Exam 03/19/2025 09/16/2024 Tobacco Screening 03/03/2026 03/03/2025 Dental X-Ray: Full Mouth 09/18/2027 09/16/2024 Lipid Panel 07/29/2029 07/29/2024, 10/2023, 03/19/2021 DTaP/Tdap/Td Vaccines (3 - Td or [...] Procedure Name Priority Date/Time Associated Diagnosis Comments CT CHEST WO CONTRAST Routine 04/17/2025 10:39 AM EST URINALYSIS, COMPLETE, WITH REFLEX TO CULTURE Routine 04/11/2025 6:05 PM EST XR LUMBAR SPINE 2-3 VIEWS Routine 04/11/2025 1:20 PM EST HM MAMMOGRAPHY Routine 03/24/2025 3:48 PM EDT BI MAMMOGRAM SCREENING TOMOSYNTHESIS BILATERAL Routine 03/15/2025 10:00 AM EDT CASE PRESENTATION, DETAILED AND EXTENSIVE TREATMENT PLANNING Routine 03/03/2025 8:00 AM EDT Max COMPLETE DENTURE - MAXILLARY Routine 03/03/2025 8:00 AM EDT WAX TRY IN Routine 02/22/2025 2:30 PM EDT XR SHOULDER 2+ VIEWS RIGHT Routine 02/16/2025 9:57 AM EDT Acute pain of right shoulder DENTURE IMPRESSION Routine 02/02/2025 8: 30 AM EDT BITE REGISTRATION Routine 02/02/2025 8:3 0 AM EDT DENTURE IMPRESSION Routine 01/19/2025 11 :00 AM EDT PANORAMIC RADIOGRAPHIC IMAGE Routine 09/16/2024 10:00 AM EDT PERIODIC ORAL EVALUATION - ESTABLISHED PATIENT Routine 09/16/2024 10:00 AM EDT LIPID PANEL, STANDARD Routine 07/29/2024 9:45 AM EST from Last 3 Months or Most Recently Relevant to Health Maintenance Results * CT Chest w/o Contrast (04/17/2025 10:39 AM EST) Anatomical Region Laterality Modality Body, Chest Computed Tomogra phy 04/17/2025 10:3 9 AM EST Narrative 04/17/2025 11:03 AM EST [address] [address] [address] Scan Report Signed Patient: Kimmie Martinez MR #: [id number] : 1945 Acct:[id number] Age/Sex: 79 / F ADM Date: 04/17/25 Loc: HO.ED Attending Dr: Ordering Physician: Dari Banuelos PA-C Date of Service: 04/17/25 Procedure(s): CT chest wo IV con Accession Number(s): [id number] cc: Dari Banuelos PA-C; Gerda Mc MD Report Number: [id number]: Total DLP = 225.00 mGy-cm Reason for Exam: L sided rib pain EXAMINATION: CT CHEST WITHOUT CONTRAST CLINICAL INFORMATION: Left rib pain COMPARISON: None available. TECHNIQUE: Multidetector volumetric CT imaging of the chest was done. Axial MIP volume rendering provided. Sagittal and coronal reformatted images were obtained. This CT examination was performed using dose optimization techniques as appropriate, variously including the following: *Automated exposure control *Adjustment of mA and/or kV according to patient size (this includes techniques or standardized protocols for targeted exams where dose is matched to indication/reason for exam; i.e. extremities or head) *Use of iterative reconstruction technique FINDINGS: LUNGS: There is mild dependent atelectasis. Lungs are clear otherwise. MEDIASTINUM: The mediastinum is normal. CORONARY ARTERY CALCIFICATION: Present PLEURA: Trace layering pleural effusions present on the left. AXILLA: No lymphadenopathy. UPPER ABDOMEN: Unremarkable. OSSEOUS STRUCTURES: There are severe degenerative changes in the visible portions of the lumbar spine. No fractures are identified. CT/CT chest wo IV con IMPRESSION: Trace left pleural effusion, no left rib fracture was identified. There are severe degenerative changes in the visible portions of the lumbar spine. Fleischner guidelines were followed. Electronically signed by: Matheus Cade MD 04/17/2025 11:01 AM EST Dictated By: Matheus Cade MD Signed By: <Electronically signed by Matheus Cade MD in OV> 04/17/25 1101 DD/ 1039 TD/TT: 04/17/25 1052 [employer]ability Project Coordinator: Procedure Note Enricoter, Image - 04/17/[address] [place] [address] [address] Scan Report Signed Patient: Kimmie MaritnezMR #: [id number] : 5Acct:[id number] Age/Sex: 79 / FADM Date: 04/17/25 Loc: HO.ED Attending Dr: Ordering Physician: Dari Banuelos PA-C Date of Service: 04/17/25 Procedure(s): CT chest wo IV con Accession Number(s): [id number] cc: Dari Banuelos PA-C; Gerda Mc MD Report Number: [id number]: Total DLP = 225.00 mGy-cm Reason for Exam: L sided rib pain EXAMINATION: CT CHEST WITHOUT CONTRAST CLINICAL INFORMATION: Left rib pain COMPARISON: None available. TECHNIQUE: Multidetector volumetric CT imaging of the chest was done. Axial MIP volume rendering provided. Sagittal and coronal reformatted images were obtained. This CT examination was performed using dose optimization techniques as appropriate, variously including the following: *Automated exposure control *Adjustment of mA and/or kV according to patient size (this includes techniques or standardized protocols for targeted exams where dose is matched to indication/reason for exam; i.e. extremities or head) *Use of iterative reconstruction technique FINDINGS: LUNGS: There is mild dependent atelectasis. Lungs are clear otherwise. MEDIASTINUM: The mediastinum is normal. CORONARY ARTERY CALCIFICATION: Present PLEURA: Trace layering pleural effusions present on the left. AXILLA: No lymphadenopathy. UPPER ABDOMEN: Unremarkable. OSSEOUS STRUCTURES: There are severe degenerative changes in the visible portions of the lumbar spine. No fractures are identified. CT/CT chest wo IV con IMPRESSION: Trace left pleural effusion, no left rib fracture was identified. There are severe degenerative changes in the visible portions of the lumbar spine. Fleischner guidelines were followed. Electronically signed by: Matheus Cade MD 04/17/2025 11:01 AM EST RP Dictated By: Matheus Cade MD Signed By: <Electronically signed by Matheus Cade MD in OV> 04/17/25 1101 DD/ 1039 TD/TT: 04/17/25 1052 Sustainability Project Coordinator: us [facility] External Provider IMG CT PROCEDURES Edited Result - Final * (ABNORMAL) Urinalysis, Complete, with Reflex to Culture (04/11/2025 6:05 PM EST) Color Urine Yellow [facility] Appearance Urine Clear [facility] PH 5.5 5.0 - 9.0 [facility] Glucose Urine UA Negative Negative mg/dL [facility] Urine Blood Negative Negative [facility] Specific [place] - Urine 1.025 1.005 - 1.025 [facility] Urine Protein Trace Neg-Trace mg/dL [facility] Urine Ketones Trace Negative mg/dL [facility] Nitrite Urine Negative Negative [facility] Leukocyte Esterase Urine Trace(A) Negative [facility] RBC Urine 0-2 0 - 2 /HPF [facility] Urine WBC 0-5 0 - 5 /HPF [facility] Urine Squamous Epithelial Cell 0-2 0 - 2 /HPF [facility] Urine Bacteria None Seen None Seen [facility] Hyaline Casts, Urine 11-20 0 - 2 /LPF [facility] 04/11/2025 6:05 PM EST 04/11/2025 6:09 PM EST Narrative [facility] - 04/11/2025 6:23 PM EST [id number], [employer] External Data Provider LAB URINE ORDERAB LES Final Result [facility] [address] [place] [address] [phone] * XR Lumbar Spine 2-3 Views (04/11/2025 1:20 PM EST) Anatomical Region Laterality Modality Spine, L-spine Radiographic Eliane ging 04/11/2025 1:20 PM EST Narrative 04/11/2025 1:53 PM EST [address] [address] XRay Report Signed Patient: Kimmie Martinez MR #: [id number] : 1945 Acct:[id number] Age/Sex: 79 / F ADM Date: 04/11/25 Loc: HO.ED Attending Dr: Ordering Physician: Grace Rader NP Date of Service: 04/11/25 Procedure(s): XR lumbar spine 2-3V Accession Number(s): [id number] cc: Gerda Mc MD; Grace Rader NP Reason for Exam: L lower pain radiating down leg EXAMINATION: XR LUMBOSACRAL SPINE CLINICAL INFORMATION: L lower pain radiating down leg COMPARISON: 03/17/2024, 04/20/2018. TECHNIQUE: Three views of the lumbosacral spine. FINDINGS: There is an S-shaped thoracolumbar scoliosis, the superior component convex to the left, apex at L1, and the inferior component convex to the right, apex at L4. There is a mildly exaggerated lumbar lordosis. There is no definite fracture, compression deformity, or suspicious bone lesion. There are several stable minimal degenerative type subluxations, most notable at L1-L2 and L2-L3. There is sclerosis of the endplates present at T12-L1, L1-2, and L3-4. Associated severe degenerative disc changes at these levels. There is otherwise mild to moderate degenerative disc changes. Facets are normally aligned. There are extensive multilevel degenerative hypertrophic facet changes bilaterally. The sacrum is intact. There are moderate degenerative changes in both SI joints. Soft tissues demonstrate diffuse vascular calcifications. XR/XR lumbar spine 2-3V IMPRESSION: 1. Scoliosis and multilevel advanced degenerative spondylosis without significant change from 03/17/2024. No acute bony abnormalities. Electronically signed by: Santi Acosta MD 04/11/2025 01:50 PM EST Dictated By: Santi Acosta MD Signed By: <Electronically signed by Santi Acosta MD in OV> 04/11/25 1350 DD/ 1320 TD/TT: 04/11/25 1340 Sustainability Project Coordinator: Procedure Note Bashir, Image - 04/11/2025 [place] [address] XRay Report Signed Patient: Kimmie Martinez #: [id number] : 5Acct:[id number] Age/Sex: 79 / FADM Date: 04/11/25 Loc: HO.ED Attending Dr: Ordering Physician: Grace Rader NP Date of Service: 04/11/25 Procedure(s): XR lumbar spine 2-3V Accession Number(s): [id number] cc: Gerda Mc MD; Grace Rader NP Reason for Exam: L lower pain radiating down leg EXAMINATION: XR LUMBOSACRAL SPINE CLINICAL INFORMATION: L lower pain radiating down leg COMPARISON: 03/17/2024, 04/20/2018. TECHNIQUE: Three views of the lumbosacral spine. FINDINGS: There is an S-shaped thoracolumbar scoliosis, the superior component convex to the left, apex at L1, and the inferior component convex to the right, apex at L4. There is a mildly exaggerated lumbar lordosis. There is no definite fracture, compression deformity, or suspicious bone lesion. There are several stable minimal degenerative type subluxations, most notable at L1-L2 and L2-L3. There is sclerosis of the endplates present at T12-L1, L1-2, and L3-4. Associated severe degenerative disc changes at these levels. There is otherwise mild to moderate degenerative disc changes. Facets are normally aligned. There are extensive multilevel degenerative hypertrophic facet changes bilaterally. The sacrum is intact. There are moderate degenerative changes in both SI joints. Soft tissues demonstrate diffuse vascular calcifications. XR/XR lumbar spine 2-3V IMPRESSION: 1. Scoliosis and multilevel advanced degenerative spondylosis without significant change from 03/17/2024. No acute bony abnormalities. Electronically signed by: Santi Acosta MD 04/11/2025 01:50 PM EST RP Dictated By: Santi Acosta MD Signed By: <Electronically signed by Santi Acosta MD in OV> 04/11/25 1350 DD/ 1320 TD/TT: 04/11/25 1340 Sustainability Project Coordinator: [facility] External Provider IMG XR PROCEDURES Final Result * Mammography (03/24/2025 3:48 PM EDT) HM Mammogram BIRADS 1 Normal, Abnormal, BIRADS 1 , BIRADS 2 Anatomical Region Laterality Modality Other Historical Provider HEALTH MAINTENANCE Final Result * BI Mammogram Screening Tomosynthesis Bilateral (03/15/2025 10:00 AM EDT) Anatomical Region Laterality Modality Breast Bilateral Mammography 03/15/2025 10:0 0 AM EDT Narrative 03/24/2025 2:15 PM EDT [address] [place] [address] Mammography Report Signed Patient: Kimmie Martinez MR #: [id number] : 1945 Acct:[id number] Age/Sex: 79 / F ADM Date: 03/15/25 Loc: HO.MAMMO Attending Dr: Gerda Mc MD Ordering Physician: Gerda Mc MD Results: 1N egative Date of Service: 03/15/25 Follow Up: 1 Year From Orig ina Mammogram Procedure(s): MM tomosynthesis screening BI Accession Number(s): [id number] cc: Gerda Mc MD Reason For Exam: SCREENING EXAMINATION: MM SCREENING DIGITAL BREAST TOMOSYNTHESIS, BILATERAL CLINICAL INFORMATION: Screening. Asymptomatic. COMPARISON: Mammography: Comparison is made with available priors TECHNIQUE: Digital breast mammography with tomosynthesis is performed in both the craniocaudal and mediolateral oblique views along with computer-aided detection (CAD). FINDINGS: There are scattered areas of fibroglandular density. There are no significant masses, abnormal calcifications, or other abnormalities. MM/MM tomosynthesis screening BI IMPRESSION: No mammographic evidence of malignancy. ASSESSMENT: BI-RADS Category 1: Negative RECOMMENDATION: Routine annual mammography screening. 1 year F/U This examination should not preclude the clinical evaluation of a suspicious palpable abnormality. This patient's information was entered into a reminder system with a target due date for their next mammogram. Electronically signed by: Neena Young DO 03/24/2025 02:13 PM EDT RP Dictated By: Neena Young DO Signed By: <Electronically signed by Neena Young DO in OV> 03/24/25 1413 DD/ 1000 TD/TT: 03/15/25 1024 Sustainability Project Coordinator: Procedure Note Donotuseinterpreter, Image - 03/24/2025 [facility] [address] [place] [address] Mammography Report Signed Patient: Kimmie MartinezMR #: [id number] : 5Acct:[id number] Age/Sex: 79 / FADM Date: 03/15/25 Loc: HO.MAMMO Attending Dr: Gerda Mc MD Ordering Physician: Gerda Mc MDResults: 1N egative Date of Service: 03/15/25Follow Up: 1 Year From Orig ina Mammogram Procedure(s): MM tomosynthesis screening BI Accession Number(s): [id number] cc: Gerda Mc MD Reason For Exam: SCREENING EXAMINATION: MM SCREENING DIGITAL BREAST TOMOSYNTHESIS, BILATERAL CLINICAL INFORMATION: Screening. Asymptomatic. COMPARISON: Mammography: Comparison is made with available priors TECHNIQUE: Digital breast mammography with tomosynthesis is performed in both the craniocaudal and mediolateral oblique views along with computer-aided detection (CAD). FINDINGS: There are scattered areas of fibroglandular density. There are no significant masses, abnormal calcifications, or other abnormalities. MM/MM tomosynthesis screening BI IMPRESSION: No mammographic evidence of malignancy. ASSESSMENT: BI-RADS Category 1: Negative RECOMMENDATION: Routine annual mammography screening. 1 year F/U This examination should not preclude the clinical evaluation of a suspicious palpable abnormality. This patient's information was entered into a reminder system with a target due date for their next mammogram. Electronically signed by: Neena Young DO 03/24/2025 02:13 PM EDT Dictated By: Neena Young DO Signed By: <Electronically signed by Neena Young DO in OV> 03/24/25 1413 DD/ 1000 TD/TT: 03/15/25 1024 Sustainability Project Coordinator: us Gerda Mc MD IMG BI PROCEDURES Final Re sult * XR Shoulder 2+ Views Right (02/16/2025 9:57 AM EDT) Anatomical Region Laterality Modality Upper Extremities, Shoulder Right Radi ographic Imaging 02/16/2025 9:57 AM EDT Narrative 02/16/2025 10:07 AM EDT [address] [address] XRay Report Signed Patient: Kimmie Martinez MR #: [id number] : 1945 Acct:[id number] Age/Sex: 79 / F ADM Date: 02/16/25 Loc: HO.HHCX Attending Dr: Tiesha Anthony MD Ordering Physician: Tiesha Anthony MD Date of Service: 02/16/25 Procedure(s): XR shoulder RT min 2V Accession Number(s): [id number] cc: Gerda Mc MD; Tiesha Anthony MD [...] Vega MD in OV> 02/16/25 1004 DD/ 6 TD/TT: 02/16/2558 Sustainability Project Coordinator: Procedure Note Donotuseinterpreter, Image - 02/16/[address] [address] XRay Report Signed Patient: Kimmie MartinezMR #: [id number] : 5Acct:[id number] Age/Sex: 79 / FADM Date: 02/16/25 Loc: HO.HHCX Attending Dr: Tiesha Anthony MD Ordering Physician: Tiesha Anthony MD Date of Service: 02/16/25 Procedure(s): XR shoulder RT min 2V Accession Number(s): [id number] cc: Gerda Mc MD; Tiesha Anthony MD [...] OV> 02/16/25 1004 DD/ 6 TD/TT: 02/16/25957 Sustainability Project Coordinator: us Tiesha Anthony MD IMG XR PROCEDURES Final Result * Lipid Panel, Standard (07/29/2024 9:45 AM EST) Triglycerides 71 <150 mg/dL [facility] Comment:Desirable Triglyceri de: less than 150 mg/dLBorderline High Triglyceride 150-199 mg/dLHigh Triglyceride: 200-499 mg/dLVery High Triglyceride: greater than or equal to 5OO mg/dL Cholesterol 148 <200 mg/dL [facility] Comment:Desirable Cholestero l: less than 200 mg/dLBorderline High Cholesterol: 200-239 mg/dLHigh Cholesterol: greater than 239 mg/dL LDL Cholesterol Calculated 81 <100 mg/dL [facility] Comment:Desirable LDL: less than 100 mg/dLNear Optimal/Above Optimal LDL: 110- 129 mg/dLBorderline High LDL: 130-159 mg/dLHigh LDL: 160-189 mg/dLVery High LDL: greater than or equal to 190 mg/dL HDL Cholesterol 53 >40 mg/dL [facility] Comment:Desirable HDL: great er than 40 mg/dL Note: This HDL assay may give artificially low results in patients with liver disease. 07/29/2024 9:45 AM EST 07/29/2024 9:45 AM EST Gerda Mc MD LAB BLOOD ORDERABLES Final Result [facility] [address] [place] [address] [phone] from Last 3 Months or Most Recently Relevant to Health Maintenance Insurance MEDICARE HSN FULL [address] [place] [id number] DENTAL - HSN FULL ([place]) [id number] Advance Directives Documents on File Type Date Recorded Patient Financial Analysis Manager Expl anation Power of De Icer Installer 03/17/2024 Health Car e Proxy 03/17/24 Power of De Icer Installer 06/30/2023 HealthCare Proxy 06/26/23 Care Teams Public Works Commissioner Relationship Specialty Start Date End Date Alexandro, MD Gerda [address] [facility] [place] [address] PCP - General Family Medicine 06/08/18 Alfonso Doan MD [address] [place] [address] Ophthalmology 11/23/24
--- OUTSIDE RECORDS SUMMARY | 2025-04-17 11:39 | XMS_ITS | Encounter Summary ---
Author Organization [facility] Address [address] [facility] 7t [place] [address] Care Team Providers Care Cigar Wrapper Name Role Phone Gerda Mc MD Primary Care Provider +- [phone] Jenny [place] PharmD Unavailable [phone]- [phone] Alfonso Doan MD Unavailable [phone] Encounter Details Date Type Department Care Team ([facility] Contact Info) Description 06/24/2022 Abstract [facility] [address] [place] [phone] Gerda Mc MD [address] [place] [address] Social History Tobacco Use Types Packs/Day Years [...] Upcoming Encounters Date Type Department Care Team ([facility] Contact Info) Description 04/28/2025 10:15 AM EST Office Visit [facility] [address] [place] [phone] Gerda Mc MD [address] [place] [address] documented as of this encounter Procedures Procedure [...] on filedocumented in this encounter Care Teams Cigar Wrapper Relationship Specialty Start Date End Date Gerda Mc MD [address] [place] [address] PCP - General Family Medicine 06/08/18 Jenny [place], MarianaD [address] [place] [address] Pharmacist Internal Medicine 04/13/24 10/10/24 Alfonso Doan MD [address] [place] [address] [address] [place] [address] Ophthalmology 11/23/24 documented as of this encounter
--- OUTSIDE RECORDS SUMMARY | 2025-04-17 11:39 | XMS_ITS | Encounter Summary ---
Author Organization [employer] [facility] Address [address] [facility] 7t [place] [address] Care Team Providers Care Business Process Coordinator Name Role Phone Alexandro Gerda SOLIS Primary Care Provider +- [phone] Jenny [place] PharmD Unavailable Alfonso Doan MD Unavailable [phone] Encounter Details Date Type Department Care Team ([facility] Contact Info) Description 08/07/2022 Abstract [facility] [address] [place] [address] Dakota Jose, DMD [address] [place] [address] Social History Tobacco Use Types Packs/Day Years [...] Department Care Team (Late Contact Info) Description 04/28/2025 10:15 AM EST Office Visit [facility] [address] [place] [address] Gerda Mc MD [address] [place] [address] documented as of this encounter Visit Diagnoses Not on filedocumented in this encounter Additional Health Concerns Assessment Noted Time PHQ-9 Depression Total Score: 4 06/30/19 23 11:18 AM EST documented as of this encounter Care Teams Business Process Coordinator Relationship Specialty Start Date End Date Gerda Mc MD [address] [place] [address] PCP - General Family Medicine 06/08/18 Jenny [place], MarianaD [address] [place] [phone] Pharmacist Internal Medicine 04/13/24 10/10/24 Alfonso Doan MD [address] [place] [address] [address] [place] [address] Ophthalmology 11/23/24 documented as of this encounter
--- OUTSIDE RECORDS SUMMARY | 2025-04-17 11:39 | XMS_ITS | Encounter Summary ---
Author Organization [employer] Address [address] [facility] 7t [place] [address] Care Team Providers Care Security Messenger Name Role Phone Gerda Mc MD Primary Care Provider +- [phone] Jenny [place] PharmD Unavailable [phone] Alfonso Doan MD Unavailable [phone] Encounter Details Date Type Department Care Team (Late st Contact Info) Description 03/25/2024 Orders Only [facility] [address] [place] [address] Gerda Mc MD [address] [place] [address] Elevated serum creatinine (Primary Dx); Routine screening [...] Description 04/28/2025 10:15 AM EST Office Visit [facility] [address] [place] [address] Gerda Mc MD [address] [place] [address] documented as of this encounter Procedures Procedure [...] EDT) Sodium 140 135 - 145 mmol/L [facility] Potassium 3.5 3.3 - 5.1 mmol/L [facility] Chloride 102 96 - 108 mmol/L [facility] Carbon Dioxide 29 22 - 29 mmol/L [facility] Anion Gap 13 12 - 20 [facility] Urea Nitrogen (BUN) 34(H) 9 - 16 mg/dL [facility] Creatinine, Serum 1.84(H) 0.5 - 1.4 mg/dL [facility] Estimated Glomerular Filt Rate 26 [facility] Comment:NOTE: For -Am erican individuals, multiply the result by 1.210.Chronic Kidney Disease: Estimated GFR < 60 mL/min/1.31w4Lcwqci Kidney Disease: Estimated GFR < 15 mL/min/1.73m2 Glucose 113 60 - 115 mg/dL [facility] Calcium 9.3 8.4 - 10.2 mg/dL [facility] Blood Venous blood specimen / Unknown 03/28/2024 12:30 PM EDT 03/28/2024 12:34 PM EDT Gerda Mc MD LAB BLOOD ORDERABLES Final Result Performing Organization Address [facility]/ZIP Co de Phone Number [facility] [address] [place] [phone] * Hepatitis C Antibody with Reflex to HCV, RNA, Quantitative, Real-Time PCR (03/28/2024 12:30 PM EDT) Hepatitis C Antibody Nonreactive Nonreactive [facility] Comment:Antibodies to HCV no t detected; does not exclude early acuteHCV infection. Blood Venous blood specimen / Unknown 03/28/2024 12:30 PM EDT 03/28/2024 12:34 PM EDT Gerda Mc MD LAB BLOOD ORDERABLES Final Result Performing Organization Address [facility]/ZIP Co de Phone Number [facility] [address] [place] [phone] documented in this encounter Visit Diagnoses [...] documented as of this encounter Care Teams Security Messenger Relationship Specialty Start Date End Date Gerda Mc MD [address] [place] [address] PCP - General Family Medicine 06/08/18 Jenny [place], MarianaD [address] [place] [address] Pharmacist Internal Medicine 04/13/24 10/10/24 Alfonso Doan MD [address] [place] [address] [address] [place] [address] Ophthalmology 11/23/24 documented as of this encounter
--- OUTSIDE RECORDS SUMMARY | 2025-04-17 11:39 | XMS_ITS | Encounter Summary ---
Author Organization [employer] Address [address] [facility] 7t [place] [address] Care Team Providers Care Auto Claims Adjuster Name Role Phone Gerda Mc MD Primary Care Provider +1- [phone] Alfonso Doan MD Unavailable Reason for Visit * Reason Comments Med Refill Encounter Details Date Type Department Care Team ([facility] Contact Info) Description 10/20/[address] [facility] [address] [place] [address] Gerda Mc MD 230 [place] [address] Arthralgia of shoulder, unspecified laterality Social History [...] Description 04/28/2025 10:15 AM EST Office Visit [facility] [address] [place] [address] Gerda Mc MD [address] [place] [address] documented as of this encounter Visit Diagnoses Diagnosis Arthralgia of shoulder, unspecified laterality documented in this encounter Additional Health Concerns Assessment Noted Time PHQ-9 Depression Total Score: 4 06/30/19 23 11:18 AM EST documented as of this encounter Care Teams Auto Claims Adjuster Relationship Specialty Start Date End Date Gerda Mc MD [address] [place] [address] PCP - General Family Medicine 06/08/18 Alfonso Doan MD [address] [facility] [address] [facility] [address] [place] [address] Ophthalmology 11/23/24 documented as of this encounter
--- OUTSIDE RECORDS SUMMARY | 2025-04-17 11:39 | XMS_ITS | Encounter Summary ---
Author Organization [employer] Address [address] [facility] 7t [place] [address] Care Team Providers Care Set Up / Operator Name Role Phone Gerda Mc MD Primary Care Provider +- [phone] Jenny [place] PharmD Unavailable [phone] Alfonso Doan MD Unavailable [phone] Reason for Visit * Reason Onset Date Comments Appointment 07/29/2022 Patient called i n stating appt was cancelled by office and was instructed to call back for rescheduling DR Encounter Details Date Type Department Care Team (Late st Contact Info) Description 07/29/2022 Telephone [facility] [address] [place], [place] [phone] Dakota Jose, GIULIANA [address] [place], [place] [phone] Appointment (Patient called in stating appt was [...] Miscellaneous Notes * Telephone Encounter - Laura Fulton - 07/29/2022 10:28 AM EST Patient called in stating appt was cancelled by office and was instructed to call back for rescheduling DR documented in this encounter Plan of Treatment Upcoming Encounters Date Type Department Care Team (Late st Contact Info) Description 04/28/2025 10:15 AM EST Office Visit [facility] [address] [place] [address] Gerda Mc MD [address] [place] [address] documented as of this encounter Visit Diagnoses Not on filedocumented in this encounter Additional Health Concerns Assessment Noted Time PHQ-9 Depression Total Score: 4 06/30/19 23 11:18 AM EST documented as of this encounter Care Teams Set Up / Operator Relationship Specialty Start Date End Date Gerda Mc MD [address] [place] [address] PCP - General Family Medicine 06/08/18 Jenny [place], MarianaD [address] [place] [address] Pharmacist Internal Medicine 04/13/24 10/10/24 Alfonso Doan MD [address] [place] [address] Ophthalmology 11/23/24 documented as of this encounter
--- OUTSIDE RECORDS SUMMARY | 2025-04-17 11:39 | XMS_ITS | Encounter Summary ---
Author Organization [employer] Address [address] [facility] [address] [place] [address] Care Team Providers Care Control Systems Developer Name Role Phone Gerda Mc MD Primary Care Provider +- [phone] Jenny [place] PharmD Unavailable [phone] Alfonso Doan MD Unavailable [phone] Reason for Visit * Reason Comments Med Refill Encounter Details Date Type Department Care Team (Late st Contact Info) Description 11/24/2023 Refill [facility] [address] [place] [address] Gerda Mc MD [address] [place] [address] Arthralgia of shoulder, unspecified laterality Social History [...] 04/28/2025 10:15 AM EST Office Visit [facility] [address] [place] [phone] Gerda Mc MD [address] [place] [address] documented as of this encounter Visit Diagnoses Diagnosis Arthralgia of shoulder, unspecified laterality documented in this encounter Additional Health Concerns Assessment Noted Time PHQ-9 Depression Total Score: 4 06/30/19 23 11:18 AM EST documented as of this encounter Care Teams Control Systems Developer Relationship Specialty Start Date End Date Gerda Mc MD [address] [place] [address] PCP - General Family Medicine 06/08/18 Jenny [place], MarianaD [address] [place] [address] Pharmacist Internal Medicine 04/13/24 10/10/24 Alfonso oDan MD [address] [facility] [address] [facility] [address] [place] [address] Ophthalmology 11/23/24 documented as of this encounter
[2025-04-17 11:41] VITALS: BP 129/43; PULSE 77; RESP 16; O2SAT 99
[2025-04-17 11:57] VITALS: BP 126/49; PULSE 74; RESP 16; TEMP 37.1; O2SAT 97
[2025-04-17 13:39] VITALS: BP 126/49; PULSE 74; RESP 16; TEMP 37.1; O2SAT 97
== END 2025-04-17 13:39 | disposition home or self-care (01) ==
PROVIDERS: Emergency Provider Emergency Medicine; PCP Family Medicine
DX: S20.211A Contusion of right front wall of thorax, initial encounter (principal); M54.9 Dorsalgia, unspecified; I10 Essential (primary) hypertension; M81.0 Age-related osteoporosis without current pathological fracture; X50.9XXA Other and unspecified overexertion or strenuous movements or postures, initial encounter; Y93.89 Activity, other specified; Y92.89 Other specified places as the place of occurrence of the external cause; Y99.8 Other external cause status; Z79.899 Other long term (current) drug therapy
CPT/HCPCS: 71250; 96365; 96375; 99284; J0131; J2270

== ENCOUNTER → 2025-04-17 10:20 | Outpatient (BNV) | payer MEDICARE, MEDICAID, SELFPAY | PROVIDERS: Emergency Provider Emergency Medicine; PCP Family Medicine; Visit Provider Radiology Diagnostic Radiology | DX: R07.89 Other chest pain (principal); M47.816 Spondylosis without myelopathy or radiculopathy, lumbar region | CPT/HCPCS: 71250 ==

== ENCOUNTER 2025-05-09 10:00 | Outpatient (RCR) | payer MEDICARE, OTHER, SELFPAY | END 2025-05-09 15:37 | disposition home or self-care (01) | LOC: HO.PT 10:00 | PROVIDERS: PCP Family Medicine; Visit Provider Family Medicine | DX: M25.511 Pain in right shoulder (principal) | CPT/HCPCS: 97110; 97140; 97161 ==